=== PATIENT | male | born 1955 | race Caucasian/White ===

== ENCOUNTER 2022-05-12 13:16 | Inpatient (IN) | payer OTHER, BC ==
[~2022-05-12] VITALS: Ht 177.8 cm; Wt 88.8 kg
[2022-05-12] MEDS ORDERED: fentaNYL INJ 100 MCG/2 ML AMP IVP ONE (13:45)
--- NOTE | 2022-05-12 14:26 | ED Fall/Injury ---
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 Source: patient Exam Limitations: no limitations History of Present Illness Date Seen by Provider: May 12, 2022 Time Seen by Provider: 13:33 Initial Comments This is 66-year-old gentleman presents to the emergency room by private vehicle after having a fall injury at work. 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 He got tangled up and fell landing directly on his right hip. He denies any injury other than the right hip and knee. He has shortening and external rotation of the right lower extremity. He complains of significant pain in the right hip as well as some lesser pain in the right knee. 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 His only medications are related to his vision issues. 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 I later spoke with patient's sister, Bev Slater, who helps care for him. She can be contacted at [phone]. She lives in [place]. Bev states that Brennen has high functioning intellectual disability. He can write some but does not read well. He is his own guardian but should not sign paperwork without her input due to his illiteracy. His supervisors at work are Bethany Mccain and Gabriela Hector at [employer] and they can be contacted at [phone]. Patient reports he gets a monthly injection which Bev identifies as Prolixin. This is administered by [facility]. Patient has a business card showing that his next appointment for injection is May 31. Allergies and Home Medications Allergies Coded Allergies: No Known Drug Allergies (Unverified , 05/12/22) Patient Home Medication List Home Medication List Reviewed: Yes Benztropine Mesylate (Benztropine Mesylate) 2 Mg Tablet, 2 MG PO BID, (Reported) Entered as Reported by: NARAYAN OROZCO on 05/12/222009 Last Action: Reviewed Fluphenazine Decanoate (Fluphenazine Decanoate) 25 Mg/Ml Vial, 0.75 ML IJ Q3 WEEKS, (Reported) Entered as Reported by: NARAYAN OROZCO on 05/12/222009 Last Action: Reviewed Review of Systems Review of Systems Constitutional: no symptoms reported Eyes: No Symptoms Reported Ears, Nose, Mouth, Throat: no symptoms reported Respiratory: no symptoms reported Cardiovascular: no symptoms reported Gastrointestinal: no symptoms reported Genitourinary: no symptoms reported Musculoskeletal: see HPI Skin: no symptoms reported Psychiatric/Neurological: See HPI Past Dzmkwyj-Ojmmme-Gdxfon Hx Patient Social History Tobacco Use?: No Use of E-Cig and/or Vaping dev: No Substance use?: No Alcohol Use?: No Pt feels they are or have been: No Past Medical History Surgery/Hospitalization HX: LEGALLY BLIND Surgeries: No Respiratory: No Cardiac: No Neurological: Yes (High functioning intellectual disability) Reproductive Disorders: No Genitourinary: No Gastrointestinal: No Musculoskeletal: No Endocrine: No HEENT: Yes (Legally blind) Loss of Vision: Bilateral Cancer: No Psychosocial: No Integumentary: No Physical Exam Vital Signs Vital Signs - First Documented 05/12/22 13:28 Temp 36.3 Pulse 90 Resp 16 B/P (MAP) 131/78 (95) Pulse Ox 97 O2 Delivery Room Air Capillary Refill : Less Than 3 Seconds Height, Weight, BMI Height: '" Weight: lbs. oz. kg; BMI Method: General Appearance: WD/WN, mild distress HEENT: PERRL/EOMI, normal ENT inspection Neck: normal inspection Cardiovascular: regular rate, rhythm, no edema, no murmur Respiratory: lungs clear, normal breath sounds, no respiratory distress Gastrointestinal: normal bowel sounds, non tender, soft Extremities: other (Shortening and external rotation of the right lower extremity with tenderness over the hip. Lesser tenderness through the thigh into the knee. Distal exam is unremarkable. Pedal pulse is palpable. Patient can wiggle his toes. He describes decreased sensation.) Progress/Results/Core Measures Results/Orders Lab Results Laboratory Tests Test 05/12/22 13:40 Range/Units White Blood Count 8.6 4.3-11.0 10^3/uL Red Blood Count 3.67 L 4.30-5.52 10^6/uL Hemoglobin 11.3 L 13.3-17.7 g/dL Hematocrit 33 L 40-54 % Mean Corpuscular Volume 90 80-99 fL Mean Corpuscular Hemoglobin 31 25-34 pg Mean Corpuscular Hemoglobin Concent 34 32-36 g/dL Red Cell Distribution Width 12.3 10.0-14.5 % Platelet Count 197 130-400 10^3/uL Mean Platelet Volume 10.6 9.0-12.2 fL Immature Granulocyte % (Auto) 0 % Neutrophils (%) (Auto) 76 H 42-75 % Lymphocytes (%) (Auto) 16 12-44 % Monocytes (%) (Auto) 7 0-12 % Eosinophils (%) (Auto) 1 0-10 % Basophils (%) (Auto) 0 0-10 % Neutrophils # (Auto) 6.5 1.8-7.8 10^3/uL Lymphocytes # (Auto) 1.4 1.0-4.0 10^3/uL Monocytes # (Auto) 0.6 0.0-1.0 10^3/uL Eosinophils # (Auto) 0.1 0.0-0.3 10^3/uL Basophils # (Auto) 0.0 0.0-0.1 10^3/uL Immature Granulocyte # (Auto) 0.0 0.0-0.1 10^3/uL Prothrombin Time 14.5 12.2-14.7 SEC INR Comment 1.1 0.8-1.4 Activated Partial Thromboplast Time 31 24-35 SEC Sodium Level 138 135-145 MMOL/L Potassium Level 3.8 3.6-5.0 MMOL/L Chloride Level 102 98-107 MMOL/L Carbon Dioxide Level 27 21-32 MMOL/L Anion Gap 9 5-14 MMOL/L Blood Urea Nitrogen 10 7-18 MG/DL Creatinine 0.96 0.60-1.30 MG/DL Estimat Glomerular Filtration Rate 88 BUN/Creatinine Ratio 10 Glucose Level 107 H 70-105 MG/DL Calcium Level 8.8 8.5-10.1 MG/DL Corrected Calcium 8.8 8.5-10.1 MG/DL Total Bilirubin 0.5 0.1-1.0 MG/DL Aspartate Amino Transf (AST/SGOT) 16 5-34 U/L Alanine Aminotransferase (ALT/SGPT) 16 0-55 U/L Alkaline Phosphatase 62 40-136 U/L Total Protein 6.9 6.4-8.2 GM/DL Albumin 4.0 3.2-4.5 GM/DL My Orders Orders - HAILY GAR MD Fentanyl Inj (Sublimaze Injection) (05/12/22 13:45) Ed Iv/Invasive Line Start (05/12/22 13:40) Femur 2 View Right (05/12/22 13:41) Pelvis (Ap) (05/12/22 13:41) Tibia Fibula 2 View Right (05/12/22 13:41) Cbc With Automated Diff (05/12/22 14:51) Comprehensive Metabolic Panel (05/12/22 14:51) Protime With Inr (05/12/22 14:51) Partial Thromboplastin Time (05/12/22 14:51) Chest 1 View Ap/Pa Only (05/12/22 14:51) Morphine Injection (Morphine Injection (05/12/22 14:51) Medications Given in ED Vital Signs/I&O 05/12/22 05/12/22 13:28 14:49 Temp 36.3 36.3 Pulse 90 85 Resp 16 16 B/P (MAP) 131/78 (95) 124/68 Pulse Ox 97 99 O2 Delivery Room Air Room Air Blood Pressure Mean: 95 Progress Progress Note : Time: 15:31 Progress Note Patient was found to have right hip fracture. Admission was excepted by Dr. PATTERSON at [facility] in [place]. He asked that the attending be assigned to the hospitalist service. Patient has been treated with fentanyl and morphine for pain control. Diagnostic Imaging Diagonstic Imaging: Xray Plain Films/CT/US/NM/MRI: pelvis, femur, leg Comments All x-rays reviewed by me and report reviewed. See report below: NAME: BRENNEN SHORE Brodie [facility] REC#: [id number] PT STATUS: REG ER : 1955 PHYSICIAN: HAILY GAR MD ADMIT DATE: 05/12/22/ER FS Draft Date of Exam:05/12/22 TIBIA FIBULA 2 VIEW RIGHT CLINICAL INDICATIONS: Patient status post fall. EXAMS: 1.: X-ray of the pelvis AP view. 2: X-ray of the right femur, 4 views. 3: X-ray of the right tibia-fibula, 3 views. COMPARISON: None. FINDINGS: X-rays of the right femur and pelvis shows a comminuted intertrochanteric fracture involving the proximal right femur with varus angulation. There is slight medial displacement of the lesser trochanteric fracture component. The right femoral acetabular joint space is intact. There is no other fracture involving the right femur. There is no fracture involving the pelvis or left hip. There is enthesopathy of the ischium. There is mild sclerosis of sacroiliac joints. There are degenerative spurs involving the lower lumbar spine. Phleboliths are seen in the pelvis. There are small degenerative spurs involving the tricompartmental regions with the lateral compartment affected the most. There is joint space narrowing involving the medial compartment. There is no right knee effusion. The tibia fibula show no fractures. Ankle mortise and syndesmotic joints unremarkable. IMPRESSION: 1: There is a comminuted intertrochanteric fracture involving the proximal right femur with varus angulation. 2: The remainder of the pelvis, right femur, and right tibia fibula show no other fracture or dislocation. 3: There is degenerative disease of the right knee. Dictated on workstation # [id number] Dict: 05/12/22 1421 Trans: 05/12/22 1428 [facility] [id number] Interpreted by: AAMIR LEGGETT MD Departure Communication (Admissions) Time/Spoke to Admitting Phy: 15:25 Dr. Patterson Time/Spoke to Consulting Phy: 15:40 Dr. Key Impression Primary Impression: Intertrochanteric fracture of right hip Qualified Codes: S72.141A - Displaced intertrochanteric fracture of right femur, initial encounter for closed fracture Additional Impression: Fall on same level Qualified Codes: W18.30XA - Fall on same level, unspecified, initial encounter Disposition: 01 HOME, SELF-CARE Condition: Stable Admissions Decision to Admit Reason: Admit from ER (General) Decision to Admit/Date: May 12, 2022 Time/Decision to Admit Time: 15:25 Transfer Transfer Reason: Exceeds level of care Time Spoke to Accepting Phy: 15:25 Transfer Progress Notes Transfer accepted by Dr. Patterson with Dr. Key consulted. Transfer Time: 15:30 Transfer Facility: [facility] Method of Transfer: EMS HAILY GAR MD May 12, 2022 14:26
[2022-05-12] MEDS ORDERED: morphine INJ 10 MG/ML 1ML (SYR OR VIAL) IVP STA (14:51)
[2022-05-12 15:05] LABS: BASOPHILS % (AUTO) 0 % (0-10); EOSINOPHILS # (AUTO) 0.1 10^3/uL (0.0-0.3); EOSINOPHILS % (AUTO) 1 % (0-10); HEMATOCRIT 33 % (40-54); HEMOGLOBIN 11.3 g/dL (13.3-17.7); LYMPHOCYTES # (AUTO) 1.4 10^3/uL (1.0-4.0); LYMPHOCYTES % (AUTO) 16 % (12-44); MEAN CORPUSCULAR HEMOGLOBIN 31 pg (25-34); MEAN CORPUSCULAR HGB CONC 34 g/dL (32-36); MEAN CORPUSCULAR VOLUME 90 fL (80-99); MEAN PLATELET VOLUME 10.6 fL (9.0-12.2); MONOCYTES # (AUTO) 0.6 10^3/uL (0.0-1.0); MONOCYTES % (AUTO) 7 % (0-12); NEUTROPHILS # (AUTO) 6.5 10^3/uL (1.8-7.8); NEUTROPHILS % (AUTO) 76 % (42-75); PLATELET COUNT 197 10^3/uL (130-400); WHITE BLOOD COUNT 8.6 10^3/uL (4.3-11.0)
--- NOTE | 2022-05-12 15:07 | Diagnostic Imaging Report ---
EXAMINATION: Chest, one view. HISTORY: Preoperative evaluation. COMPARISON: None available. FINDINGS: Heart size and pulmonary vasculature are normal. The lungs are clear without consolidation, pleural effusion, or pneumothorax. Degenerative changes of the thoracic spine. Osseous structures are otherwise intact. IMPRESSION: 1. No acute radiographic abnormality in the chest. Dictated by: Dictated on workstation # [id number]
[2022-05-12 15:11] LABS: INR 1.1 (0.8-1.4); PROTHROMBIN TIME PATIENT 14.5 SEC (12.2-14.7)
[2022-05-12 15:17] LABS: POTASSIUM 3.8 MMOL/L (3.6-5.0)
[2022-05-12 15:18] LABS: BILIRUBIN,TOTAL 0.5 MG/DL (0.1-1.0); CALCIUM 8.8 MG/DL (8.5-10.1); CREATININE SERUM 0.96 MG/DL (0.60-1.30); TOTAL PROTEIN 6.9 GM/DL (6.4-8.2)
--- NOTE | 2022-05-12 16:16 | Diagnostic Imaging Report ---
CLINICAL INDICATIONS: Patient is status post fall. EXAMS: 1.: X-ray of the pelvis AP view. 2: X-ray of the right femur, 4 views. 3: X-ray of the right tibia-fibula, 3 views. COMPARISON: None. FINDINGS: X-rays of the right femur and pelvis shows a comminuted intertrochanteric fracture involving the proximal right femur with varus angulation. There is slight medial displacement of the lesser trochanteric fracture component. The right femoral acetabular joint space is intact. There is no other fracture involving the right femur. There is no fracture involving the pelvis or left hip. There is enthesopathy of the ischium. There is mild sclerosis of sacroiliac joints. There are degenerative spurs involving the lower lumbar spine. Phleboliths are seen in the pelvis. There are small degenerative spurs involving the tricompartmental regions with the lateral compartment affected the most. There is joint space narrowing involving the medial compartment. There is no right knee effusion. The tibia fibula show no fractures. Ankle mortise and syndesmotic joints unremarkable. IMPRESSION: 1: There is a comminuted intertrochanteric fracture involving the proximal right femur with varus angulation. 2: The remainder of the pelvis, right femur, and right tibia fibula show no other fracture or dislocation. 3: There is degenerative disease of the right knee. Dictated by: Dictated on workstation # [id number]
[2022-05-12 17:30] VITALS: BP 108/64
[2022-05-12] MEDS: LACTATED RINGERS 1,000 ML IV SCH (18:50)
--- NOTE | 2022-05-12 19:05 | HISTORY AND PHYSICAL ---
REASON FOR REFERRAL: Right intertrochanteric femur fracture. HISTORY: The patient is a 66-year-old gentleman who fell at work while pushing a cart. He got tangled up and fell on his right hip. He presented to an outside facility where he was found to have a right intertrochanteric femur fracture. He denies any significant past medical history regarding his hip. He reports he was doing well prior to that. He has some mild intellectual disability, but is independently living. He denies paresthesias. ALLERGIES: No known drug allergies. PAST MEDICAL HISTORY: significant for mental health. MEDICATIONS: Antischizophrenic q. month. PHYSICAL EXAMINATION: GENERAL: The patient is well-developed, well-nourished, in no acute distress. HEENT: Normocephalic, atraumatic. Pupils equal, round, react to light. Oropharynx is clear. NECK: Supple, with no lymphadenopathy. LUNGS: Clear to auscultation bilaterally. HEART: Regular rate and rhythm. ABDOMEN: Soft, nontender, nondistended. EXTREMITIES: Right lower extremity shortened and externally rotated. He has pain with internal and external rotation of the hip. He has symmetric pulses with intact sensation distally. He is tender over the lateral aspect of his hip. IMPRESSION: Closed displaced right intertrochanteric femur fracture. PLAN: Intramedullary nail to the right hip. The risks, benefits, options, and limitations and recovery were discussed with the patient and his sister. They understand and wished to proceed. Job ID: [id number] DocumentID: [id number] Dictated Date: 05/12/2022 18:50:41 [employer]othermal Operations Manager Date: 05/12/2022 19:03:00 Dictated By: IRMA HOLDEN MD
[2022-05-12] MEDS: morphine INJ 10 MG/ML 1ML (SYR OR VIAL) IV PRN (19:32)
[2022-05-12 20:00] VITALS: BP 128/76
[2022-05-12] MEDS ORDERED: BENZ2TAB6 PO (20:10)
[2022-05-12] MEDS ORDERED: FLUP25VI3 IJ (20:10)
[2022-05-12 23:12] VITALS: BP 121/72
[2022-05-13] VITALS (9 sets, daily range): BP systolic 118–136; BP diastolic 70–80
[2022-05-13] MEDS: morphine INJ 10 MG/ML 1ML (SYR OR VIAL) IV PRN ×3 (03:34→13:42)
[2022-05-13] MEDS: LACTATED RINGERS 1,000 ML IV SCH ×2 (03:34→13:42)
--- NOTE | 2022-05-13 06:51 | Progress Note-Pre Operative ---
Pre-Operative Progress Note Date of Available H&P: May 12, 2022 Date H&P Reviewed: May 13, 2022 Time H&P Reviewed: 06:51 Changes from last HP none Pre-Operative Diagnosis: right intertrochanteric femur fracture IRMA HOLDEN MD May 13, 2022 06:51
--- NOTE | 2022-05-13 06:52 | Progress Note-Post Operative ---
Post-Operative Progess Note Surgeon (s)/Service Team Leader (s) Surgeon IRMA HOLDEN MD Service Team Leader: Maximilian Clark Pre-Operative Diagnosis right intertrochanteric femur fracture Post-Operative Diagnosis right intertrochanteric femur fracture Procedure & Operative Findings Date of Procedure 05/13/22 Procedure Performed/Findings right hip intramedullary nail Anesthesia Type GETA Estimated Blood Loss Estimated blood loss (mL): 100ml Specimens/Packing Specimens Removed none Packing: none IRMA HOLDEN MD May 13, 2022 06:52
--- NOTE | 2022-05-13 10:16 | History & Physical-Hospitalist ---
History of Present Illness Date Seen 05/13/22 Time Seen by a Provider: 10:16 Attending Physician Chikis,Local Physician PCP Admitting Physician: Peter Patterson MD Attending Physician: Peter Patterson MD Referring Physician Date of Admission May 12, 2022 at 17:20 Home Medications & Allergies Home Medications Reviewed patient Home Medication Reconciliation performed by pharmacy medication reconciliations food service technician and/or nursing. Patients Allergies have been reviewed. Allergies Allergies Coded Allergies No Known Drug Allergies (Ktqkdxpubw19/15/22) Past Hlwpwtx-Onzweo-Xzccmf Hx Patient Social History Tobacco Use?: No Smoking Status: Never a Smoker Use of E-Cig and/or Vaping dev: No Use of E-Cig and/or Vaping Jc: Never a User Substance use?: No Alcohol Use?: No Pt feels they are or have been: No Immunizations Up To Date Date of Influenza Vaccine: Feb 10, 2022 Tetanus Booster (TDap): Unknown Hepatitis A: No Hepatitis B: No Current Status Advance Directives: No Communicates: Verbally Primary Language: Italian Preferred Spoken Language: Italian Is interpretation needed?: No Sensory deficits: Vision impairment Implanted or Applied Medical D: None Past Medical History Loss of Vision: Bilateral Physical Exam Physical Exam Vital Signs Vital Signs - First Documented 05/12/22 13:28 Temp 36.3 Pulse 90 Resp 16 B/P (MAP) 131/78 (95) Pulse Ox 97 O2 Delivery Room Air Capillary Refill : Less Than 3 Seconds Height, Weight, BMI Height: '" Weight: lbs. oz. kg; 28.08 BMI Method: Results Results/Procedures Labs Laboratory Tests 05/12/22 13:40 Patient resulted labs reviewed. AMEE LEO MD May 13, 2022 10:16
--- NOTE | 2022-05-13 10:17 | Consultation - Hospitalist ---
HPI History of Present Illness: HPI/Chief Complaint Patient is a 66-year-old male who presented to the emergency department due to a fall and hip injury. 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 Imaging revealed a right hip fracture. He was admitted to the orthopedic surger y service for operative repair. I am consulted for medical management. He denies any complaints at this time and states his pain is well controlled. He is unsure when he will go to surgery but has already seen the surgeon and reports that it will be sometime today. Exam Limitations: no limitations Date Seen 05/13/22 Attending Physician Chikis,Local Physician PCP Admitting Physician: Peter Patterson MD Attending Physician: Peter Patterson MD Referring Physician Date of Admission May 12, 2022 at 17:20 Home Medications & Allergies Home Medications Reviewed patient Home Medication Reconciliation performed by pharmacy medication reconciliations radiochemical technician and/or nursing. Patients Allergies have been reviewed. Allergies Allergies Coded Allergies No Known Drug Allergies (Usmuqhoahh16/15/22) Past Adhnctn-Aubyby-Pgfdcz Hx Patient Social History Tobacco Use?: No Smoking Status: Never a Smoker Use of E-Cig and/or Vaping dev: No Use of E-Cig and/or Vaping Jc: Never a User Substance use?: No Alcohol Use?: No Pt feels they are or have been: No Immunizations Up To Date Date of Influenza Vaccine: Feb 10, 2022 Tetanus Booster (TDap): Unknown Hepatitis A: No Hepatitis B: No Current Status Advance Directives: No Communicates: Verbally Primary Language: Marshallese Preferred Spoken Language: Marshallese Is interpretation needed?: No Sensory deficits: Vision impairment Implanted or Applied Medical D: None Past Medical History Loss of Vision: Bilateral Family Medical History Reviewed Nursing Family Hx Review of Systems Constitutional: no symptoms reported EENTM: no symptoms reported Respiratory: no symptoms reported Cardiovascular: no symptoms reported Gastrointestinal: no symptoms reported Genitourinary: no symptoms reported Musculoskeletal: see HPI, joint pain Skin: no symptoms reported Psychiatric/Neurological: No Symptoms Reported Physical Exam Physical Exam Vital Signs Vital Signs - First Documented 05/12/22 13:28 Temp 36.3 Pulse 90 Resp 16 B/P (MAP) 131/78 (95) Pulse Ox 97 O2 Delivery Room Air Capillary Refill : Less Than 3 Seconds Height, Weight, BMI Height: '" Weight: lbs. oz. kg; 28.08 BMI Method: General Appearance: No Apparent Distress, WD/WN HEENT: PERRL/EOMI, Moist Mucous Membranes; No Scleral Icterus (L), No Scleral Icterus (R) Neck: Normal Inspection, Supple Respiratory: Lungs Clear, No Accessory Muscle Use, No Respiratory Distress Cardiovascular: Regular Rate, Rhythm, No JVD, No Murmur Gastrointestinal: Normal Bowel Sounds, Non Tender, Soft Extremity: Normal Capillary Refill, No Calf Tenderness, No Pedal Edema Neurologic/Psychiatric: Alert, Oriented x3, Normal Mood/Affect Skin: Normal Color, Warm/Dry Results Results/Procedures Labs Laboratory Tests 05/12/22 13:40 Patient resulted labs reviewed. Imaging: Reviewed Imaging Report Imaging [facility] [place] NAME: SANOTS SHORE [facility] REC#: [id number] PT STATUS: REG ER : 1955 PHYSICIAN: HAILY GAR MD ADMIT DATE: 05/12/22/ER FS Signed Date of Exam:05/12/22 PELVIS (AP) CLINICAL INDICATIONS: Patient is status post fall. EXAMS: 1.: X-ray of the pelvis AP view. 2: X-ray of the right femur, 4 views. 3: X-ray of the right tibia-fibula, 3 views. COMPARISON: None. FINDINGS: X-rays of the right femur and pelvis shows a comminuted intertrochanteric fracture involving the proximal right femur with varus angulation. There is slight medial displacement of the lesser trochanteric fracture component. The right femoral acetabular joint space is intact. There is no other fracture involving the right femur. There is no fracture involving the pelvis or left hip. There is enthesopathy of the ischium. There is mild sclerosis of sacroiliac joints. There are degenerative spurs involving the lower lumbar spine. Phleboliths are seen in the pelvis. There are small degenerative spurs involving the tricompartmental regions with the lateral compartment affected the most. There is joint space narrowing involving the medial compartment. There is no right knee effusion. The tibia fibula show no fractures. Ankle mortise and syndesmotic joints unremarkable. IMPRESSION: 1: There is a comminuted intertrochanteric fracture involving the proximal right femur with varus angulation. 2: The remainder of the pelvis, right femur, and right tibia fibula show no other fracture or dislocation. 3: There is degenerative disease of the right knee. Dictated by: Dictated on workstation # [id number] Dict: 05/12/22 1421 Trans: 05/12/22 1614 [id number] Interpreted by: AAMIR LEGGETT MD Electronically signed by: AAMIR LEGGETT MD 05/12/22 1614 Assessment/Plan Assessment and Plan Assess & Plan/Chief Complaint Right hip fracture Management per primary Pain regimen Plan for OR today per patient NPO PT/OT following surgery IRF eval pending out PT goes Presumed schizophrenia Maintained on fluphenazine DVT ppx: Following surgery Diagnosis/Problems Diagnosis/Problems (1) Intertrochanteric fracture of right hip Status: Acute Qualifiers: Encounter type: initial encounter Fracture type: closed Fracture alignment: displaced Qualified Codes: S72.141A - Displaced intertrochanteric fracture of right femur, initial encounter for closed fracture AMEE LEO MD May 13, 2022 10:17
[2022-05-13] MEDS ORDERED: ONDANSETRON 4 MG/2 ML (SDV) Z0FRAN ONE (13:59)
[2022-05-13] MEDS ORDERED: proPOfol 200 MG/20 ML (DIPRIVAN) VIAL IV ONE (13:59)
[2022-05-13] MEDS ORDERED: fentaNYL INJ 100 MCG/2 ML AMP ONE (13:59)
[2022-05-13] MEDS ORDERED: MIDAZOLAM 2 MG/2 ML (VERSED) VIAL ONE (13:59)
[2022-05-13] MEDS ORDERED: SEVOFLURANE (ULTANE) 15 ML INHAL SOLN ONE ×2 (13:59→15:42)
[2022-05-13] MEDS ORDERED: LIDOCAINE PF 2% 5 ML (XYLOCAINE) VIAL ONE (13:59)
[2022-05-13] MEDS ORDERED: BUPIVACAINE 0.25% 30 ML (SENSORCAINE) VIAL ONE (14:04)
[2022-05-13] MEDS ORDERED: LACTATED RINGERS 1,000 ML IV PRN (14:15)
[2022-05-13] MEDS ORDERED: morphine INJ 4 MG/ML 1 ML (VIAL/SYRINGE) IVP PRN (14:30)
[2022-05-13] MEDS ORDERED: ONDANSETRON 4 MG/2 ML (SDV) Z0FRAN IVP PRN ×2 (14:30→15:45)
[2022-05-13] MEDS: ceFAZolin INJECTION 2,000 MG in NS (IVPB) 50 ML IV SCH (14:35)
[2022-05-13] MEDS ORDERED: ROPIVACAINE 5MG/ML 30ML VIAL ONE (14:48)
[2022-05-13] MEDS ORDERED: ceFAZolin INJECTION 2,000 MG in NS (IVPB) 50 ML IV NR (15:00)
[2022-05-13] MEDS ORDERED: KETOROLAC 30 MG/ML VIAL ONE (15:18)
[2022-05-13] MEDS ORDERED: OXYC1TAB11 PO (15:36)
--- NOTE | 2022-05-13 15:38 | D/C HH Face to Face Order ---
D/C Face to Face Orders Reconcile Patient Problems Problems Reviewed?: Yes Instructions for Patient [facility] [employer], Patient Instructions/FollowUp: two weeks Physician to follow Patient: two weeks Discharge Diet for Home: Regular Diet Patient Data-Allergies,Ht & Wt Patient Allergies: Coded Allergies: No Known Drug Allergies (Unverified , 05/12/22) Home Health Need/Face to Face Date of Face to Face: May 13, 2022 Clinical Findings: Instability, Muscle weakness, Non or partial weight bearing, Unsteady gait I have seen Pt wenl-bt-blvx: Yes Discharged To: Home Diagnosis/Conditions: right hip IM nail Patient is Homebound due to: Jayashree fall risk due to instabilty, Pain w/ambulation Homebound Status Due to the above stated illness, injury or surgical procedure (medical condition or diagnosis) and associated clinical findings, the patient is homebound because of his/her inability to leave home except with aid of a supportive device and/or person AND leaving the home requires a considerable and taxing effort or is medically contraindicated. Pt req the following assistanc: [facility] Nursing Orders Home Health Services Order: Physical Therapy-Evaluate & Treat [facility] Infusion Therapy Line Start Date: May 12, 2022 Therapy Orders Therapy Orders: Physical Therapy, PT to assess for OT Therapy Specific Orders: Eval assistive deivces, Teach enviro modifica tions/safety, Gait training, Increase strength/endurance, Provider maintenance therapy, Restore ROM Certify Stmt I certify that this patient is under my care and that I, a nurse practitioner or a physician; a program services assistant working with me, had a face to face encounter that - meets the physician face to face encounter requirements with this patient as dated. IRMA HOLDEN MD May 13, 2022 15:38
[2022-05-13] MEDS ORDERED: HYDROmorphone 2 MG/ML VIAL (DILAUDID) IV ONE (15:45)
--- NOTE | 2022-05-13 16:19 | Diagnostic Imaging Report ---
INDICATION: Right hip fracture. Three views are obtained with a portable intensifier in surgery. 60.3 seconds of fluoroscopy time was used. Intraoperative views demonstrate hardware in place in the right proximal femur in the femoral neck and shaft, with anatomic alignment of the intertrochanteric fracture. There is no unexpected radiopaque foreign body. IMPRESSION: Well-aligned intertrochanteric fracture of right proximal femur with no unexpected radiopaque foreign body. Dictated by: Dictated on workstation # [id number]
[2022-05-14] VITALS (7 sets, daily range): BP systolic 116–134; BP diastolic 63–75
--- NOTE | 2022-05-14 01:28 | OPERATIVE REPORT ---
DATE OF SERVICE: 05/13/2022 PREOPERATIVE DIAGNOSIS: Closed displaced right intertrochanteric femur fracture. POSTOPERATIVE DIAGNOSIS: Closed displaced right intertrochanteric femur fracture. PROCEDURE: Right hip intramedullary nail. SURGEON: Peter Holden MD REPAIR ORDER CLERK: Maximilian Clark, who assisted throughout the procedure and closed the incisions. ANESTHESIA: General endotracheal by Lucian Lemus CRNA. ESTIMATED BLOOD LOSS: 100 mL. DRAINS: None. COMPLICATIONS: None. POSTOPERATIVE PLAN: Toe touch weightbearing right lower extremity. MATERIALS: Synthes short TFN nail, 10 mm diameter with a 110 mm blade. The patient was transported to recovery room awake and stable. STATEMENT OF MEDICAL NECESSITY: The patient is a 66-year-old gentleman who fell at work yesterday and was found to have a closed displaced right intertrochanteric femur fracture. In order to maintain his ambulatory status, the patient elected to proceed with surgical intervention. DESCRIPTION OF PROCEDURE: After risks and benefits of the procedure were discussed and questions were answered, informed consent was signed and placed on the chart. The operative site was confirmed in the preoperative holding area initialed by the surgeon. The patient was then transported to the operating room. After adequate levels of general endotracheal anesthetic was obtained, a timeout was called confirming the operative site. The patient was carefully placed on the fracture table and gentle longitudinal traction was applied. Fluoroscopy in AP and lateral planes revealed anatomic alignment in the AP plane, however, there was some slight offset medially on the lateral projection; however, this was felt to be acceptable due to the patient's young age and bone quality. The right hip and lower extremity were then prepped and draped in the usual sterile fashion. An incision was made from the greater trochanter extending proximally. Then, the iliotibial band was incised in line with the incision. The guidewire was passed into the femoral canal and felt to be in excellent position under AP and lateral fluoroscopic visualization. This was overreamed proximally. The 10 mm short nail was then placed with good purchase obtained. This was found to be in good position in both the AP and lateral planes. Through a percutaneous incision, the guidewire was passed into the femoral head. Again, there was some slight offset medially on the lateral projection, but this was felt to be acceptable. This was then overreamed laterally and a 110 mm blade was placed with excellent purchase obtained. This was then statically locked proximally and through the same distal incision, the static screw was placed with excellent purchase obtained. Fluoroscopy in AP, lateral and oblique planes revealed well reduced fractures with well-placed hardware. The wounds were copiously irrigated. The iliotibial band was closed with #1 Vicryl in [id number] interrupted fashion. The wound was further irrigated. A 3-0 Vicryl was used to close both subcutaneous layers of the skin incisions and the skin was closed with tray. The incisions were infiltrated with plain Marcaine. A soft dressing was applied and the patient was transported to the operating room, awake and in stable condition. Job ID: [id number] DocumentID: [id number] Dictated Date: 05/13/2022 15:34:33 Photographic Editor Date: 05/14/2022 01:26:00 Dictated By: PETER HOLDEN MD
[2022-05-14] MEDS: LACTATED RINGERS 1,000 ML IV SCH (02:50)
[2022-05-14 06:11] LABS: HEMOGLOBIN 9.4 g/dL (13.3-17.7)
[2022-05-14] MEDS: ceFAZolin INJECTION 2,000 MG in NS (IVPB) 50 ML IV SCH (06:46)
--- NOTE | 2022-05-14 07:31 | Anesthesia-General Post-Op ---
General Patient Condition Mental Status/LOC: Same as Preop Cardiovascular: Satisfactory Nausea/Vomiting: Absent Respiratory: Satisfactory Pain: Controlled Complications: Absent Post Op Complications Complications None Follow Up Care/Instructions Patient Instructions None needed. Anesthesia/Patient Condition Patient Condition Patient is doing well, no complaints, stable vital signs, no apparent adverse anesthesia problems. No complications reported per nursing. D/C home per [facility] Criteria: Yes CAITIE PINEDA CRNA May 14, 2022 07:30
[2022-05-14] MEDS: ENOXAPARIN 40 MG/0.4 ML (LOVENOX) SYR SC SCH (08:20)
[2022-05-14] MEDS: HYDROcodone/APAP 7.5 MG/325 MG (LORTAB, LORCET PLUS) TABLET PO PRN ×2 (08:20→23:46)
--- NOTE | 2022-05-14 09:18 | Progress Note ---
Standard Progress Note Progress Notes/Assess & Plan Date Seen by a Provider: May 14, 2022 Time Seen by a Provider: 09:17 Progress/Assessment & Plan no complaints Vital Signs Date Time Temp Pulse Resp B/P (MAP) Pulse Ox O2 Delivery O2 Flow Rate FiO2 05/14/22 08:22 37.3 85 18 134/74 (94) 96 Room Air 05/14/22 03:23 37.4 90 16 130/64 (86) 94 Room Air 05/14/22 00:00 37.2 86 16 123/64 (83) 94 Room Air 05/13/22 20:00 Room Air 05/13/22 19:25 36.8 93 18 136/77 (96) 92 Room Air 05/13/22 16:15 Room Air 05/13/22 16:10 37.0 16 118/79 (92) 94 Room Air 05/13/22 16:05 OxyMask 2.00 05/13/22 16:00 37.1 93 18 125/73 (90) 93 Room Air 05/13/22 16:00 15 135/79 (97) 99 OxyMask 3.00 05/13/22 15:50 15 122/80 (94) 98 OxyMask 6.00 05/13/22 15:50 OxyMask 3.00 05/13/22 15:40 16 120/78 (92) 98 OxyMask 6.00 05/13/22 15:32 36.7 16 119/77 (91) 98 OxyMask 6.00 05/13/22 15:32 OxyMask 6.00 05/13/22 11:55 37.5 91 19 125/74 (91) 92 Room Air I & O 05/14/22 07:00 Intake Total 2150 ml Output Total 2100 ml Balance 50 ml Laboratory Tests Test 05/14/22 05:17 Range/Units Hemoglobin 9.4 L 13.3-17.7 g/dL Hematocrit 28 L 40-54 % R hip dressing intact intact DF and PF of toes and ankle sensation intact throughout equal pulses s/p R hip IM ash PT/OT IRMA Couch MD May 14, 2022 09:18
--- NOTE | 2022-05-14 09:31 | Physical Therapy Evaluation ---
PT Evaluation-General Medical Diagnosis Admission Date May 12, 2022 at 17:20 Medical Diagnosis: (R) femur fracture Onset Date: May 13, 2022 Therapy Diagnosis Therapy Diagnosis: difficulty with walking Precautions Precautions/Isolations: Fall Prevention, Standard Precautions Weight Bear Status Right Lower Extremity: Right Touch Toe Bearing Left Lower Extremity: Left Weight Bearing/Tolerated Referral Physician: Yesenia Reason for Referral: Evaluation/Treatment Social History Home: Single Level Current Living Status: Alone Prior Prior Level of Function SCALE: Activities may be completed with or without assistive devices. 9-Phlxehpdcb-mpzumgz completes the activity by him/herself with no assistance from a helper. 5-Set-up or Clean-up Assistance-helper sets up or cleans up; patient completes activity. [place] assists only prior to or following the activity. 4-Supervision or Touching Assistance-helper provides verbal cues and/or touching/steadying and/or contact guard assistance as patient completes activity. Assistance may be provided throughout the activity or intermittently. 3-Partial/Moderate Assistance-helper does LESS THAN HALF the effort. [place] lifts, holds or supports trunk or limbs, but provides less than half the effort. 2-Substantial/Maximal Assistance-helper does MORE THAN HALF the effort. [place] lifts or holds trunk or limbs and provides more than half the effort. 6-Zdmvrsngd-bickmi does ALL the effort. Patient does none of the effort to complete the activity. Or, the assistance of 2 or more helpers is required for the patient to complete the activity. If activity was not attempted, code reason: 7-Patient Refused. 9-Not Applicable-not attempted and the patient did not perform the activity before the current illness, exacerbation or injury. 10-Not Attempted due to Environmental Limitations-(lack of equipment, weather restraints, etc.). 88-Not Attempted due to Medical Conditions or Safety Concerns. Bed Mobility: 6 Transfers (B,C,W/C): 6 Gait: 6 Stairs: 6 Indoor Mobility (Ambulation): Independent Stairs: Independent PT Evaluation-Current Subjective The patient states that he fell at work yesterday. He reports that he had an x- ray that revealed a fracture in the femur. He had an ORIF yesterday. Pain Numeric Pain Scale: 6 Location: Right Location Body Site: Thigh Objective Patient Orientation: Person, Place, Time, Situation Attachments: [place] Catheter, IV ROM/Strength ROM Upper Extremities WFL ROM Lower Extremities 10 degrees of abduction, 30 degrees of hip flexion Strength Lower Extremities 5/5 (L) LE Neuromuscular (Tone, Coordination, Reflexes) intact Transfers Roll Left to Right (QC): 4 Sit to Lying (QC): 4 Lying to Sitting/Side of Bed(Q: 4 Sit to Stand (QC): 4 Gait Does the Patient Walk?: Yes Mode of Locomotion: Walk Anticipated Mode of Locomotion: Walk Walk 10 feet (QC): 4 Walk 50 ft with 2 Turns(QC): 88 Walk 150 ft (QC): 88 Distance: 10' Gait Assistive Device: FWW Balance Sitting Static: Fair Sitting Dynamic: Fair Standing Static: Poor Standing Dynamic: Poor Assessment/Needs 66 y.o. male s/p ORIF (R) femur. The patient has difficulty with functional mobility and ADL's. Rehab Potential: Good PT Short Term Goals Short Term Goals Time Frame: May 18, 2022 Roll Left & Right: 5 Sit to lyin Lying to sitting on side of be: 5 Sit to stand: 5 Chair/kjh-ii-ekvra transfer: 5 Toilet transfer: 5 Car transfer: 5 Walk 10 feet: 5 Walk 50 feet with two turns: 5 Walk 150 feet: 5 Walking 10ft on uneven surface: 5 1 step (curb): 5 4 steps: 5 12 steps: 5 PT [employer] Pcb Draftsman Goals Alf Goals PT [employer] Pcb Draftsman Goals Time Frame: May 21, 2022 Roll Left & Right (QC): 6 Sit to Lying (QC): 6 Lying-Sitting on Side/Bed(QC): 6 Sit to Stand (QC): 6 Chair/Yfu-iw-Yljwy Xfer(QC): 6 Toilet Transfer (QC): 6 Car Transfer (QC): 6 Does the Patient Walk: Yes Walk 10 feet (QC): 6 Walk 50ft with 2 Turns (QC): 6 Walk 150 ft (QC): 6 Walking 10ft on Uneven Surface: 6 1 Step (curb) (QC): 6 4 Steps (QC): 6 12 Steps (QC): 6 Picking up an Object (QC): 6 PT Plan Problem List Problem List: Activity Tolerance, Functional Strength, Safety, Balance, Gait, Transfer, Bed Mobility, ROM Treatment/Plan Treatment Plan: Continue Plan of Care Treatment Plan: Bed Mobility, Education, Functional Activity Jus, Functional Strength, Group Therapy, Gait, Safety, Therapeutic Exercise, Transfers Treatment Duration: May 21, 2022 Frequency: 11 times per week Estimated Hrs Per Day: 1 hour per day Time Time In: 909 Time Out: 929 DATE: May 14, 2022 Total Billed Treatment Time: 20 Total Billed Treatment 1, EV Low Complexity, FA x 10' HARPREET GAINES PT May 14, 2022 09:31
--- NOTE | 2022-05-14 12:27 | Progress Note - Hospitalist ---
Subjective HPI/CC On Admission Date Seen by Provider: May 14, 2022 Patient is a 66-year-old male who presented to the emergency department due to a fall and hip injury. 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 Imaging revealed a right hip fracture. He was admitted to the orthopedic surgery service for operative repair. I am consulted for medical management. He denies any complaints at this time and states his pain is well controlled. He is unsure when he will go to surgery but has already seen the surgeon and reports that it will be sometime today. Subjective/Events-last exam Pt reports doing well. Pain presented but well controlled. Sister at bedside and hopeful for DC to IRF if able. Objective Exam Vital Signs Vital Signs Date Time Temp Pulse Resp B/P (MAP) Pulse Ox O2 Delivery O2 Flow Rate FiO2 05/14/22 08:22 37.3 85 18 134/74 (94) 96 Room Air 05/13/22 16:05 2.00 Capillary Refill : Less Than 3 Seconds General Appearance: No Apparent Distress, Chronically ill Respiratory: Lungs Clear Cardiovascular: Regular Rate, Rhythm Neurologic/Psychiatric: Alert, Oriented x3 Results/Procedures Lab Laboratory Tests 05/14/22 05:17 Patient resulted labs reviewed. Imaging: Reviewed Imaging Report Assessment/Plan Assessment and Plan Assess & Plan/Chief Complaint Right hip fracture Management per primary Pain regimen POD#1 Bowel regimen PT/OT following surgery IRF eval pending how PT goes Presumed schizophrenia Maintained on fluphenazine DVT ppx: Lovenox Diagnosis/Problems Diagnosis/Problems (1) Intertrochanteric fracture of right hip Status: Acute Qualifiers: Encounter type: initial encounter Fracture type: closed Fracture alignment: displaced Qualified Codes: S72.141A - Displaced intertrochanteric fracture of right femur, initial encounter for closed fracture AMEE LEO MD May 14, 2022 12:27 pm
[2022-05-14] MEDS: BENZTROPINE MESYLATE 1 MG (COGENTIN) TAB PO SCH (20:50)
[2022-05-14] MEDS ORDERED: NON-FORMULARY MEDICATION 1 EA EA (Benztropine Mesylate 2 MG) PO SCH (21:00)
[2022-05-15 04:12] VITALS: BP 130/73
[2022-05-15 05:52] LABS: HEMOGLOBIN 9.3 g/dL (13.3-17.7)
--- NOTE | 2022-05-15 06:29 | Progress Note ---
Standard Progress Note Progress Notes/Assess & Plan Date Seen by a Provider: May 15, 2022 Time Seen by a Provider: 06:28 Progress/Assessment & Plan no complaints Vital Signs Date Time Temp Pulse Resp B/P (MAP) Pulse Ox O2 Delivery O2 Flow Rate FiO2 05/14/22 08:22 37.3 85 18 134/74 (94) 96 Room Air 05/14/22 03:23 37.4 90 16 130/64 (86) 94 Room Air 05/14/22 00:00 37.2 86 16 123/64 (83) 94 Room Air 05/13/22 20:00 Room Air 05/13/22 19:25 36.8 93 18 136/77 (96) 92 Room Air 05/13/22 16:15 Room Air 05/13/22 16:10 37.0 16 118/79 (92) 94 Room Air 05/13/22 16:05 OxyMask 2.00 05/13/22 16:00 37.1 93 18 125/73 (90) 93 Room Air 05/13/22 16:00 15 135/79 (97) 99 OxyMask 3.00 05/13/22 15:50 15 122/80 (94) 98 OxyMask 6.00 05/13/22 15:50 OxyMask 3.00 05/13/22 15:40 16 120/78 (92) 98 OxyMask 6.00 05/13/22 15:32 36.7 16 119/77 (91) 98 OxyMask 6.00 05/13/22 15:32 OxyMask 6.00 05/13/22 11:55 37.5 91 19 125/74 (91) 92 Room Air I & O 05/14/22 07:00 Intake Total 2150 ml Output Total 2100 ml Balance 50 ml Laboratory Tests Test 05/14/22 05:17 Range/Units Hemoglobin 9.4 L 13.3-17.7 g/dL Hematocrit 28 L 40-54 % R hip dressing intact intact DF and PF of toes and ankle sensation intact throughout equal pulses s/p R hip IM ash PT/OT DC [place] heplock Final Diagnosis no complaints Laboratory Tests Test 05/15/22 05:05 Range/Units Hemoglobin 9.3 L 13.3-17.7 g/dL Hematocrit 28 L 40-54 % Vital Signs Date Time Temp Pulse Resp B/P (MAP) Pulse Ox O2 Delivery O2 Flow Rate FiO2 05/15/22 04:12 37.2 97 18 130/73 (92) 94 Room Air 05/15/22 00:25 37.8 05/14/22 23:40 37.9 101 18 128/63 (84) 93 Room Air 05/14/22 20:55 95 Room Air 05/14/22 19:21 37.5 108 18 127/75 (92) 95 Room Air 05/14/22 15:33 37.2 108 18 117/68 (84) 95 Room Air 05/14/22 15:26 Room Air 0.00 05/14/22 12:55 37.2 106 18 116/70 (85) 95 Room Air 05/14/22 08:22 37.3 85 18 134/74 (94) 96 Room Air 05/14/22 08:00 Room Air I & O 05/15/22 07:00 Intake Total 4150 ml Output Total 2925 ml Balance 1225 ml R hip incisions clean and dry no calf tenderness s/p R hip IM ash mobilize IRMA HOLDEN MD May 15, 2022 06:29
[2022-05-15 07:37] VITALS: BP 142/79
[2022-05-15] MEDS: BENZTROPINE MESYLATE 1 MG (COGENTIN) TAB PO SCH ×2 (08:42→20:23)
[2022-05-15] MEDS: ENOXAPARIN 40 MG/0.4 ML (LOVENOX) SYR SC SCH (08:42)
--- NOTE | 2022-05-15 09:16 | Physical Therapy Daily Note ---
PT Daily Note-Current Subjective States that he is doing okay. Pain Section J - Health Conditions 1. Rarely or not at all 2. Occasionally 3. Frequently 4. Almost constantly 8. Unable to answer Pain Effect on Sleep: 3 Pain Interference with Therapy: 3 Pain Interference w/Day-to-Day: 3 Transfers SCALE: Activities may be completed with or without assistive devices. 9-Chocnyghtg-ktzecps completes the activity by him/herself with no assistance from a helper. 5-Set-up or Clean-up Assistance-helper sets up or cleans up; patient completes activity. [place] assists only prior to or following the activity. 4-Supervision or Touching Assistance-helper provides verbal cues and/or touching/steadying and/or contact guard assistance as patient completes activity. Assistance may be provided throughout the activity or intermittently. 3-Partial/Moderate Assistance-helper does LESS THAN HALF the effort. [place] lifts, holds or supports trunk or limbs, but provides less than half the effort. 2-Substantial/Maximal Assistance-helper does MORE THAN HALF the effort. [place] lifts or holds trunk or limbs and provides more than half the effort. 2-Aaxngphck-itbbkp does ALL the effort. Patient does none of the effort to complete the activity. Or, the assistance of 2 or more helpers is required for the patient to complete the activity. If activity was not attempted, code reason: 7-Patient Refused. 9-Not Applicable-not attempted and the patient did not perform the activity before the current illness, exacerbation or injury. 10-Not Attempted due to Environmental Limitations-(lack of equipment, weather restraints, etc.). 88-Not Attempted due to Medical Conditions or Safety Concerns. Sit to Stand (QC): 4 Weight Bearing Right Lower Extremity: Right Touch Toe Bearing Left Lower Extremity: Left Full Weight Bearing Gait Training Does the Patient Walk?: Yes Distance: 40 Walk 10 feet (QC): 5 Walk 50 ft with 2 Turns(QC): 88 Walk 150 ft (QC): 88 Gait Persons Needed: 1 Gait Assistive Device: FWW Exercises Seated Therapy Exercises: LE Protocol Seated Reps: 20 Assessment Current Status: Good Progress Patient appears to be maintaining TTWB status however he is fatiguing quickly during gait. PT Short Term Goals Short Term Goals Time Frame: May 18, 2022 Roll Left & Right: 5 Sit to lyin Lying to sitting on side of be: 5 Sit to stand: 5 Chair/usx-gb-pvojj transfer: 5 Toilet transfer: 5 Car transfer: 5 Walk 10 feet: 5 Walk 50 feet with two turns: 5 Walk 150 feet: 5 Walking 10ft on uneven surface: 5 1 step (curb): 5 4 steps: 5 12 steps: 5 PT Block Cleaner Goals Block Cleaner Goals PT Block Cleaner Goals Time Frame: May 21, 2022 Roll Left & Right (QC): 6 Sit to Lying (QC): 6 Lying-Sitting on Side/Bed(QC): 6 Sit to Stand (QC): 6 Chair/Pbh-op-Ywhym Xfer(QC): 6 Toilet Transfer (QC): 6 Car Transfer (QC): 6 Does the Patient Walk: Yes Walk 10 feet (QC): 6 Walk 50ft with 2 Turns (QC): 6 Walk 150 ft (QC): 6 Walking 10ft on Uneven Surface: 6 1 Step (curb) (QC): 6 4 Steps (QC): 6 12 Steps (QC): 6 Picking up an Object (QC): 6 PT Plan Treatment/Plan Treatment Plan: Continue Plan of Care Treatment Plan: Bed Mobility, Education, Functional Activity Jus, Functional Strength, Group Therapy, Gait, Safety, Therapeutic Exercise, Transfers Treatment Duration: May 21, 2022 Frequency: 11 times per week Estimated Hrs Per Day: 1 hour per day Time Time In: 0840 Time Out: 05 DATE: May 15, 2022 Total Billed Treatment Time: 25 Total Billed Treatment 1, GT x 15', EX x 10' HARPREET GAINES PT May 15, 2022 09:16
[2022-05-15] MEDS: HYDROcodone/APAP 7.5 MG/325 MG (LORTAB, LORCET PLUS) TABLET PO PRN (09:57)
[2022-05-15 11:36] VITALS: BP 128/70
[2022-05-15 15:07] VITALS: BP 138/71
[2022-05-15 19:23] VITALS: BP 116/71
[2022-05-15] MEDS: SENNA W/DOCUSATE (SENOKOT S) TABLET PO SCH (20:23)
[2022-05-15] MEDS: ONDANSETRON 4 MG/2 ML (SDV) Z0FRAN IV PRN (22:02)
[2022-05-15 23:32] VITALS: BP 123/70
[2022-05-16] VITALS (7 sets, daily range): BP systolic 114–122; BP diastolic 67–79
[2022-05-16] MEDS: PROMETHAZINE INJ 25 MG/ML (PHENERGAN) AMP IVP PRN ×2 (00:05→18:01)
--- NOTE | 2022-05-16 07:50 | Diagnostic Imaging Report ---
CLINICAL INDICATION: Patient with emesis and bloating. EXAM: X-ray abdomen supine views. COMPARISON: None. FINDINGS: Significantly gastric air distention seen. There is air seen within the colon. There is some air seen within small bowel. There is no intra-abdominal free air. Phleboliths seen in pelvis. Intramedullary ash affixing the comminuted fracture proximal right femur. There are degenerative spurs involving the spine with right curvature of the thoracolumbar region. IMPRESSION: 1: There is nonspecific significant air distention of the stomach. Gastric outlet obstruction may be considered. 2: There is no other significant acute abnormality. Dictated by: Dictated on workstation # [id number]
--- NOTE | 2022-05-16 08:21 | Progress Note ---
Standard Progress Note Progress Notes/Assess & Plan Date Seen by a Provider: May 16, 2022 Time Seen by a Provider: 08:20 Progress/Assessment & Plan no complaints Vital Signs Date Time Temp Pulse Resp B/P (MAP) Pulse Ox O2 Delivery O2 Flow Rate FiO2 05/14/22 08:22 37.3 85 18 134/74 (94) 96 Room Air 05/14/22 03:23 37.4 90 16 130/64 (86) 94 Room Air 05/14/22 00:00 37.2 86 16 123/64 (83) 94 Room Air 05/13/22 20:00 Room Air 05/13/22 19:25 36.8 93 18 136/77 (96) 92 Room Air 05/13/22 16:15 Room Air 05/13/22 16:10 37.0 16 118/79 (92) 94 Room Air 05/13/22 16:05 OxyMask 2.00 05/13/22 16:00 37.1 93 18 125/73 (90) 93 Room Air 05/13/22 16:00 15 135/79 (97) 99 OxyMask 3.00 05/13/22 15:50 15 122/80 (94) 98 OxyMask 6.00 05/13/22 15:50 OxyMask 3.00 05/13/22 15:40 16 120/78 (92) 98 OxyMask 6.00 05/13/22 15:32 36.7 16 119/77 (91) 98 OxyMask 6.00 05/13/22 15:32 OxyMask 6.00 05/13/22 11:55 37.5 91 19 125/74 (91) 92 Room Air I & O 05/14/22 07:00 Intake Total 2150 ml Output Total 2100 ml Balance 50 ml Laboratory Tests Test 05/14/22 05:17 Range/Units Hemoglobin 9.4 L 13.3-17.7 g/dL Hematocrit 28 L 40-54 % R hip dressing intact intact DF and PF of toes and ankle sensation intact throughout equal pulses s/p R hip IM ash PT/OT DC [place] heplock Final Diagnosis no complaints Vital Signs Date Time Temp Pulse Resp B/P (MAP) Pulse Ox O2 Delivery O2 Flow Rate FiO2 05/16/22 07:36 37.4 99 18 121/79 (93) 95 Room Air 05/16/22 03:54 37.3 105 18 114/73 (87) 94 Room Air 05/15/22 23:32 37.3 115 18 123/70 (87) 93 Room Air 05/15/22 20:25 97 Room Air 05/15/22 19:23 37.2 104 18 116/71 (86) 97 Room Air 05/15/22 15:07 37.3 100 18 138/71 (93) 96 Room Air 05/15/22 11:36 36.7 105 18 128/70 (89) 98 Room Air 05/15/22 10:08 Room Air I & O 05/16/22 07:00 Intake Total 3200 ml Output Total 4725 ml Balance -1525 ml Right hip incisions clean and dry no calf tenderness s/p R hip IM ash PT possible DC tomorrow if advances IRMA HOLDEN MD May 16, 2022 08:21
[2022-05-16] MEDS: BENZTROPINE MESYLATE 1 MG (COGENTIN) TAB PO SCH ×2 (09:27→20:00)
[2022-05-16] MEDS: ENOXAPARIN 40 MG/0.4 ML (LOVENOX) SYR SC SCH (09:27)
[2022-05-16] MEDS: SENNA W/DOCUSATE (SENOKOT S) TABLET PO SCH ×2 (09:27→20:00)
[2022-05-16] MEDS: HYDROcodone/APAP 7.5 MG/325 MG (LORTAB, LORCET PLUS) TABLET PO PRN ×2 (09:37→15:46)
--- NOTE | 2022-05-16 09:48 | Physical Therapy Daily Note ---
PT Daily Note-Current Subjective Patient agrees to PT. Pain Numeric Pain Scale: 5-Moderate Pain Location: Right Location Body Site: Hip Pain Description: Acute Section J - Health Conditions 1. Rarely or not at all 2. Occasionally 3. Frequently 4. Almost constantly 8. Unable to answer Pain Effect on Sleep: 2 Pain Interference with Therapy: 2 Pain Interference w/Day-to-Day: 2 Mental Status Patient Orientation: Person, Time, Situation Transfers SCALE: Activities may be completed with or without assistive devices. 0-Anwqrzzguk-htbxumk completes the activity by him/herself with no assistance from a helper. 5-Set-up or Clean-up Assistance-helper sets up or cleans up; patient completes activity. [place] assists only prior to or following the activity. 4-Supervision or Touching Assistance-helper provides verbal cues and/or touching/steadying and/or contact guard assistance as patient completes activity. Assistance may be provided throughout the activity or intermittently. 3-Partial/Moderate Assistance-helper does LESS THAN HALF the effort. [place] lifts, holds or supports trunk or limbs, but provides less than half the effort. 2-Substantial/Maximal Assistance-helper does MORE THAN HALF the effort. [place] lifts or holds trunk or limbs and provides more than half the effort. 2-Iezsphvtf-vsgufk does ALL the effort. Patient does none of the effort to co mplete the activity. Or, the assistance of 2 or more helpers is required for the patient to complete the activity. If activity was not attempted, code reason: 7-Patient Refused. 9-Not Applicable-not attempted and the patient did not perform the activity before the current illness, exacerbation or injury. 10-Not Attempted due to Environmental Limitations-(lack of equipment, weather restraints, etc.). 88-Not Attempted due to Medical Conditions or Safety Concerns. Lying to Sitting/Side of Bed(Q: 3 Sit to Stand (QC): 3 Chair/Huu-xc-Rejur Xfer(QC): 3 Weight Bearing Right Lower Extremity: Right Touch Toe Bearing Left Lower Extremity: Left Full Weight Bearing Gait Training Distance: 100' Walk 10 feet (QC): 3 Walk 50 ft with 2 Turns(QC): 3 Exercises Supine Ex: Ankle pumps, Quad Set, Heel Slides, Straight leg raise Supine Reps: 15 (AAROM right LE) Seated Therapy Exercises: Long arc quads Seated Reps: 15 Assessment Patient is able to comply with TTWB right LE. Patient progressing with treatment plan and would benefit from continued therapy to ensure safe return to home alone. PT Short Term Goals Short Term Goals Time Frame: May 18, 2022 Roll Left & Right: 5 Sit to lyin Lying to sitting on side of be: 5 Sit to stand: 5 Chair/tgy-yk-wkgkc transfer: 5 Toilet transfer: 5 Car transfer: 5 Walk 10 feet: 5 Walk 50 feet with two turns: 5 Walk 150 feet: 5 Walking 10ft on uneven surface: 5 1 step (curb): 5 4 steps: 5 12 steps: 5 PT Fluorescent Lighting Model Maker Goals Mcfp Goals PT Mcfp Goals Time Frame: May 21, 2022 Roll Left & Right (QC): 6 Sit to Lying (QC): 6 Lying-Sitting on Side/Bed(QC): 6 Sit to Stand (QC): 6 Chair/Eva-qx-Kcmpa Xfer(QC): 6 Toilet Transfer (QC): 6 Car Transfer (QC): 6 Does the Patient Walk: Yes Walk 10 feet (QC): 6 Walk 50ft with 2 Turns (QC): 6 Walk 150 ft (QC): 6 Walking 10ft on Uneven Surface: 6 1 Step (curb) (QC): 6 4 Steps (QC): 6 12 Steps (QC): 6 Picking up an Object (QC): 6 PT Plan Treatment/Plan Treatment Plan: Continue Plan of Care Treatment Plan: Bed Mobility, Education, Functional Activity Jus, Functional Strength, Group Therapy, Gait, Safety, Therapeutic Exercise, Transfers Treatment Duration: May 21, 2022 Frequency: 11 times per week Estimated Hrs Per Day: 1 hour per day Time Time In: 901 Time Out: 924 DATE: May 16, 2022 Total Billed Treatment Time: 23 Total Billed Treatment 1 visit EX 13 min GT10 min JAVIER SUTHERLAND PT May 16, 2022 09:48
--- NOTE | 2022-05-16 13:22 | Physical Therapy Daily Note ---
PT Daily Note-Current Subjective Pt found seated in recliner upon entry. Agreed to PT. Reports that his R hip is sore today. Pain has not changed since morning PT Tx. Pain Section J - Health Conditions 1. Rarely or not at all 2. Occasionally 3. Frequently 4. Almost constantly 8. Unable to answer Pain Effect on Sleep: 2 Pain Interference with Therapy: 2 Pain Interference w/Day-to-Day: 2 Mental Status Patient Orientation: Normal For Age Transfers SCALE: Activities may be completed with or without assistive devices. 8-Jtpxywahho-vghlfyj completes the activity by him/herself with no assistance from a helper. 5-Set-up or Clean-up Assistance-helper sets up or cleans up; patient completes activity. [place] assists only prior to or following the activity. 4-Supervision or Touching Assistance-helper provides verbal cues and/or touching/steadying and/or contact guard assistance as patient completes activity. Assistance may be provided throughout the activity or intermittently. 3-Partial/Moderate Assistance-helper does LESS THAN HALF the effort. [place] lifts, holds or supports trunk or limbs, but provides less than half the effort. 2-Substantial/Maximal Assistance-helper does MORE THAN HALF the effort. [place] lifts or holds trunk or limbs and provides more than half the effort. 4-Pfdudsaju-lqzvzq does ALL the effort. Patient does none of the effort to complete the activity. Or, the assistance of 2 or more helpers is required for the patient to complete the activity. If activity was not attempted, code reason: 7-Patient Refused. 9-Not Applicable-not attempted and the patient did not perform the activity before the current illness, exacerbation or injury. 10-Not Attempted due to Environmental Limitations-(lack of equipment, weather restraints, etc.). 88-Not Attempted due to Medical Conditions or Safety Concerns. Sit to Stand (QC): 3 Chair/Bbe-pz-Iizgn Xfer(QC): 3 Pt MIN assist /c all trfs. Weight Bearing Right Lower Extremity: Right Touch Toe Bearing Left Lower Extremity: Left Full Weight Bearing Gait Training Does the Patient Walk?: Yes Distance: 50 Walk 10 feet (QC): 3 Walk 50 ft with 2 Turns(QC): 3 Gait Persons Needed: 1 Gait Assistive Device: FWW Pt MIN assist /c gait training. Amb. 50ft total /c FWW. Assessment Current Status: Fair Progress Pt has fair tolerance to Tx this visit. Amb. very slowly d/t fatigue and R hip soreness. Required a standing RB during gait training. Continue to progress pt as tolerated per POC to increase functional ability. PT Short Term Goals Short Term Goals Time Frame: May 18, 2022 Roll Left & Right: 5 Sit to lyin Lying to sitting on side of be: 5 Sit to stand: 5 Chair/uzu-in-rmoid transfer: 5 Toilet transfer: 5 Car transfer: 5 Walk 10 feet: 5 Walk 50 feet with two turns: 5 Walk 150 feet: 5 Walking 10ft on uneven surface: 5 1 step (curb): 5 4 steps: 5 12 steps: 5 PT Vrt Mechanic Goals Correction Goals PT Vrt Mechanic Goals Time Frame: May 21, 2022 Roll Left & Right (QC): 6 Sit to Lying (QC): 6 Lying-Sitting on Side/Bed(QC): 6 Sit to Stand (QC): 6 Chair/Wpb-fl-Kcwjm Xfer(QC): 6 Toilet Transfer (QC): 6 Car Transfer (QC): 6 Does the Patient Walk: Yes Walk 10 feet (QC): 6 Walk 50ft with 2 Turns (QC): 6 Walk 150 ft (QC): 6 Walking 10ft on Uneven Surface: 6 1 Step (curb) (QC): 6 4 Steps (QC): 6 12 Steps (QC): 6 Picking up an Object (QC): 6 PT Plan Treatment/Plan Treatment Plan: Continue Plan of Care Treatment Plan: Bed Mobility, Education, Functional Activity Jus, Functional Strength, Group Therapy, Gait, Safety, Therapeutic Exercise, Transfers Treatment Duration: May 21, 2022 Frequency: 11 times per week Estimated Hrs Per Day: 1 hour per day Time Time In: 1300 Time Out: 1316 DATE: May 16, 2022 Total Billed Treatment Time: 16 Total Billed Treatment 1 visit GT 1x YOHANNES JUAREZ FLASK HANDLER May 16, 2022 13:22
--- NOTE | 2022-05-16 13:35 | Occupational Therapy Eval ---
OT Evaluation-General/PLF Medical Diagnosis Admission Date May 12, 2022 at 17:20 Medical Diagnosis: (R) femur fracture Onset Date: May 13, 2022 Therapy Diagnosis Therapy Diagnosis: reduced adl status Precautions Precautions/Isolations: Fall Prevention, Standard Precautions Weight Bear Status Weight Bearing Restriction: Touch Toe Bearing Location Restriction: R LE Referral Physician: Yesenia Referral Reason: Evaluation/Treatment Medical History Current History Pt presents to hospital after fall at work resulting in R hip fx. s/p ORIF. Per patient, he lives alone in a ground level apartment. He was indep with adls and iadls except he does not drive. Per patient he walks ~3 miles to work everyday (gets up at 1:45 in the morning). Pt was not using any AD at baseline. 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 1-Nhcytgxqxd-drtsgkp completes the activity by him/herself with no assistance from a helper. 5-Set-up or Clean-up Assistance-helper sets up or cleans up; patient completes activity. [place] assists only prior to or following the activity. 4-Supervision or Touching Assistance-helper provides verbal cues and/or t ouching/steadying and/or contact guard assistance as patient completes activity. Assistance may be provided throughout the activity or intermittently. 3-Partial/Moderate Assistance-helper does LESS THAN HALF the effort. [place] lifts, holds or supports trunk or limbs, but provides less than half the effort. 2-Substantial/Maximal Assistance-helper does MORE THAN HALF the effort. [place] lifts or holds trunk or limbs and provides more than half the effort. 2-Svgnlnoop-rdbbtj does ALL the effort. Patient does none of the effort to complete the activity. Or, the assistance of 2 or more helpers is required for the patient to complete the activity. If activity was not attempted, code reason: 7-Patient Refused. 9-Not Applicable-not attempted and the patient did not perform the activity before the current illness, exacerbation or injury. 10-Not Attempted due to Environmental Limitations-(lack of equipment, weather restraints, etc.). 88-Not Attempted due to Medical Conditions or Safety Concerns. Self Care: Independent Functional Cognition: Independent DME/Equipment: Tub/Shower Drive Self: No OT Current Status Subjective Pt reports pain in R hip as 10/10 Appearance Pt returned to supine in bed, all needs within reach at OT departure. Mental Status/Objective Patient Orientation: Person, Confused, Place, Situation Attachments: IV Current Glasses/Contacts: Yes Hearing Aids: No Dentures/Partials: No Hand Dominance: Right Upper Extremity ROM WFL Upper Extremity Strength 4/5 grossly ADL-Treatment Lower Body Dressing (QC): 2 On/Off Footwear (QC): 1 Pt ambulating back to bed with physical therapy at OT arrival. Appears to be placing some weight through toes. Education on TTWB and using R foot more as "steadying" when standing as well as weight-bearing through UE's during swing- through phase of LLE. Good sitting balance at EOB. Pt unable to reach feet for LB dressing/footwear/bathing tasks. Education on patient service specialist and sock aid. Post instruction, min a still needed to don sock. Min-mod a to stand, assist to shift weight anteriorly. Heavy reliance on BUE support, thus anticipate assist required to manage clothing over hips. Mod a to return to supine. Education OT Patient Education: Correct positioning, Energy conservation, Modified ADL techniques, Purpose of tx/functional activities, Reviewed precautions, Rehab process, Safety issues, Transfer techniques, Use of adapted equipment Teaching Recipient: Patient Teaching Methods: Demonstration, Discussion Response to Teaching: Verbalize Understanding, Reinforcement Needed OT Longterm Goals Religious Assistant Goals Time Frame: May 28, 2022 Eating (QC): 6 Oral Hygiene (QC): 6 Toileting Hygiene (QC): 6 Shower/Bathe Self (QC): 4 Upper Body Dressing (QC): 5 Lower Body Dressing (QC): 4 On/Off Footwear (QC): 5 Additional Goals: 1-Demonstrate ADL Tasks, 2-Verbalize Understanding, 3-ImproveStrength/Jus 1=Demonstrate adherence to instructed precautions during ADL tasks. 2=Patient will verbalize/demonstrate understanding of assistive devices/modifications for ADL. 3=Patient will improve strength/tolerance for activity to enable patient to perform ADL's. OT Education/Plan Problem List/Assessment Assessment: Decreased Activ Tolerance, Decreased Safety Aware, Impaired Bed Mobility, Impaired Cognition, Impaired Funct Balance, Impaired I ADL's, Impaired Self-Care Skills Discharge Recommendations Plan/Recommendations: Continue POC Therapy Discharge Recommendati: Post Acute OT Treatment Plan/Plan of Care Treatment,Training & Education: Yes Patient would benefit from OT for education, treatment and training to promote independence in ADL's, mobility, safety and/or upper extremity function for ADL's. Plan of Care: ADL Retraining, Cognitive Retraining, Functional Mobility, Group Exercise/Act as Ind, UE Funct Exercise/Act Treatment Duration: May 28, 2022 Frequency: 3 times per week (3-5x/week ) Estimated Hrs Per Day: .25 hour per day Rehab Potential: Fair Time Start Time: 13:15 Stop Time: 13:26 DATE: May 16, 2022 Total Time Billed (hr/min): 11 Billed Treatment Time 1 visit Marina Blood OT May 16, 2022 13:35
[2022-05-16] MEDS: ONDANSETRON 4 MG/2 ML (SDV) Z0FRAN IV PRN (16:48)
[2022-05-16 18:22] LABS: OCCULT BLOOD,GASTRIC FLUID POSITIVE (NEGATIVE)
--- NOTE | 2022-05-16 18:48 | Progress Note - Hospitalist ---
Subjective HPI/CC On Admission Date Seen by Provider: May 16, 2022 Time Seen by Provider: 12:15 Patient is a 66-year-old male who presented to the emergency department due to a fall and hip injury. 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 Imaging revealed a right hip fracture. He was admitted to the orthopedic surgery service for operative repair. I am consulted for medical management. He denies any complaints at this time and states his pain is well controlled. He is unsure when he will go to surgery but has already seen the surgeon and reports that it will be sometime today. Subjective/Events-last exam He is doing well today. He had some nausea and vomiting overnight. He did well with breakfast this morning. He has no complaints. Objective Exam Vital Signs Vital Signs Date Time Temp Pulse Resp B/P (MAP) Pulse Ox O2 Delivery O2 Flow Rate FiO2 05/16/22 15:30 36.6 96 20 115/73 (87) 94 Room Air 05/14/22 15:26 0.00 Capillary Refill : Less Than 3 Seconds General Appearance: No Apparent Distress, WD/WN Respiratory: Lungs Clear, No Respiratory Distress Cardiovascular: Regular Rate, Rhythm, No Murmur Gastrointestinal: Normal Bowel Sounds, Soft Extremity: Normal Inspection, No Pedal Edema Neurologic/Psychiatric: Alert, Normal Mood/Affect Skin: Normal Color, Warm/Dry Results/Procedures Lab Patient resulted labs reviewed. Imaging: Reviewed Imaging Report Assessment/Plan Assessment and Plan Assess & Plan/Chief Complaint Right hip fracture Management per Ortho Pain regimen Bowel regimen PT/OT IRU evaluation, accepted, awaiting insurance approval Anemia Nausea and vomiting Upper GI bleeding Possibly due to Cecille-Chung tear Hgb stable, monitor Add Protonix Antiemetics as needed Presumed schizophrenia Maintained on fluphenazine DVT ppx: Lovenox Diagnosis/Problems Diagnosis/Problems (1) Intertrochanteric fracture of right hip Status: Acute Qualifiers: Encounter type: initial encounter Fracture type: closed Fracture alignment: displaced Qualified Codes: S72.141A - Displaced intertrochanteric fracture of right femur, initial encounter for closed fracture (2) Anemia Status: Acute (3) Nausea & vomiting Status: Acute (4) GI bleed Status: Acute MELY JENKINS MD May 16, 2022 18:48
[2022-05-16] MEDS: PANTOPRAZOLE 40 MG (PROTONIX) VIAL IV SCH (20:00)
[2022-05-17] MEDS: ONDANSETRON 4 MG/2 ML (SDV) Z0FRAN IV PRN ×2 (00:28→05:30)
[2022-05-17] MEDS: PROMETHAZINE INJ 25 MG/ML (PHENERGAN) AMP IVP PRN ×2 (03:30→10:55)
[2022-05-17 03:57] VITALS: BP 119/74
[2022-05-17 06:08] LABS: CALCIUM 8.5 MG/DL (8.5-10.1)
[2022-05-17 06:13] LABS: CREATININE SERUM 0.82 MG/DL (0.60-1.30)
[2022-05-17 06:35] LABS: BASOPHILS # (AUTO) 0.1 10^3/uL (0.0-0.1); BASOPHILS % (AUTO) 0 % (0-10); EOSINOPHILS # (AUTO) 0.1 10^3/uL (0.0-0.3); EOSINOPHILS % (AUTO) 1 % (0-10); HEMATOCRIT 30 % (40-54); LYMPHOCYTES # (AUTO) 1.1 10^3/uL (1.0-4.0); LYMPHOCYTES % (AUTO) 8 % (12-44); MEAN CORPUSCULAR HEMOGLOBIN 31 pg (25-34); MEAN CORPUSCULAR HGB CONC 33 g/dL (32-36); MEAN CORPUSCULAR VOLUME 93 fL (80-99); MEAN PLATELET VOLUME 9.5 fL (9.0-12.2); MONOCYTES # (AUTO) 1.3 10^3/uL (0.0-1.0); MONOCYTES % (AUTO) 9 % (0-12); NEUTROPHILS # (AUTO) 10.6 10^3/uL (1.8-7.8); NEUTROPHILS % (AUTO) 80 % (42-75); PLATELET COUNT 354 10^3/uL (130-400); WHITE BLOOD COUNT 13.3 10^3/uL (4.3-11.0)
--- NOTE | 2022-05-17 06:54 | Progress Note ---
Standard Progress Note Progress Notes/Assess & Plan Date Seen by a Provider: May 17, 2022 Time Seen by a Provider: 06:52 Progress/Assessment & Plan no complaints Vital Signs Date Time Temp Pulse Resp B/P (MAP) Pulse Ox O2 Delivery O2 Flow Rate FiO2 05/14/22 08:22 37.3 85 18 134/74 (94) 96 Room Air 05/14/22 03:23 37.4 90 16 130/64 (86) 94 Room Air 05/14/22 00:00 37.2 86 16 123/64 (83) 94 Room Air 05/13/22 20:00 Room Air 05/13/22 19:25 36.8 93 18 136/77 (96) 92 Room Air 05/13/22 16:15 Room Air 05/13/22 16:10 37.0 16 118/79 (92) 94 Room Air 05/13/22 16:05 OxyMask 2.00 05/13/22 16:00 37.1 93 18 125/73 (90) 93 Room Air 05/13/22 16:00 15 135/79 (97) 99 OxyMask 3.00 05/13/22 15:50 15 122/80 (94) 98 OxyMask 6.00 05/13/22 15:50 OxyMask 3.00 05/13/22 15:40 16 120/78 (92) 98 OxyMask 6.00 05/13/22 15:32 36.7 16 119/77 (91) 98 OxyMask 6.00 05/13/22 15:32 OxyMask 6.00 05/13/22 11:55 37.5 91 19 125/74 (91) 92 Room Air I & O 05/14/22 07:00 Intake Total 2150 ml Output Total 2100 ml Balance 50 ml Laboratory Tests Test 05/14/22 05:17 Range/Units Hemoglobin 9.4 L 13.3-17.7 g/dL Hematocrit 28 L 40-54 % R hip dressing intact intact DF and PF of toes and ankle sensation intact throughout equal pulses s/p R hip IM ash PT/OT DC Bee hicks Final Diagnosis vomited this AM reports that he is passing gas Laboratory Tests Test 05/16/22 18:00 05/17/22 05:38 Range/Units Gastric Fluid Occult Blood POSITIVE H NEGATIVE White Blood Count 13.3 H 4.3-11.0 10^3/uL Red Blood Count 3.26 L 4.30-5.52 10^6/uL Hemoglobin 10.0 L 13.3-17.7 g/dL Hematocrit 30 L 40-54 % Mean Corpuscular Volume 93 80-99 fL Mean Corpuscular Hemoglobin 31 25-34 pg Mean Corpuscular Hemoglobin Concent 33 32-36 g/dL Red Cell Distribution Width 12.1 10.0-14.5 % Platelet Count 354 130-400 10^3/uL Mean Platelet Volume 9.5 9.0-12.2 fL Immature Granulocyte % (Auto) 1 % Neutrophils (%) (Auto) 80 H 42-75 % Lymphocytes (%) (Auto) 8 L 12-44 % Monocytes (%) (Auto) 9 0-12 % Eosinophils (%) (Auto) 1 0-10 % Basophils (%) (Auto) 0 0-10 % Neutrophils # (Auto) 10.6 H 1.8-7.8 10^3/uL Lymphocytes # (Auto) 1.1 1.0-4.0 10^3/uL Monocytes # (Auto) 1.3 H 0.0-1.0 10^3/uL Eosinophils # (Auto) 0.1 0.0-0.3 10^3/uL Basophils # (Auto) 0.1 0.0-0.1 10^3/uL Immature Granulocyte # (Auto) 0.2 H 0.0-0.1 10^3/uL Sodium Level 135 135-145 MMOL/L Potassium Level 4.0 3.6-5.0 MMOL/L Chloride Level 103 98-107 MMOL/L Carbon Dioxide Level 21 21-32 MMOL/L Anion Gap 11 5-14 MMOL/L Blood Urea Nitrogen 16 7-18 MG/DL Creatinine 0.82 0.60-1.30 MG/DL Estimat Glomerular Filtration Rate 97 BUN/Creatinine Ratio 20 Glucose Level 143 H 70-105 MG/DL Calcium Level 8.5 8.5-10.1 MG/DL Vital Signs Date Time Temp Pulse Resp B/P (MAP) Pulse Ox O2 Delivery O2 Flow Rate FiO2 05/17/22 03:57 37.3 104 20 119/74 (89) 92 Room Air 05/16/22 23:45 37.2 109 19 119/67 (84) 94 Room Air 05/16/22 20:07 94 Room Air 05/16/22 19:33 37.4 110 18 122/76 (91) 94 Room Air 05/16/22 18:57 37.4 110 18 122/76 (91) 94 Room Air 05/16/22 15:30 36.6 96 20 115/73 (87) 94 Room Air 05/16/22 11:42 36.7 103 18 120/69 (86) 96 Room Air 05/16/22 09:55 Room Air 05/16/22 07:36 37.4 99 18 121/79 (93) 95 Room Air I & O0 05/17/22 07:00 Intake Total 2280 ml Output Total 2900 ml Balance -620 ml r hip incisons clean and dry no calf tenderness neg Lila's s/p R hip IM ash with post op ileus symptoms PT/OT as tolerated appreciate hospitalist assistance to IRU when able IRMA HOLDEN MD May 17, 2022 06:54
[2022-05-17 08:02] VITALS: BP 124/63
[2022-05-17] MEDS: PANTOPRAZOLE 40 MG (PROTONIX) VIAL IV SCH ×2 (08:21→20:06)
[2022-05-17] MEDS: ENOXAPARIN 40 MG/0.4 ML (LOVENOX) SYR SC SCH (08:21)
[2022-05-17] MEDS: SENNA W/DOCUSATE (SENOKOT S) TABLET PO SCH ×2 (08:21→20:05)
[2022-05-17] MEDS: BENZTROPINE MESYLATE 1 MG (COGENTIN) TAB PO SCH ×2 (08:21→20:05)
--- NOTE | 2022-05-17 09:49 | Physical Therapy Daily Note ---
PT Daily Note-Current Subjective Patient c/o nausea. RN is aware. Pain Section J - Health Conditions 1. Rarely or not at all 2. Occasionally 3. Frequently 4. Almost constantly 8. Unable to answer Pain Effect on Sleep: 2 Pain Interference with Therapy: 2 Pain Interference w/Day-to-Day: 2 Mental Status Patient Orientation: Normal For Age Transfers SCALE: Activities may be completed with or without assistive devices. 1-Rakjzyczmj-ygpvezb completes the activity by him/herself with no assistance from a helper. 5-Set-up or Clean-up Assistance-helper sets up or cleans up; patient completes activity. [place] assists only prior to or following the activity. 4-Supervision or Touching Assistance-helper provides verbal cues and/or touching/steadying and/or contact guard assistance as patient completes activity. Assistance may be provided throughout the activity or intermittently. 3-Partial/Moderate Assistance-helper does LESS THAN HALF the effort. [place] lifts, holds or supports trunk or limbs, but provides less than half the effort. 2-Substantial/Maximal Assistance-helper does MORE THAN HALF the effort. [place] lifts or holds trunk or limbs and provides more than half the effort. 1-Bcnomxwby-nedhji does ALL the effort. Patient does none of the effort to complete the activity. Or, the assistance of 2 or more helpers is required for the patient to complete the activity. If activity was not attempted, code reason: 7-Patient Refused. 9-Not Applicable-not attempted and the patient did not perform the activity before the current illness, exacerbation or injury. 10-Not Attempted due to Environmental Limitations-(lack of equipment, weather restraints, etc.). 88-Not Attempted due to Medical Conditions or Safety Concerns. Lying to Sitting/Side of Bed(Q: 3 Sit to Stand (QC): 3 Chair/Kdl-mg-Jovos Xfer(QC): 3 Weight Bearing Right Lower Extremity: Right Touch Toe Bearing Left Lower Extremity: Left Full Weight Bearing Gait Training Distance: 125' Walk 10 feet (QC): 4 Walk 50 ft with 2 Turns(QC): 4 Gait Assistive Device: FWW patient able to maintain TTWB right LE/slow, functional gait sequence Exercises Supine Ex: Ankle pumps, Quad Set, Heel Slides, Straight leg raise Supine Reps: 15 (AAROM) Seated Therapy Exercises: Long arc quads Seated Reps: 15 (AAROM) Assessment Patient progressing very slowly with treatment plan. Patient is currently limited by nausea and vomiting. PT to increase activity as tolerated by patient. PT Short Term Goals Short Term Goals Time Frame: May 18, 2022 Roll Left & Right: 5 Sit to lyin Lying to sitting on side of be: 5 Sit to stand: 5 Chair/esa-eo-eiham transfer: 5 Toilet transfer: 5 Car transfer: 5 Walk 10 feet: 5 Walk 50 feet with two turns: 5 Walk 150 feet: 5 Walking 10ft on uneven surface: 5 1 step (curb): 5 4 steps: 5 12 steps: 5 PT Airline Flight Attendant Goals Airline Flight Attendant Goals PT Airline Flight Attendant Goals Time Frame: May 21, 2022 Roll Left & Right (QC): 6 Sit to Lying (QC): 6 Lying-Sitting on Side/Bed(QC): 6 Sit to Stand (QC): 6 Chair/Ddj-nj-Wlfgd Xfer(QC): 6 Toilet Transfer (QC): 6 Car Transfer (QC): 6 Does the Patient Walk: Yes Walk 10 feet (QC): 6 Walk 50ft with 2 Turns (QC): 6 Walk 150 ft (QC): 6 Walking 10ft on Uneven Surface: 6 1 Step (curb) (QC): 6 4 Steps (QC): 6 12 Steps (QC): 6 Picking up an Object (QC): 6 PT Plan Treatment/Plan Treatment Plan: Continue Plan of Care Treatment Plan: Bed Mobility, Education, Functional Activity Jus, Functional Strength, Group Therapy, Gait, Safety, Therapeutic Exercise, Transfers Treatment Duration: May 21, 2022 Frequency: 11 times per week Estimated Hrs Per Day: 1 hour per day Time Time In: 735 Time Out: 758 DATE: May 17, 2022 Total Billed Treatment Time: 23 Total Billed Treatment 1 visit EX 10 min GT 13 min JAVIER SUTHERLAND PT May 17, 2022 09:49
--- NOTE | 2022-05-17 10:22 | Occupational Ther Daily Note ---
OT Current Status-Daily Note Subjective Pt in bed, c/o nausea. Pt declines OOB activities and getting dressed at this time due to nausea. Agreeable to OT Tx at bed level. ADL-Treatment Therapy Code Descriptions/Definitions Functional [place] Measure: 0=Not Assessed/NA 4=Minimal Assistance 1=Total Assistance 5=Supervision or Setup 2=Maximal Assistance 6=Modified [place] 3=Moderate Assistance 7=Complete IndependenceSCALE: Activities may be completed with or without assistive devices. 0-Pbgqwhpmyr-wvnvhgi completes the activity by him/herself with no assistance from a helper. 5-Set-up or Clean-up Assistance-helper sets up or cleans up; patient completes activity. [place] assists only prior to or following the activity. 4-Supervision or Touching Assistance-helper provides verbal cues and/or touching/steadying and/or contact guard assistance as patient completes activity. Assistance may be provided throughout the activity or intermittently. 3-Partial/Moderate Assistance-helper does LESS THAN HALF the effort. [place] lifts, holds or supports trunk or limbs, but provides less than half the effort. 2-Substantial/Maximal Assistance-helper does MORE THAN HALF the effort. [place] lifts or holds trunk or limbs and provides more than half the effort. 4-Iotjmjoyb-vxllwb does ALL the effort. Patient does none of the effort to complete the activity. Or, the assistance of 2 or more helpers is required for the patient to complete the activity. If activity was not attempted, code reason: 7-Patient Refused. 9-Not Applicable-not attempted and the patient did not perform the activity before the current illness, exacerbation or injury. 10-Not Attempted due to Environmental Limitations-(lack of equipment, weather restraints, etc.). 88-Not Attempted due to Medical Conditions or Safety Concerns. Eating (QC): 7 (pt declined due to nausea) Oral Hygiene (QC): 4 (VCs for sequencing) Other Treatment Pt in bed, completed oral care and face washing at bed level. Pt declined getting OOB or dressed due to c/o nausea. Pt educated on purpose/benefit of OT, but continued to decline further ADLs at this time. Post tx, pt in bed, call light in reach and all needs met, bed alarm activated. Education OT Patient Education: Correct positioning, Energy conservation, Modified ADL techniques, Progress toward Goal/Update tx plan, Purpose of tx/functional activities, Rehab process Teaching Recipient: Patient Teaching Methods: Discussion Response to Teaching: Verbalize Understanding OT Fpc Goals Maintenance Supervisor Electrical Goals Time Frame: May 28, 2022 Eating (QC): 6 Oral Hygiene (QC): 6 Toileting Hygiene (QC): 6 Shower/Bathe Self (QC): 4 Upper Body Dressing (QC): 5 Lower Body Dressing (QC): 4 On/Off Footwear (QC): 5 Additional Goals: 1-Demonstrate ADL Tasks, 2-Verbalize Understanding, 3- ImproveStrength/Jus 1=Demonstrate adherence to instructed precautions during ADL tasks. 2=Patient will verbalize/demonstrate understanding of assistive devices/modifications for ADL. 3=Patient will improve strength/tolerance for activity to enable patient to perform ADL's. OT Education/Plan Problem List/Assessment Assessment: Decreased Activ Tolerance, Decreased UE Strength, Impaired Funct Balance, Impaired I ADL's, Impaired Self-Care Skills Discharge Recommendations Plan/Recommendations: Continue POC Treatment Plan/Plan of Care Patient would benefit from OT for education, treatment and training to promote independence in ADL's, mobility, safety and/or upper extremity function for ADL's. Plan of Care: ADL Retraining, Cognitive Retraining, Functional Mobility, Group Exercise/Act as Ind, UE Funct Exercise/Act Treatment Duration: May 28, 2022 Frequency: 3 times per week (3-5x/week ) Estimated Hrs Per Day: .25 hour per day Rehab Potential: Fair Time Start Time: 10:01 Stop Time: 10:11 DATE: May 17, 2022 Total Time Billed (hr/min): 10 Billed Treatment Time 1, ADL IRENE COLBERT OT May 17, 2022 10:22
[2022-05-17] MEDS ORDERED: BISACODYL 10 MG SUPP (DULCOLAX) ONE (10:50)
[2022-05-17] MEDS: HYDROcodone/APAP 7.5 MG/325 MG (LORTAB, LORCET PLUS) TABLET PO PRN ×3 (10:55→20:06)
[2022-05-17 11:34] VITALS: BP 116/64
--- NOTE | 2022-05-17 13:13 | Physical Therapy Daily Note ---
PT Daily Note-Current Subjective Pt found seated on bed upon entry. Agreed to PT. States that he has been sick and threw up this morning. Reports that he feels worse than he did during earlier PT Tx. Pain Section J - Health Conditions 1. Rarely or not at all 2. Occasionally 3. Frequently 4. Almost constantly 8. Unable to answer Pain Effect on Sleep: 2 Pain Interference with Therapy: 2 Pain Interference w/Day-to-Day: 2 Mental Status Patient Orientation: Normal For Age Transfers SCALE: Activities may be completed with or without assistive devices. 3-Kwdurnmsbe-qhjzrvj completes the activity by him/herself with no assistance from a helper. 5-Set-up or Clean-up Assistance-helper sets up or cleans up; patient completes activity. [place] assists only prior to or following the activity. 4-Supervision or Touching Assistance-helper provides verbal cues and/or touching/steadying and/or contact guard assistance as patient completes activity. Assistance may be provided throughout the activity or intermittently. 3-Partial/Moderate Assistance-helper does LESS THAN HALF the effort. [place] lifts, holds or supports trunk or limbs, but provides less than half the effort. 2-Substantial/Maximal Assistance-helper does MORE THAN HALF the effort. [place] lifts or holds trunk or limbs and provides more than half the effort. 5-Bsarvbcfn-ihwila does ALL the effort. Patient does none of the effort to complete the activity. Or, the assistance of 2 or more helpers is required for the patient to complete the activity. If activity was not attempted, code reason: 7-Patient Refused. 9-Not Applicable-not attempted and the patient did not perform the activity before the current illness, exacerbation or injury. 10-Not Attempted due to Environmental Limitations-(lack of equipment, weather restraints, etc.). 88-Not Attempted due to Medical Conditions or Safety Concerns. Sit to Lying (QC): 3 Lying to Sitting/Side of Bed(Q: 3 Sit to Stand (QC): 3 Pt MIN assist /c trfs. Weight Bearing Right Lower Extremity: Right Touch Toe Bearing Left Lower Extremity: Left Full Weight Bearing Gait Training Does the Patient Walk?: Yes Distance: 60 Walk 10 feet (QC): 4 Walk 50 ft with 2 Turns(QC): 4 Gait Assistive Device: FWW Pt CGA /c gait training. Amb 60ft total. Wheelchair Training Does the Pt Use a Wheelchair?: No Exercises Supine Ex: Ankle pumps, Quad Set, Heel Slides, Straight leg raise Supine Reps: 10 AAROM /c SLRs. Assessment Current Status: Fair Progress Pt has poor tolerance to Tx this visit d/t pain. Demonstrated slow amb. and pain /c gait training. Pt displays signs of pain and limited motion /c exercise. Continue to progress pt as tolerated per POC to increase endurance, strength, functional ability, and decrease pain. PT Short Term Goals Short Term Goals Time Frame: May 18, 2022 Roll Left & Right: 5 Sit to lyin Lying to sitting on side of be: 5 Sit to stand: 5 Chair/vdf-an-ncuxo transfer: 5 Toilet transfer: 5 Car transfer: 5 Walk 10 feet: 5 Walk 50 feet with two turns: 5 Walk 150 feet: 5 Walking 10ft on uneven surface: 5 1 step (curb): 5 4 steps: 5 12 steps: 5 PT Usp Goals Ceramics Teacher Goals PT Usp Goals Time Frame: May 21, 2022 Roll Left & Right (QC): 6 Sit to Lying (QC): 6 Lying-Sitting on Side/Bed(QC): 6 Sit to Stand (QC): 6 Chair/Muo-uk-Rjome Xfer(QC): 6 Toilet Transfer (QC): 6 Car Transfer (QC): 6 Does the Patient Walk: Yes Walk 10 feet (QC): 6 Walk 50ft with 2 Turns (QC): 6 Walk 150 ft (QC): 6 Walking 10ft on Uneven Surface: 6 1 Step (curb) (QC): 6 4 Steps (QC): 6 12 Steps (QC): 6 Picking up an Object (QC): 6 PT Plan Treatment/Plan Treatment Plan: Continue Plan of Care Treatment Plan: Bed Mobility, Education, Functional Activity Jus, Functional Strength, Group Therapy, Gait, Safety, Therapeutic Exercise, Transfers Treatment Duration: May 21, 2022 Frequency: 11 times per week Estimated Hrs Per Day: 1 hour per day Time Time In: 1248 Time Out: 1303 DATE: May 17, 2022 Total Billed Treatment Time: 15 Total Billed Treatment 1 visit GT 1x YOHANNES JUAREZ QUALITY CONTROL TECH RAW MATERIALS May 17, 2022 13:13
[2022-05-17] MEDS ORDERED: IOHEXOL 350 MG/ML 100 ML (OMNIPAQUE 350) VIAL IV ONE (13:15)
[2022-05-17] MEDS ORDERED: NS 100 ML (IVPB) BAG IV ONE (13:15)
[2022-05-17] MEDS ORDERED: CATHETER FLUSH 10 ML SYR IV PRN (13:15)
[2022-05-17] MEDS ORDERED: HOLD METFORMIN - RECEIVED CONTRAST 20 ML VIAL IV SCH (13:15)
--- NOTE | 2022-05-17 14:13 | Diagnostic Imaging Report ---
PROCEDURE: CT abdomen and pelvis with contrast. TECHNIQUE: Multiple contiguous axial images were obtained through the abdomen and pelvis after administration of intravenous contrast. Auto Exposure Controls were utilized during the CT exam to meet ALARA standards for radiation dose reduction. All CT scans use one or more of the following dose optimizing techniques: Automated exposure control, MA and/or KvP adjustment based on patient size and exam type or iterative reconstruction. INDICATION: Hip fracture and recent surgery, increasing pain. COMPARISON: I have no priors. FINDINGS: There are tiny subcentimeter pleural effusions, nonloculated, greater right, as well as dependent bibasilar partial atelectasis. There are scattered low-density lesions in the liver, too small to be confirmed as cystic but felt more likely cystic than solid. They number about 8 and involve left and right lobes, the largest of which measures 1 cm. No bile duct dilatation. Gallbladder is believed contracted but could be absent. Pancreas and its duct are unremarkable. Adrenals are negative. The spleen is negative. There is no hydronephrosis. Urinary bladder is distended with a small amount of air within its lumen; it is presumed from recent catheterization, but correlate clinically. There is no hydroureteronephrosis. The bladder wall is non-thickened. There are postsurgical changes repairing base, neck, and intertrochanteric right hip fracture. There is regional soft tissue swelling and edema, but no discrete fluid collection. No findings of pelvic sidewall or retroperitoneal hemorrhage. No intraperitoneal free fluid. No vascular contrast extravasation, and no opacified pseudoaneurysm. Remaining bony pelvis shows degenerative disease, but no additional fracture. Femoral heads and acetabula are intact. No abdominopelvic mesenteric or retroperitoneal lymphadenopathy. Aorta and mesenteric vessels are patent and nonaneurysmal. IMPRESSION: 1. Postsurgical right hip fracture with regional swelling, but no discrete fluid collection, contrast extravasation, or pseudoaneurysm. 2. No abdominopelvic intra- or retro-peritoneal hemorrhage, and no findings of solid or hollow visceral injury. 3. Distended urinary bladder with intraluminal air likely reflects recent catheterization. No hydroureteronephrosis with normal kidneys. 4. Scattered hepatic low-density foci, largely too small to be characterized definitively but felt most likely cystic. 5. Tiny pleural effusions and dependent basilar partial atelectasis. 6. No bowel, biliary, or urinary tract obstruction. Dictated by: Dictated on workstation # [id number]
[2022-05-17 15:40] VITALS: BP 121/76
--- NOTE | 2022-05-17 15:52 | Progress Note - Hospitalist ---
Subjective HPI/CC On Admission Date Seen by Provider: May 17, 2022 Time Seen by Provider: 10:30 Patient is a 66-year-old male who presented to the emergency department due to a fall and hip injury. 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 Imaging revealed a right hip fracture. He was admitted to the orthopedic surgery service for operative repair. I am consulted for medical management. He denies any complaints at this time and states his pain is well controlled. He is unsure when he will go to surgery but has already seen the surgeon and reports that it will be sometime today. Subjective/Events-last exam He is still having nausea. He denies abdominal pain. He has no other complaints. Objective Exam Vital Signs Vital Signs Date Time Temp Pulse Resp B/P (MAP) Pulse Ox O2 Delivery O2 Flow Rate FiO2 05/17/22 15:40 36.8 97 18 121/76 (91) 95 Room Air 05/17/22 08:00 0.00 Capillary Refill : Less Than 3 Seconds General Appearance: No Apparent Distress, WD/WN Respiratory: Lungs Clear, No Respiratory Distress Cardiovascular: Regular Rate, Rhythm, No Murmur Gastrointestinal: Normal Bowel Sounds, Soft Extremity: Normal Inspection, No Pedal Edema Neurologic/Psychiatric: Alert, Normal Mood/Affect Results/Procedures Lab Laboratory Tests 05/17/22 05:38 Patient resulted labs reviewed. Imaging: Reviewed Imaging Report Assessment/Plan Assessment and Plan Assess & Plan/Chief Complaint Right hip fracture Management per Ortho Pain regimen Bowel regimen PT/OT IRU evaluation, accepted, awaiting insurance approval Anemia Nausea and vomiting Upper GI bleeding Possibly due to Cecille-Chung tear Hgb stable, monitor Continue Protonix Bowel regimen Add suppository Antiemetics as needed Presumed schizophrenia Maintained on fluphenazine DVT ppx: Lovenox Diagnosis/Problems Diagnosis/Problems (1) Intertrochanteric fracture of right hip Status: Acute Qualifiers: Encounter type: initial encounter Fracture type: closed Fracture alignment: displaced Qualified Codes: S72.141A - Displaced intertrochanteric fracture of right femur, initial encounter for closed fracture (2) Anemia Status: Acute (3) Nausea & vomiting Status: Acute (4) GI bleed Status: Acute MELY JENKINS MD May 17, 2022 15:52
[2022-05-17 19:40] VITALS: BP 128/70
[2022-05-17 23:37] VITALS: BP 116/76
[2022-05-18 03:46] VITALS: BP 132/73
[2022-05-18 05:46] LABS: BASOPHILS % (AUTO) 0 % (0-10); EOSINOPHILS # (AUTO) 0.5 10^3/uL (0.0-0.3); EOSINOPHILS % (AUTO) 5 % (0-10); HEMATOCRIT 26 % (40-54); HEMOGLOBIN 8.6 g/dL (13.3-17.7); LYMPHOCYTES # (AUTO) 1.4 10^3/uL (1.0-4.0); LYMPHOCYTES % (AUTO) 13 % (12-44); MEAN CORPUSCULAR HEMOGLOBIN 30 pg (25-34); MEAN CORPUSCULAR HGB CONC 33 g/dL (32-36); MEAN CORPUSCULAR VOLUME 92 fL (80-99); MEAN PLATELET VOLUME 9.3 fL (9.0-12.2); MONOCYTES # (AUTO) 0.9 10^3/uL (0.0-1.0); MONOCYTES % (AUTO) 8 % (0-12); NEUTROPHILS % (AUTO) 73 % (42-75); PLATELET COUNT 332 10^3/uL (130-400); WHITE BLOOD COUNT 10.9 10^3/uL (4.3-11.0)
[2022-05-18 07:14] VITALS: BP 112/57
[2022-05-18] MEDS: BENZTROPINE MESYLATE 1 MG (COGENTIN) TAB PO SCH (08:08)
[2022-05-18] MEDS: PANTOPRAZOLE 40 MG (PROTONIX) VIAL IV SCH (08:08)
[2022-05-18] MEDS: ENOXAPARIN 40 MG/0.4 ML (LOVENOX) SYR SC SCH (08:09)
[2022-05-18] MEDS: SENNA W/DOCUSATE (SENOKOT S) TABLET PO SCH (08:09)
[2022-05-18] MEDS: HYDROcodone/APAP 7.5 MG/325 MG (LORTAB, LORCET PLUS) TABLET PO PRN (08:16)
[2022-05-18] MEDS ORDERED: BISACODYL 10 MG SUPP (DULCOLAX) PR PRN (09:00)
[2022-05-18 10:30] VITALS: BP 112/57
--- NOTE | 2022-05-18 10:40 | Progress Note ---
Standard Progress Note Progress Notes/Assess & Plan Date Seen by a Provider: May 18, 2022 Time Seen by a Provider: 10:29 Progress/Assessment & Plan no complaints Vital Signs Date Time Temp Pulse Resp B/P (MAP) Pulse Ox O2 Delivery O2 Flow Rate FiO2 05/14/22 08:22 37.3 85 18 134/74 (94) 96 Room Air 05/14/22 03:23 37.4 90 16 130/64 (86) 94 Room Air 05/14/22 00:00 37.2 86 16 123/64 (83) 94 Room Air 05/13/22 20:00 Room Air 05/13/22 19:25 36.8 93 18 136/77 (96) 92 Room Air 05/13/22 16:15 Room Air 05/13/22 16:10 37.0 16 118/79 (92) 94 Room Air 05/13/22 16:05 OxyMask 2.00 05/13/22 16:00 37.1 93 18 125/73 (90) 93 Room Air 05/13/22 16:00 15 135/79 (97) 99 OxyMask 3.00 05/13/22 15:50 15 122/80 (94) 98 OxyMask 6.00 05/13/22 15:50 OxyMask 3.00 05/13/22 15:40 16 120/78 (92) 98 OxyMask 6.00 05/13/22 15:32 36.7 16 119/77 (91) 98 OxyMask 6.00 05/13/22 15:32 OxyMask 6.00 05/13/22 11:55 37.5 91 19 125/74 (91) 92 Room Air I & O 05/14/22 07:00 Intake Total 2150 ml Output Total 2100 ml Balance 50 ml Laboratory Tests Test 05/14/22 05:17 Range/Units Hemoglobin 9.4 L 13.3-17.7 g/dL Hematocrit 28 L 40-54 % R hip dressing intact intact DF and PF of toes and ankle sensation intact throughout equal pulses s/p R hip IM ash PT/OT DC Bee hicks Final Diagnosis no complaints moving to IRU today will follow IRMA HOLDEN MD May 18, 2022 10:40
--- NOTE | 2022-05-18 13:30 | Discharge Summary ---
Discharge Summary Hospital Course Was the Problem List Reviewed?: Yes Problems/Dx: (1) Intertrochanteric fracture of right hip Status: Acute Qualifiers: Qualified Codes: S72.141A - Displaced intertrochanteric fracture of right femur, initial encounter for closed fracture (2) Anemia Status: Acute (3) Nausea & vomiting Status: Acute (4) GI bleed Status: Acute Hospital Course Date of Admission: May 12, 2022 at 17:20 Admission Diagnosis : Hip fracture Family Physician/Provider: No,Local Physician Date of Discharge: 05/18/22 Discharge Diagnosis: Hip fracture Hospital Course: Brennen Gomes is a 66 year old male who was admitted with a hip fracture. Orthopedic surgery admitted and performed intramedullary nailing. His course was complicated by anemia which remained stable. He had some issues with nausea and vomiting which resolved. There was some blood in his emesis which was likely due to Cecille Chung tears. He improved but remained debilitated and was discharged to inpatient rehab. Labs and Pending Lab Test: Laboratory Tests 05/18/22 05:03: White Blood Count 10.9, Red Blood Count 2.83L, Hemoglobin 8.6L, Hematocrit 26L, Mean Corpuscular Volume 92, Mean Corpuscular Hemoglobin 30, Mean Corpuscular Hemoglobin Concent 33, Red Cell Distribution Width 12.2, Platelet Count 332, Mean Platelet Volume 9.3, Immature Granulocyte % (Auto) 1, Neutrophils (%) (Auto) 73, Lymphocytes (%) (Auto) 13, Monocytes (%) (Auto) 8, Eosinophils (%) (Auto) 5, Basophils (%) (Auto) 0, Neutrophils # (Auto) 8.0H, Lymphocytes # (Auto) 1.4, Monocytes # (Auto) 0.9, Eosinophils # (Auto) 0.5H, Basophils # (Auto) 0.0, Immature Granulocyte # (Auto) 0.1 Microbiology 05/12/22 MRSA Screen - Final, Complete MRSA not isolated Home Meds Active Oxycodone-Acetaminophen 5-325 (Oxycodone HCl/Acetaminophen) 5 Mg-325 Mg Tablet 1 Each PO Q6H MDD 6 Reported Fluphenazine Decanoate 25 Mg/Ml Vial 0.75 Ml IJ Q3 WEEKS Benztropine Mesylate 2 Mg Tablet 2 Mg PO BID Assessment/Pt Instructions Discharged to inpatient rehab Discharge Planning: >30 minutes discharge planning Discharge Instructions Discharge Diet: No Restrictions Activity as Tolerated: Yes Discharge Physical Examination Vital Signs Vital Signs Date Time Temp Pulse Resp B/P (MAP) Pulse Ox O2 Delivery O2 Flow Rate FiO2 05/18/22 10:30 37.4 87 18 112/57 96 Room Air 0.00 General Appearance: No Apparent Distress, WD/WN Respiratory: Lungs Clear, No Respiratory Distress Cardiovascular: Regular Rate, Rhythm, No Murmur Gastrointestinal: Normal Bowel Sounds, Soft Extremity: Normal Inspection, No Pedal Edema Skin: Normal Color, Warm/Dry Neurologic/Psychiatric: Alert, Motor Weakness Allergies: Coded Allergies: No Known Drug Allergies (Unverified , 05/12/22) Discharge Summary Date of Admission May 12, 2022 at 17:20 Date of Discharge May 18, 2022 at 10:30 Discharge Date: May 18, 2022 Discharge Time: 10:30 Admission Diagnosis Hip fracture Consults/Procedures Procedures Hip surgery Discharge Diagnosis Right hip fracture Anemia Nausea and vomiting Upper GI bleeding Presumed schizophrenia (1) Intertrochanteric fracture of right hip Status: Acute Qualifiers: Qualified Codes: S72.141A - Displaced intertrochanteric fracture of right femur, initial encounter for closed fracture (2) Anemia Status: Acute (3) Nausea & vomiting Status: Acute (4) GI bleed Status: Acute MELY JENKINS MD May 18, 2022 13:30
--- NOTE | 2022-05-19 06:57 | DISCHARGE SUMMARY ---
DIAGNOSES: 1. Right intertrochanteric femur fracture. 2. Postoperative nausea and vomiting. 3. Upper gastrointestinal bleeding. 4. Schizophrenia. 5. Postoperative anemia secondary to surgical blood loss. PROCEDURE: Right hip intramedullary nail. SUMMARY: The patient is a 66-year-old gentleman, who fell at work and presented from an outside facility with a right intertrochanteric femur fracture. He underwent intramedullary nailing without complications. Postoperatively, he developed nausea and vomiting. He was noted to have some blood in his vomitus. It was felt this is likely due to a Cecille-Chung tear. His hemoglobin was stable and stable at 10 and was felt to have lowered secondary to surgical blood loss. His nausea and vomiting was improving at the time of discharge. His wound was clean and dry. He was progressing well with physical therapy. CONDITION AT DISCHARGE: Good. DISCHARGE DISPOSITION: Transferred to the inpatient rehabilitation unit for continued physical and occupational therapy. Job ID: [id number] DocumentID: [id number] Dictated Date: 05/18/2022 09:48:44 Training Executive Date: 05/19/2022 06:55:00 Dictated By: IRMA HOLDEN MD
== END 2022-05-18 10:30 | DRG 480 ==
LOC: ER FS 13:22 → 4TH 17:20
PROVIDERS: ADMIT Orthopaedic Surgery; ATTEND Orthopaedic Surgery
PROC: 0QS636Z Reposition Right Upper Femur with Intramedullary Internal Fixation Device, Percutaneous Approach (ICD-10-PCS; principal; 2022-05-13 14:24)
DX: S72.141A Displaced intertrochanteric fracture of right femur, initial encounter for closed fracture (principal); K22.6 Gastro-esophageal laceration-hemorrhage syndrome; D62 Acute posthemorrhagic anemia; R11.2 Nausea with vomiting, unspecified; F70 Mild intellectual disabilities; H54.8 Legal blindness, as defined in USA; M17.11 Unilateral primary osteoarthritis, right knee; F20.9 Schizophrenia, unspecified; W19.XXXA Unspecified fall, initial encounter
CPT/HCPCS: 36415; 71045; 72170; 73552; 73590; 74018; 74177; 76000; 80048; 80053; 82271; 85014; 85018; 85025; 85610; 85730; 87081; 94664

== ENCOUNTER 2022-05-18 09:34 | Inpatient (IN) | payer OTHER ==
[~2022-05-18] VITALS: Ht 177 cm; Wt 90.4 kg
[~2022-05-18 09:34] MED LIST: BENZ2TAB6 PO; FLUP25VI3 IJ; OXYC1TAB11 PO
[2022-05-18] MEDS ORDERED: BISACODYL 10 MG SUPP (DULCOLAX) PR PRN ×2 (10:15→18:00)
[2022-05-18] MEDS ORDERED: ALPRAZolam 0.25 MG (XANAX) TAB PO PRN (10:15)
[2022-05-18] MEDS ORDERED: MELATONIN 3 MG TABLET PO PRN (10:15)
[2022-05-18] MEDS ORDERED: LOPERAMIDE 2 MG (IMODIUM) TABLET PO PRN (10:15)
[2022-05-18] MEDS ORDERED: ACETAMINOPHEN 325 MG TABLET PO PRN (10:15)
[2022-05-18] MEDS ORDERED: DOCUSATE SODIUM 100 MG (COLACE) CAP PO PRN (10:15)
[2022-05-18] MEDS ORDERED: CALCIUM CARBONATE 500 MG (TUMS) TAB.CHEW PO PRN (10:15)
[2022-05-18] MEDS ORDERED: diphenhydrAMINE 25 MG TAB (BENADRYL) PO PRN (10:15)
[2022-05-18] MEDS ORDERED: FLEET ENEMA ADULT 1 EA BTL PR PRN (10:15)
--- NOTE | 2022-05-18 10:31 | PM&R Post Admission Assessment ---
PM&R HP Date of Visit: May 18, 2022 Time of Visit: 14:00 History of Present Illness CC: Debility 2/2 right intertrochanteric femur fracture s/p surgical repair HPI: The patient is a 66-year-old male presented to the ED on 05/12 with fall and right hip injury after he fell at work while pushing a cart. He was found to have a right intertrochanteric femur fracture. He reported he was doing well prior to that and had no history of hip injuries or complaints. Dr. Patterson performed uncomplicated repair on 05/13 with right hip intramedullary nail. He developed post op ileus symptoms on 05/15 with nausea and vomiting some dark black with bright red blood also noted. Has been maintained on antiemetics. His stay was also complicated by anemia which remained stable. He has some mild intellectual disability, but is independently living. Today he reports feeling he is recovering well and is ready to move to the rehab unit. 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 ROS: Constitutional: No chills, No fever EENTM: No blurred vision, No double vision, wears glasses Respiratory: No SOB, No cough Cardiovascular: No chest pain, No palpitations Gastrointestinal: No constipation, No diarrhea, No melena, +Nausea Genitourinary: No dysuria, No frequency Musculoskeletal: Right hip pain Skin: No lesions, No lumps Psychiatric/Neurological: Denies Headache, Denies Numbness Exam: Vital Signs Date Time Temp Pulse Resp B/P (MAP) Pulse Ox O2 Delivery O2 Flow Rate FiO2 05/18/22 10:30 37.4 87 18 112/57 96 Room Air 0.00 General Appearance: No Apparent Distress HEENT: Atraumatic, Normocephalic, PERRL, EOMI, wearing glasses Respiratory: Lungs Clear, No Respiratory Distress, No accessory muscle use Cardiovascular: Regular Rate, Rhythm, No Murmur Gastrointestinal: Soft, Nontender Extremity: Right LE braced, movement limited 2/2 right LE immobility Neurologic/Psychiatric: Alert, Normal Mood/Affect Skin: Normal Color, Warm/Dry Labs: Hgb - 8.6 A/P: Right intertrochanteric femur fracture S/p repair - IM ash Management per Ortho Pain regimen Bowel regimen PT/OT Admitted to IRU Anemia Nausea and vomiting Upper GI bleeding Possibly due to Cecille-Chung tear Hgb stable, monitor Continue Protonix Bowel regimen Add suppository Antiemetics as needed Presumed schizophrenia Maintained on fluphenazine DVT ppx: Lovenox DANTE OCONNELL May 18, 2022 13:32 Past Xrfucxm-Cuemrb-Twgfjb Hx Past Med/Social Hx: Reviewed Nursing Past Med/Soc Hx, Reviewed and Corrections made Patient Social History Marrital Status: single Employed/Student: employed Alcohol Use: Denies Use Smoking Status: Never a Smoker Immunizations Up To Date Date of Influenza Vaccine: Feb 10, 2022 Past Medical History Surgeries: Orthopedic Currently Using CPAP: No Currently Using BIPAP: No Neurological: Developmental Disorder Reproductive: No Loss of Vision: Bilateral PM&R Allergy/Meds/Data Review Allergies Coded Allergies: No Known Drug Allergies (Unverified , 05/12/22) Home Medications Scheduled Benztropine Mesylate (Benztropine Mesylate), 2 MG PO BID, (Reported) Fluphenazine Decanoate (Fluphenazine Decanoate), 0.75 ML IJ Q3 WEEKS, (Reported) Oxycodone HCl/Acetaminophen (Oxycodone-Acetaminophen 5-325), 1 EACH PO Q6H Current Medications Current Medications Reviewed Review of Systems Constitutional: see HPI, malaise, weakness EENTM: no symptoms reported Respiratory: no symptoms reported Cardiovascular: no symptoms reported Gastrointestinal: no symptoms reported Genitourinary: no symptoms reported Musculoskeletal: back pain, joint pain Skin: no symptoms reported Psychiatric/Neurological: Anxiety, Depressed All Other Systems Reviewed Negative Unless Noted: Yes Physical Exam Physical Exam Vital Signs Capillary Refill : Height, Weight, BMI Height: '" Weight: lbs. oz. kg; 28.08 BMI Method: General Appearance: No Apparent Distress, WD/WN Eyes: Bilateral Eye Normal Inspection, Bilateral Eye PERRL HEENT: PERRL/EOMI, Normal ENT Inspection, Pharynx Normal Neck: Full Range of Motion, Normal Inspection, Non Tender, Supple, Carotid Bruit Respiratory: Chest Non Tender, Lungs Clear, Normal Breath Sounds, No Accessory Muscle Use, No Respiratory Distress Cardiovascular: Regular Rate, Rhythm, No Edema, No Gallop, No JVD, No Murmur, Normal Peripheral Pulses Gastrointestinal: Normal Bowel Sounds, No Organomegaly, No Pulsatile Mass, Non Tender, Soft Back: Normal Inspection, No CVA Tenderness, No Vertebral Tenderness Extremity: Normal Capillary Refill, Normal Inspection, Normal Range of Motion, Non Tender, No Calf Tenderness, No Pedal Edema Neurologic/Psychiatric: Alert, Oriented x3, No Motor/Sensory Deficits (right leg weak), Normal Mood/Affect, critical care technician II-XII Norm as Tested, Abnormal Gait, Motor Weakness Skin: Normal Color, Warm/Dry Lymphatic: No Adenopathy PM&R Medical Assessment & Plan REHAB/MEDICAL ASSESSMENT AND PLAN: REHAB IMPAIRMENT GROUP: Right hip fracture at work ETIOLOGIC DIAGNOSIS: Right hip fracture at work The comorbidities that impact the patients function and/or functional outcome by: intellectual delay, severe pain right leg, GIB post op, nausea REHAB PLAN: The patient is being admitted to our comprehensive inpatient rehabilitation facility and can tolerate the intensity of service consisting of at least: 180 minutes of therapy a day, 5 out of 7 days a week Rehab treatment will consist of: PT OT will focus on regaining function in order to return home to independent living while utilizing AD The patient/family has a good understanding of our discharge process and will benefit from an interdisciplinary inpatient rehabilitation program. The patient has potential to make improvement and is in need of at least two of the following multidisciplinary therapies including but not limited to physical, occupational, speech, and prosthetics and orthotics. Additionally the patient will need services from respiratory, nutritional services, wound care, psychology, etc. (Customize this to each patient). Given the patients complex condition and risk of further medical complications, rehabilitation services cannot be safely or effectively provided at a lower level of care such as a group home facility. BARRIERS TO DISCHARGE: Intellectual delay ESTIMATED LOS: 7 days DISPOSITION: Home alone RELEVANT CHANGES SINCE PREADMISSION SCREENING: I have compared the patients medical and functional status at the time of the preadmission screening and there are: no changes PROGNOSIS: Good REHABILITATION GOALS: 1. PT OT will focus on regaining function in order to return home to independent living while utilizing AD All the above goals were reviewed with the patient and he/she is in agreement. By signing this document, I acknowledge that I have personally performed a full physical examination on this patient within 24 hours of admission to this inpatient rehabilitation facility and have determined the patient to be able to tolerate the above course of treatment at an intensive level for a reasonable pe riod of time. I will be completing a detailed individualized Plan of Care for this patient by day #4 of the patients stay based upon the Preadmission Screen, the Post-Admission Evaluation, and the therapy evaluations. Admission Dx/Comorbidities: (1) Intertrochanteric fracture of right hip Status: Acute ICD Codes: S72.141A - Displaced intertrochanteric fracture of right femur, initial encounter for closed fracture (2) GI bleed Status: Acute ICD Codes: K92.2 - Gastrointestinal hemorrhage, unspecified (3) Nausea & vomiting Status: Acute ICD Codes: R11.2 - Nausea with vomiting, unspecified (4) Anemia Status: Acute ICD Codes: D64.9 - Anemia, unspecified (5) Fall on same level Status: Acute ICD Codes: W18.30XA - Fall on same level, unspecified, initial encounter Assessment/Plan Assessment and Plan Assess & Plan/Chief Complaint A/P: Right intertrochanteric femur fracture S/p repair - IM ash Management per Ortho Pain regimen Bowel regimen PT/OT Admitted to IRU Anemia Nausea and vomiting Upper GI bleeding Possibly due to Cecille-Chung tear Hgb stable, monitor Continue Protonix Bowel regimen Add suppository Antiemetics as needed Presumed schizophrenia Maintained on fluphenazine DVT ppx: Lovetriciax LULA RUBI DO May 18, 2022 10:31
--- NOTE | 2022-05-18 11:48 | Occupational Therapy Eval ---
OT Evaluation-General/PLF Medical Diagnosis Admission Date May 18, 2022 at 10:30 Medical Diagnosis: s/p IM nail Onset Date: May 13, 2022 Therapy Diagnosis Therapy Diagnosis: reduced adl status Precautions Precautions/Isolations: Fall Prevention, Standard Precautions Weight Bear Status Weight Bearing Restriction: Touch Toe Bearing Location Restriction: R LE Referral Physician: Debbie Johnson Reason: Evaluation/Treatment Medical History Current History Pt presents to hospital after fall at work resulting in R hip fx. s/p ORIF. Per patient, he lives alone in a ground level apartment. He was indep with adls and iadls except he does not drive. Per patient he walks ~1.25 miles to work everyday (gets up at 1:45 in the morning). His sister states that he takes an uber home after work. Pt was not using any AD at baseline. 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 His sister has a single level home with 4 steps to enter. She has a tub/shower. No DME at this time, but will be looking into it. Reviewed History: Yes Social History Home: Apartment Current Living Status: Alone Entry Into Home: Level Entry ADL-Prior Level of Function SCALE: Activities may be completed with or without assistive devices. 2-Yeegdvvvir-elowoqn completes the activity by him/herself with no assistance from a helper. 5-Set-up or Clean-up Assistance-helper sets up or cleans up; patient completes activity. [place] assists only prior to or following the activity. 4-Supervision or Touching Assistance-helper provides verbal cues and/or touching/steadying and/or contact guard assistance as patient completes activity. Assistance may be provided throughout the activity or intermittently. 3-Partial/Moderate Assistance-helper does LESS THAN HALF the effort. [place] lifts, holds or supports trunk or limbs, but provides less than half the effort. 2-Substantial/Maximal Assistance-helper does MORE THAN HALF the effort. [place] lifts or holds trunk or limbs and provides more than half the effort. 8-Pwrtrzeze-jssmlq does ALL the effort. Patient does none of the effort to complete the activity. Or, the assistance of 2 or more helpers is required for the patient to complete the activity. If activity was not attempted, code reason: 7-Patient Refused. 9-Not Applicable-not attempted and the patient did not perform the activity before the current illness, exacerbation or injury. 10-Not Attempted due to Environmental Limitations-(lack of equipment, weather restraints, etc.). 88-Not Attempted due to Medical Conditions or Safety Concerns. Self Care: Independent Functional Cognition: Independent DME/Equipment: Tub/Shower Drive Self: No OT Current Status Subjective Pt verbalizes R hip pain as 9/10. Co-treat with PT secondary to high pain levels, poor mobility, fall risk, and the need of 2 skilled clinicians to progress indep and safety with adls and functional mobility. Appearance Pt left sitting in recliner, all needs within reach at OT departure. Mental Status/Objective Patient Orientation: Person, Place, Situation Attachments: IV Current Glasses/Contacts: Yes Hearing Aids: No Dentures/Partials: No Hand Dominance: Right Upper Extremity ROM WFL Upper Extremity Strength 4/5 throughout ADL-Treatment Eating (QC): 5 Oral Hygiene (QC): 3 (min assist needed for balance in standing, set up if completed in sitting.) Shower/Bathe Self (QC): 3 Upper Body Dressing (QC): 5 Lower Body Dressing (QC): 2 On/Off Footwear (QC): 1 Toileting Hygiene (QC): 2 Pt requests to defer shower due to high pain levels; agreeable to sponge bath. Majority of Activity completed in sitting. He stood only briefly to wash [place] area/buttocks. Mod a needed to wash buttocks due to needing at least single UE support on walker. Good adherence to TTWB in standing but unable to maintain for long periods of time. At this time, pt unable to reach past knees to reach feet during LB dressing/bathing tasks. Thus dependent to wash and thread feet through clothing. Pt will benefit from instruction on AE. Mod a to pull clothing over hips, again due to poor standing tolerance and needing 1UE support on walker. Min-mod a to stand, min a once upright. Other Treatments While in parallel bars, pt reached in multiple planes with focus on improving standing balance (while maintaining TTWB), endurance, strength, and reducing UE support. No LOB when reaching out of JESSICA, good adherence to TTWB. With prolonged standing, pt does become shaky and require sitting rest breaks. Increased balance assist required when removing BUE support. Education OT Patient Education: Correct positioning, Energy conservation, Modified ADL techniques, Progress toward Goal/Update tx plan, Purpose of tx/functional activities, Reviewed precautions, Rehab process, Safety issues, Transfer techniques, W/C management Teaching Recipient: Patient Teaching Methods: Demonstration, Discussion Response to Teaching: Verbalize Understanding, Return Demonstration, Reinforcement Needed BIMS CAM BIMS Expression of Ideas and Wants: Difficulty Understanding Verbal Content: Usually Understands Brief Interview/Mental Status: Yes IRF PARTH BIMS: IRF PARTH BIMS Response (Comments) Value Repitition of Three Words Three 3 Recalls Socks Yes, No Cue Required 2 Recalls Blue Yes, No Cue Required 2 Recalls Bed Yes, After Cueing 1 Year Correct 3 Month Accurate Within 5 Days 2 Day Correct 1 Total 14 [address] Ass[address]. Mental St[address] No Notes: CAM Mental Status Change/Baseline: 0 Inattention: 0 Disorganized thinkin Altered level of consciousness: 0 OT Short Term Goals Short Term Goals Time Frame: May 25, 2022 Eatin Oral hygiene: 6 Toileting hygiene: 3 Shower/bathe self: 3 Upper body dressin Lower body dressin Putting on/taking off footwear: 3 OT Barbering Instructor Goals Barbering Instructor Goals Time Frame: Jun 01, 2022 Eating (QC): 6 Oral Hygiene (QC): 6 Toileting Hygiene (QC): 6 Shower/Bathe Self (QC): 5 Upper Body Dressing (QC): 6 Lower Body Dressing (QC): 5 On/Off Footwear (QC): 5 Additional Goals: 1-Demonstrate ADL Tasks, 2-Verbalize Understanding, 3- ImproveStrength/Jus 1=Demonstrate adherence to instructed precautions during ADL tasks. 2=Patient will verbalize/demonstrate understanding of assistive devices/modifications for ADL. 3=Patient will improve strength/tolerance for activity to enable patient to perform ADL's. OT Education/Plan Problem List/Assessment Assessment: Decreased Activ Tolerance, Decreased Safety Aware, Edema, Impaired Cognition, Impaired Funct Balance, Impaired I ADL's, Impaired Self-Care Skills Discharge Recommendations Plan/Recommendations: Continue POC Therapy Discharge Recommendati: Post Acute OT Treatment Plan/Plan of Care Treatment,Training & Education: Yes Patient would benefit from OT for education, treatment and training to promote independence in ADL's, mobility, safety and/or upper extremity function for ADL's. Plan of Care: ADL Retraining, Functional Mobility, Group Exercise/Act as Ind, UE Funct Exercise/Act Treatment Duration: Jun 01, 2022 Frequency: At least 5 of 7 days/Wk (IRF) Estimated Hrs Per Day: 1.5 hours per day Time Start Time: 10:30 Stop Time: 11:55 DATE: May 18, 2022 Total Time Billed (hr/min): 75 Billed Treatment Time 1 visit EVM (10 min) ADL x3 (50 min) FA (15 min) OT eval: [id number] (10 min) PT eval: [id number] Co-treat: [id number] (65 min) Marina Tuttle OT May 18, 2022 11:48
--- NOTE | 2022-05-18 11:53 | Physical Therapy Evaluation ---
PT Evaluation-General Medical Diagnosis Admission Date May 18, 2022 at 10:30 Medical Diagnosis: right hip ORIF Onset Date: May 13, 2022 Therapy Diagnosis Therapy Diagnosis: impaired mobility Precautions Precautions/Isolations: Fall Prevention, Standard Precautions Weight Bear Status Right Lower Extremity: Right Touch Toe Bearing Referral Physician: Kierra Lewis DO Reason for Referral: Evaluation/Treatment Medical History Additional Medical History intellectual disability Reviewed History: Yes Social History Home: Single Level Current Living Status: Alone Prior Prior Level of Function SCALE: Activities may be completed with or without assistive devices. 6-Cqudnpuppx-xwnvnyt completes the activity by him/herself with no assistance from a helper. 5-Set-up or Clean-up Assistance-helper sets up or cleans up; patient completes activity. [place] assists only prior to or following the activity. 4-Supervision or Touching Assistance-helper provides verbal cues and/or touching/steadying and/or contact guard assistance as patient completes activity. Assistance may be provided throughout the activity or intermittently. 3-Partial/Moderate Assistance-helper does LESS THAN HALF the effort. [place] lifts, holds or supports trunk or limbs, but provides less than half the effort. 2-Substantial/Maximal Assistance-helper does MORE THAN HALF the effort. [place] lifts or holds trunk or limbs and provides more than half the effort. 5-Wuqlzildh-ewwykt does ALL the effort. Patient does none of the effort to complete the activity. Or, the assistance of 2 or more helpers is required for the patient to complete the activity. If activity was not attempted, code reason: 7-Patient Refused. 9-Not Applicable-not attempted and the patient did not perform the activity before the current illness, exacerbation or injury. 10-Not Attempted due to Environmental Limitations-(lack of equipment, weather restraints, etc.). 88-Not Attempted due to Medical Conditions or Safety Concerns. Bed Mobility: 6 Transfers (B,C,W/C): 6 Gait: 6 Stairs: 6 Indoor Mobility (Ambulation): Independent Stairs: Independent PT Evaluation-Current Subjective Patient in bed pre tx, agrees to PT, has 9/10 pain in right hip. Will be co- treating with OT for part of tx due to poor patient mobility, strength, endurance, severe pain with activity, coordinate UE and LE with activity, safety and reduce risk of falls. Pain Section J - Health Conditions 1. Rarely or not at all 2. Occasionally 3. Frequently 4. Almost constantly 8. Unable to answer Pain Effect on Sleep: 4 Pain Interference with Therapy: 4 Pain Interference w/Day-to-Day: 4 Pt/Family Goals to be independent at home Objective Patient Orientation: Person, Place, Situation ROM/Strength ROM Lower Extremities NT Strength Lower Extremities NT Sensory Vision: Wears Glasses Hearing: Functional Sensation Right Lower Extremit: Intact Sensation Left Lower Extremity: Intact Transfers Roll Left & Right (QC): 3 Sit to Lying (QC): 3 Lying to Sitting/Side of Bed(Q: 3 Sit to Stand (QC): 3 Chair/Pwb-vh-Tzbqv Xfer(QC): 4 Toilet Transfer (QC): 4 Car Transfer (QC): 3 Patient performs rolling and supine <-> sit with min assist, sit <-> stand min assist, transfers CGA, car transfer min assist. Patient needs cues for positioning and safety. Gait Does the Patient Walk?: Yes Mode of Locomotion: Walk Anticipated Mode of Locomotion: Walk Walk 10 feet (QC): 4 Walk 50 ft with 2 Turns(QC): 4 Walk 150 ft (QC): 88 Walking 10ft/uneven surface-QC: 88 Distance: 50'x2 Gait Assistive Device: FWW Comments/Gait Description Patient can ambulate 50' with a rolling walker with CGA (including 50' with at least 2 turns of 90 degrees), patient is mostly compliant with TTWB on the right leg, he is fairly unsteady and was not safe to ambulate over an uneven surface. Wheelchair Training Does the Pt Use a Wheelchair?: Yes Distance: 100' Wheel 50 ft with 2 turns (QC): 4 Wheel 150 ft (QC): 88 Type of Wheelchair: Manual Stairs 1 Step (curb) (QC): 88 4 Steps (QC): 88 12 Steps (QC): 88 Balance Sitting Static: Normal Sitting Dynamic: Normal Standing Static: Fair Standing Dynamic: Poor Picking up an Object (QC): 4 (CGA using field account director) Treatment Patient also performed bathing and dressing, ADL's, standing activity working on balance and reaching in the parallel bars. PT worked on bed mobility and transfers, ambulation, WC mobility, positioning and safety during bathing and dressing, standing and balance during parallel bars activity, OT worked on bathing, dressing, ADL's, parallel bars reaching activity, UE positioning and safety during activity. Assessment/Needs Patient in recliner post tx with nurse call, phone, tray, all needs met. Patient has impaired mobility and strength, needs min assist for sit to stand and CGA for transfers. Rehab Potential: Fair PT Short Term Goals Short Term Goals Time Frame: May 25, 2022 Roll Left & Right: 4 (SBA) Sit to lyin (SBA) Lying to sitting on side of be: 4 (SBA) Sit to stand: 4 (CGA) Chair/urf-al-kjgcq transfer: 4 (SBA) Walk 10 feet: 4 (SBA) Walk 50 feet with two turns: 4 (SBA) Walk 150 feet: 4 (SBA) PT Fci Goals Fci Goals PT Fci Goals Time Frame: Jun 01, 2022 Roll Left to Right (QC): 6 Sit to Lying (QC): 6 Lying-Sitting on Side/Bed(QC): 6 Sit to Stand (QC): 6 Chair/Bsr-ux-Swjvk Xfer(QC): 6 Toilet/Commode Transfer (QC): 6 Car Transfer (QC): 6 Does the Patient Walk: Yes Walk 10 feet (QC): 6 Walk 10ft-Uneven Surface(QC): 6 Walk 50ft with 2 Turns (QC): 6 Walk 150 ft (QC): 6 Wheel 50 feet with 2 turns (QC: 9 Wheel 150 feet: 9 1 Step (curb) (QC): 4 4 Steps (QC): 4 12 Steps (QC): 88 Picking up an Object (QC): 6 PT Plan Problem List Problem List: Activity Tolerance, Functional Strength, Safety, Balance, Gait, Transfer, Bed Mobility, ROM Treatment/Plan Treatment Plan: Continue Plan of Care Treatment Plan: Bed Mobility, Education, Functional Activity Jus, Functional Strength, Group Therapy, Gait, Safety, Therapeutic Exercise, Transfers Treatment Duration: Jun 01, 2022 Frequency: At least 5 of 7 days/Wk (IRF) Estimated Hrs Per Day: 1.5 hours per day Patient and/or Family Agrees t: Yes Safety Risks/Education Patient Education: Gait Training, Transfer Techniques, Reviewed Precautions, Correct Positioning, W/C Management, Safety Issues Teaching Recipient: Patient Teaching Methods: Demonstration, Discussion Response to Teaching: Reinforcement Needed Discharge Recommendations Plan Patient will perform bed mobility and transfer training, balance and endurance training, functional strengthening, stair training, gait training, and education, to improve functional mobility and independence at home. Therapy Discharge Recommendati: Home & Family, Post Acute PT Time Time In: 1030 Time Out: 1155 DATE: May 18, 2022 Total Billed Treatment Time: 75 Total Billed Treatment 1 visit EVM 10' FA 65' OT eval from [id number], PT eval from [id number], co-treat from [id number] BOSTON HIGHTOWER PT May 18, 2022 11:53
--- NOTE | 2022-05-18 13:32 | Progress Note ---
[facility] 05/18/22 1332: Progress Note CC: Debility 2/2 right intertrochanteric femur fracture s/p surgical repair HPI: The patient is a 66-year-old male presented to the ED on 05/12 with fall and right hip injury after he fell at work while pushing a cart. He was found to have a right intertrochanteric femur fracture. He reported he was doing well prior to that and had no history of hip injuries or complaints. Dr. Patterson performed uncomplicated repair on 05/13 with right hip intramedullary nail. He developed post op ileus symptoms on 05/15 with nausea and vomiting some dark black with bright red blood also noted. Has been maintained on antiemetics. His stay was also complicated by anemia which remained stable. He has some mild intellectual disability, but is independently living. Today he reports feeling he is recovering well and is ready to move to the rehab unit. 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 ROS: Constitutional: No chills, No fever EENTM: No blurred vision, No double vision, wears glasses Respiratory: No SOB, No cough Cardiovascular: No chest pain, No palpitations Gastrointestinal: No constipation, No diarrhea, No melena, +Nausea Genitourinary: No dysuria, No frequency Musculoskeletal: Right hip pain Skin: No lesions, No lumps Psychiatric/Neurological: Denies Headache, Denies Numbness Exam: Vital Signs Date Time Temp Pulse Resp B/P (MAP) Pulse Ox O2 Delivery O2 Flow Rate FiO2 05/18/22 10:30 37.4 87 18 112/57 96 Room Air 0.00 General Appearance: No Apparent Distress HEENT: Atraumatic, Normocephalic, PERRL, EOMI, wearing glasses Respiratory: Lungs Clear, No Respiratory Distress, No accessory muscle use Cardiovascular: Regular Rate, Rhythm, No Murmur Gastrointestinal: Soft, Nontender Extremity: Right LE braced, movement limited 2/2 right LE immobility Neurologic/Psychiatric: Alert, Normal Mood/Affect Skin: Normal Color, Warm/Dry Labs: Hgb - 8.6 A/P: Right intertrochanteric femur fracture S/p repair - IM ash Management per Ortho Pain regimen Bowel regimen PT/OT Admitted to IRU Anemia Nausea and vomiting Upper GI bleeding Possibly due to Cecille-Chung tear Hgb stable, monitor Continue Protonix Bowel regimen Add suppository Antiemetics as needed Presumed schizophrenia Maintained on fluphenazine DVT ppx: Lovenox KIERRA RUBI DO 05/19/22 0442: Supervisory-Addendum Brief Verification & Attestation Participated in pt care: history, MDM, physical Personally performed: exam, history, MDM, supervision of care Care discussed with: Medical Student Procedures: n/a Results interpretation: Verified all documentation Verification and Attestation of Medical Student E/M Service A medical student performed and documented this service in my presence. I reviewed and verified all information documented by the medical student and made modifications to such information, when appropriate. I personally performed the physical exam and medical decision making. Kierra Rubi, May 19, 2022,04:42 DANTE OCONNELL May 18, 2022 13:32 KIERRA RUBI DO May 19, 2022 04:42
[2022-05-18] MEDS ORDERED: ONDANSETRON 4 MG/2 ML (SDV) Z0FRAN IVP PRN (18:00)
[2022-05-18] MEDS ORDERED: HOLD METFORMIN - RECEIVED CONTRAST 20 ML VIAL IV SCH (18:00)
[2022-05-18] MEDS ORDERED: morphine INJ 4 MG/ML 1 ML (VIAL/SYRINGE) IVP PRN (18:00)
[2022-05-18] MEDS ORDERED: PROMETHAZINE INJ 25 MG/ML (PHENERGAN) AMP IVP PRN (18:00)
[2022-05-18] MEDS ORDERED: CATHETER FLUSH 10 ML SYR IV PRN (18:00)
[2022-05-18] MEDS: polyethylene glycoL POWDER 17 GM (MIRALAX) PACK PO SCH (19:55)
[2022-05-18 20:12] VITALS: BP 126/66
[2022-05-18] MEDS: SENNA W/DOCUSATE (SENOKOT S) TABLET PO SCH (20:12)
[2022-05-18] MEDS: BENZTROPINE MESYLATE 1 MG (COGENTIN) TAB PO SCH (20:12)
[2022-05-18] MEDS: DOCUSATE SODIUM 100 MG (COLACE) CAP PO SCH (20:12)
[2022-05-18] MEDS: HYDROcodone/APAP 7.5 MG/325 MG (LORTAB, LORCET PLUS) TABLET PO PRN (20:12)
[2022-05-18] MEDS: guaiFENesin/CODEINE (ROBITUSSIN AC) 10ML UDC PO PRN (20:13)
[2022-05-18] MEDS: PANTOPRAZOLE 40 MG (PROTONIX) VIAL IV SCH (20:13)
[2022-05-18] MEDS ORDERED: SENNA W/DOCUSATE (SENOKOT S) TABLET PO SCH (21:00)
[2022-05-18] MEDS: ONDANSETRON 4 MG (ZOFRAN) ORAL DISSOLVE TAB PO PRN (22:55)
[2022-05-19 06:00] LABS: ALBUMIN 2.9 GM/DL (3.2-4.5); BASOPHILS % (AUTO) 0 % (0-10); EOSINOPHILS # (AUTO) 0.3 10^3/uL (0.0-0.3); EOSINOPHILS % (AUTO) 3 % (0-10); HEMATOCRIT 25 % (40-54); HEMOGLOBIN 8.4 g/dL (13.3-17.7); LYMPHOCYTES % (AUTO) 9 % (12-44); MEAN CORPUSCULAR HEMOGLOBIN 30 pg (25-34); MEAN CORPUSCULAR HGB CONC 34 g/dL (32-36); MEAN CORPUSCULAR VOLUME 91 fL (80-99); MEAN PLATELET VOLUME 9.1 fL (9.0-12.2); MONOCYTES % (AUTO) 9 % (0-12); NEUTROPHILS # (AUTO) 8.2 10^3/uL (1.8-7.8); NEUTROPHILS % (AUTO) 77 % (42-75); PLATELET COUNT 359 10^3/uL (130-400); POTASSIUM 3.6 MMOL/L (3.6-5.0); WHITE BLOOD COUNT 10.6 10^3/uL (4.3-11.0)
[2022-05-19 06:02] LABS: CALCIUM 8.2 MG/DL (8.5-10.1)
[2022-05-19 06:03] LABS: TOTAL PROTEIN 5.7 GM/DL (6.4-8.2)
--- NOTE | 2022-05-19 06:03 | PM&R Progress Note ---
Subjective HPI/CC On Admission Date Seen by Provider: May 19, 2022 Time Seen by Provider: 11:30 Subjective/Events-last exam 05/19/2022: Doing very well Pain controlled BM needs to occur so giving meds No falls Slept well last night Review of Systems General: Fatigue, Malaise Musculoskeletal: leg pain Objective Exam Vital Signs Vital Signs Date Time Temp Pulse Resp B/P (MAP) Pulse Ox O2 Delivery O2 Flow Rate FiO2 05/19/22 08:15 Room Air 05/19/22 07:18 37.1 99 22 117/66 (83) 96 Capillary Refill : General Appearance: No Apparent Distress, WD/WN HEENT: PERRL/EOMI, Normal ENT Inspection, Pharynx Normal Neck: Full Range of Motion, Normal Inspection, Non Tender, Supple, Carotid Bruit Respiratory: Chest Non Tender, Lungs Clear, Normal Breath Sounds, No Accessory Muscle Use, No Respiratory Distress Cardiovascular: Regular Rate, Rhythm, No Edema, No Gallop, No JVD, No Murmur, Normal Peripheral Pulses Gastrointestinal: Normal Bowel Sounds, No Organomegaly, No Pulsatile Mass, Non Tender, Soft Back: Normal Inspection, No CVA Tenderness, No Vertebral Tenderness Extremity: Normal Capillary Refill, Normal Inspection, Normal Range of Motion, Non Tender, No Calf Tenderness, No Pedal Edema Neurologic/Psychiatric: Alert, Oriented x3, No Motor/Sensory Deficits (right leg weak), Normal Mood/Affect, nuclear technician II-XII Norm as Tested, Abnormal Gait, Motor Weakness Skin: Normal Color, Warm/Dry Lymphatic: No Adenopathy Results/Procedures Lab Laboratory Tests 05/19/22 05:32 Patient resulted labs reviewed. FIM Transfers Therapy Code Descriptions/Definitions Functional [place] Measure: 0=Not Assessed/NA 4=Minimal Assistance 1=Total Assistance 5=Supervision or Setup 2=Maximal Assistance 6=Modified [place] 3=Moderate Assistance 7=Complete IndependenceSCALE: Activities may be completed with or without assistive devices. 9-Krdonquseu-kldfpan completes the activity by him/herself with no assistance from a helper. 5-Set-up or Clean-up Assistance-helper sets up or cleans up; patient completes activity. [place] assists only prior to or following the activity. 4-Supervision or Touching Assistance-helper provides verbal cues and/or touching/steadying and/or contact guard assistance as patient completes activity. Assistance may be provided throughout the activity or intermittently. 3-Partial/Moderate Assistance-helper does LESS THAN HALF the effort. [place] lifts, holds or supports trunk or limbs, but provides less than half the effort. 2-Substantial/Maximal Assistance-helper does MORE THAN HALF the effort. [place] lifts or holds trunk or limbs and provides more than half the effort. 6-Zgurmvzni-euvyvg does ALL the effort. Patient does none of the effort to complete the activity. Or, the assistance of 2 or more helpers is required for the patient to complete the activity. If activity was not attempted, code reason: 7-Patient Refused. 9-Not Applicable-not attempted and the patient did not perform the activity before the current illness, exacerbation or injury. 10-Not Attempted due to Environmental Limitations-(lack of equipment, weather restraints, etc.). 88-Not Attempted due to Medical Conditions or Safety Concerns. 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) ADL-Treatment Eating (QC): 5 Oral Hygiene (QC): 3 (min assist needed for balance in standing, set up if completed in sitting.) Shower/Bathe Self (QC): 3 Upper Body Dressing (QC): 5 Lower Body Dressing (QC): 2 On/Off Footwear (QC): 1 Toileting Hygiene (QC): 2 Assessment/Plan Assessment and Plan Assess & Plan/Chief Complaint A/P: Right intertrochanteric femur fracture S/p repair - IM ash Management per Ortho Pain regimen Bowel regimen PT/OT Admitted to IRU Anemia Nausea and vomiting Upper GI bleeding Possibly due to Cecille-Chung tear Hgb stable, monitor Continue Protonix Bowel regimen Add suppository Antiemetics as needed Presumed schizophrenia Maintained on fluphenazine DVT ppx: Lovenox 05/19/2022: Continue current treatment PPI IV to be changed to PO if surgery approves (1) Intertrochanteric fracture of right hip Status: Acute (2) GI bleed Status: Acute (3) Nausea & vomiting Status: Acute (4) Anemia Status: Acute (5) Fall on same level Status: Acute LULA RUBI DO May 19, 2022 06:03
[2022-05-19 06:05] LABS: BILIRUBIN,TOTAL 0.6 MG/DL (0.1-1.0)
[2022-05-19 06:06] LABS: CREATININE SERUM 0.83 MG/DL (0.60-1.30)
[2022-05-19] MEDS: ONDANSETRON 4 MG (ZOFRAN) ORAL DISSOLVE TAB PO PRN (06:46)
[2022-05-19 07:18] VITALS: BP 117/66
[2022-05-19] MEDS: BENZTROPINE MESYLATE 1 MG (COGENTIN) TAB PO SCH ×2 (08:03→20:36)
[2022-05-19] MEDS: ENOXAPARIN 40 MG/0.4 ML (LOVENOX) SYR SC SCH (08:03)
[2022-05-19] MEDS: polyethylene glycoL POWDER 17 GM (MIRALAX) PACK PO SCH ×2 (08:04→19:14)
--- NOTE | 2022-05-19 08:09 | Progress Note ---
Standard Progress Note Progress Notes/Assess & Plan Date Seen by a Provider: May 19, 2022 Time Seen by a Provider: 08:09 Progress/Assessment & Plan no complaints ate some breakfast Vital Signs Date Time Temp Pulse Resp B/P (MAP) Pulse Ox O2 Delivery O2 Flow Rate FiO2 05/19/22 07:18 37.1 99 22 117/66 (83) 96 Room Air 05/18/22 20:21 Room Air 05/18/22 20:12 37.0 103 18 126/66 (86) 97 Room Air 05/18/22 11:22 Room Air I & O 05/19/22 07:00 Intake Total 1460 ml Balance 1460 ml Laboratory Tests Test 05/19/22 05:32 Range/Units White Blood Count 10.6 4.3-11.0 10^3/uL Red Blood Count 2.77 L 4.30-5.52 10^6/uL Hemoglobin 8.4 L 13.3-17.7 g/dL Hematocrit 25 L 40-54 % Mean Corpuscular Volume 91 80-99 fL Mean Corpuscular Hemoglobin 30 25-34 pg Mean Corpuscular Hemoglobin Concent 34 32-36 g/dL Red Cell Distribution Width 12.2 10.0-14.5 % Platelet Count 359 130-400 10^3/uL Mean Platelet Volume 9.1 9.0-12.2 fL Immature Granulocyte % (Auto) 2 % Neutrophils (%) (Auto) 77 H 42-75 % Lymphocytes (%) (Auto) 9 L 12-44 % Monocytes (%) (Auto) 9 0-12 % Eosinophils (%) (Auto) 3 0-10 % Basophils (%) (Auto) 0 0-10 % Neutrophils # (Auto) 8.2 H 1.8-7.8 10^3/uL Lymphocytes # (Auto) 1.0 1.0-4.0 10^3/uL Monocytes # (Auto) 1.0 0.0-1.0 10^3/uL Eosinophils # (Auto) 0.3 0.0-0.3 10^3/uL Basophils # (Auto) 0.0 0.0-0.1 10^3/uL Immature Granulocyte # (Auto) 0.2 H 0.0-0.1 10^3/uL Sodium Level 134 L 135-145 MMOL/L Potassium Level 3.6 3.6-5.0 MMOL/L Chloride Level 101 98-107 MMOL/L Carbon Dioxide Level 21 21-32 MMOL/L Anion Gap 12 5-14 MMOL/L Blood Urea Nitrogen 17 7-18 MG/DL Creatinine 0.83 0.60-1.30 MG/DL Estimat Glomerular Filtration Rate 97 BUN/Creatinine Ratio 20 Glucose Level 128 H 70-105 MG/DL Calcium Level 8.2 L 8.5-10.1 MG/DL Corrected Calcium 9.1 8.5-10.1 MG/DL Total Bilirubin 0.6 0.1-1.0 MG/DL Aspartate Amino Transf (AST/SGOT) 23 5-34 U/L Alanine Aminotransferase (ALT/SGPT) 26 0-55 U/L Alkaline Phosphatase 39 L 40-136 U/L Total Protein 5.7 L 6.4-8.2 GM/DL Albumin 2.9 L 3.2-4.5 GM/DL R hip incision clean and dry s/p R hip IM nail PT/OT RIMA HOLDEN MD May 19, 2022 08:09
[2022-05-19] MEDS: PANTOPRAZOLE 40 MG (PROTONIX) VIAL IV SCH ×2 (08:13→20:36)
[2022-05-19] MEDS: guaiFENesin/CODEINE (ROBITUSSIN AC) 10ML UDC PO PRN ×2 (08:13→20:36)
[2022-05-19] MEDS: SENNA W/DOCUSATE (SENOKOT S) TABLET PO SCH ×2 (08:13→21:19)
[2022-05-19] MEDS: DOCUSATE SODIUM 100 MG (COLACE) CAP PO SCH ×2 (08:14→21:18)
[2022-05-19] MEDS: HYDROcodone/APAP 7.5 MG/325 MG (LORTAB, LORCET PLUS) TABLET PO PRN ×2 (08:14→17:38)
--- NOTE | 2022-05-19 10:27 | Occupational Ther Daily Note ---
OT Current Status-Daily Note Subjective Pt alert, lying in bed. Pt agrees to therapy. No c/o pain at this time. Mental Status/Objective Patient Orientation: Person, Place, Time, Situation Attachments: IV ADL-Treatment Pt agrees to shower. CGA for supine to EOB with HOB raised. Pt ambulated with min A using FWW to bathroom, tendency to walk on R toe with R LE gravitating toward midline. Sitting on shower bench 100% of the time, pt able to complete shower using LH sponge, grabbars and hand held shower to complete with SBA for safety. Pt required assist and education to dry lower legs/feet to adhere to precautions. Pt required assist to doff pants, using science consultant to thread over feet then education to use science consultant to don over feet and assist to hike over hips. Set up for upper body dressing. Education to don socks with sock aide, set up needed and assist to doff. Independent sitting at sink for oral care. Independent to eat. Pt then worked on B UE strengthening while propelling w/c around 2nd floor 1x. After session, pt sitting in w/c with call light/phone in reach. All needs met in room. Therapy Code Descriptions/Definitions Functional [place] Measure: 0=Not Assessed/NA 4=Minimal Assistance 1=Total Assistance 5=Supervision or Setup 2=Maximal Assistance 6=Modified [place] 3=Moderate Assistance 7=Complete IndependenceSCALE: Activities may be completed with or without assistive devices. 3-Oqpactjwkw-bilyeed completes the activity by him/herself with no assistance from a helper. 5-Set-up or Clean-up Assistance-helper sets up or cleans up; patient completes activity. [place] assists only prior to or following the activity. 4-Supervision or Touching Assistance-helper provides verbal cues and/or touching/steadying and/or contact guard assistance as patient completes activity. Assistance may be provided throughout the activity or intermittently. 3-Partial/Moderate Assistance-helper does LESS THAN HALF the effort. [place] lifts, holds or supports trunk or limbs, but provides less than half the effort. 2-Substantial/Maximal Assistance-helper does MORE THAN HALF the effort. [place] lifts or holds trunk or limbs and provides more than half the effort. 2-Zvsiwbken-hshuzu does ALL the effort. Patient does none of the effort to complete the activity. Or, the assistance of 2 or more helpers is required for the patient to complete the activity. If activity was not attempted, code reason: 7-Patient Refused. 9-Not Applicable-not attempted and the patient did not perform the activity before the current illness, exacerbation or injury. 10-Not Attempted due to Environmental Limitations-(lack of equipment, weather restraints, etc.). 88-Not Attempted due to Medical Conditions or Safety Concerns. Eating (QC): 6 Oral Hygiene (QC): 6 Shower/Bathe Self (QC): 3 Upper Body Dressing (QC): 5 Lower Body Dressing (QC): 2 On/Off Footwear: 2 OT Short Term Goals Short Term Goals Time Frame: May 25, 2022 Eatin Oral hygiene: 6 Toileting hygiene: 3 Shower/bathe self: 3 Upper body dressin Lower body dressin Putting on/taking off footwear: 3 OT Long-Term Goals Laundry Supervisor Goals Time Frame: Jun 01, 2022 Acute change in mental status: 0 Inattention: 0 Disorganized thinkin Altered level of consciousness: 0 Eating (QC): 6 Oral Hygiene (QC): 6 Toileting Hygiene (QC): 6 Shower/Bathe Self (QC): 5 Upper Body Dressing (QC): 6 Lower Body Dressing (QC): 5 On/Off Footwear (QC): 5 Additional Goals: 1-Demonstrate ADL Tasks, 2-Verbalize Understanding, 3- ImproveStrength/Jus 1=Demonstrate adherence to instructed precautions during ADL tasks. 2=Patient will verbalize/demonstrate understanding of assistive devices/modifications for ADL. 3=Patient will improve strength/tolerance for activity to enable patient to perform ADL's. OT Education/Plan Problem List/Assessment Assessment: Decreased Activ Tolerance, Decreased UE Strength, Impaired Self- Care Skills Discharge Recommendations Plan/Recommendations: Continue POC Treatment Plan/Plan of Care Patient would benefit from OT for education, treatment and training to promote independence in ADL's, mobility, safety and/or upper extremity function for ADL's. Plan of Care: ADL Retraining, Functional Mobility, Group Exercise/Act as Ind, UE Funct Exercise/Act Treatment Duration: Jun 01, 2022 Frequency: At least 5 of 7 days/Wk (IRF) Estimated Hrs Per Day: 1.5 hours per day Rehab Potential: Fair Time Start Time: 08:30 Stop Time: 10:00 DATE: May 19, 2022 Total Time Billed (hr/min): 90 Billed Treatment Time 1 visit-ADL 5 (70 min) EX 1 (20 min) ROBIN HECK May 19, 2022 10:27
--- NOTE | 2022-05-19 11:27 | ST Cognitive Linguistic Eval ---
Speech Evaluation-General Medical Diagnosis s/p IM Nail Onset Date: May 13, 2022 Therapy Diagnosis Therapy Diagnosis: Baseline Cognition, Mild-Mod Impairment Precautions Precautions: Fall Precautions/Isolations: Fall Prevention, Standard Precautions Referral Referring Physician: Dr. Lewis Reason for Referral: Evaluation/Treatment Medical History Current History The patient is a 66 year-old male with a past medical history of an intellectual disability, who presents to the [facility] s/p ORIF for a right hip fracture. Reviewed History: Yes Social History Current Living Status: Alone Speech PLF-Current Status Prior Level of Function The patient did not report concerns regarding his speech, language, or cognition to the clinician. Per medical chart review, the patient does appear to be at baseline cognition. Subjective The patient was seated upright in his recliner, awake and alert, upon entrance to her room by the clinician. The patient greeted the clinician appropriately and was agreeable to participation in the cognitive linguistic assessment. Language Eval: Auditory Comprehends Simple Yes/No Ques: Functional Indent/Objects Multiple [place]: Functional Follows 1-Step Commands: Functional Follows General Conversations: Functional Language Eval: Verbal Language Completes Spontaneous Greeting: Functional Produces Auto, Serial Info: Functional Imitates Simple Words/Phrases: Functional Word Finding: Functional Requests Basic Needs: Functional States Basic Personal Info: Functional Language Evaluation: Writing Writes to Simple Dictation: Functional Cognitive Patient Orientation The patient was independently oriented to self, location, month, day of the week, and year. Objective Cognitive Domain Attention: WNL Memory: Mild Problem Solving: Moderate Executive Functions: Moderate Composite Severity Rating: Mild Objective Formal/Standardized Tests [facility] Mental Status Exam (UMS) Results The patient demonstrated a result of +15/30 on the SLUMS correlating to a score of "dementia" per protocol. Oral Motor/Speech Production The patient does not display a new onset of dysarthria or apraxia of speech. The patient is 100% intelligible in known and unknown contexts. Impression The patient demonstrated a mild to moderate cognitive impairment per SLUMS. Per patient (and medical chart review), the patient appears to be at cognitive baseline function. Skilled services from speech language pathology are not warranted at this time. Speech-Plan Treatment Plan Speech Therapy Treatment Plan: Discontinue ST (Baseline cognition.) Treatment Duration: May 19, 2022 Frequency: 1 time per week Estimated Hrs Per Day: .5 hour per day Rehab Potential: Fair Safety Risks/Education Teaching Recipient: Patient Teaching Methods: Discussion Response to Teaching: Verbalize Understanding Education Topics Provided: Results, Recommendations, Plan of Care Time Speech Therapy Time In: 10:00 Speech Therapy Time Out: 10:30 DATE: May 19, 2022 Total Billed Time: 30 Billed Treatment Time 1, PASHA KELLY ELIZABETH ST May 19, 2022 11:27
--- NOTE | 2022-05-19 14:25 | Physical Therapy Daily Note ---
PT Daily Note-Current Subjective Pt found sitting in recliner upon entry. Agreed to PT. States that his R hip is very sore but pain has improved a lot since surgery. Reports that he threw up last night but was able to eat most of his breakfast today without issue. Does not rate pain. Pain Section J - Health Conditions 1. Rarely or not at all 2. Occasionally 3. Frequently 4. Almost constantly 8. Unable to answer Pain Effect on Sleep: 4 Pain Interference with Therapy: 4 Pain Interference w/Day-to-Day: 4 Mental Status Patient Orientation: Normal For Age Transfers SCALE: Activities may be completed with or without assistive devices. 3-Rphckscciq-wehqjdw completes the activity by him/herself with no assistance from a helper. 5-Set-up or Clean-up Assistance-helper sets up or cleans up; patient completes activity. [place] assists only prior to or following the activity. 4-Supervision or Touching Assistance-helper provides verbal cues and/or touching/steadying and/or contact guard assistance as patient completes activity. Assistance may be provided throughout the activity or intermittently. 3-Partial/Moderate Assistance-helper does LESS THAN HALF the effort. [place] lifts, holds or supports trunk or limbs, but provides less than half the effort. 2-Substantial/Maximal Assistance-helper does MORE THAN HALF the effort. [place] lifts or holds trunk or limbs and provides more than half the effort. 7-Ebyfqoshb-ouwdyp does ALL the effort. Patient does none of the effort to complete the activity. Or, the assistance of 2 or more helpers is required for the patient to complete the activity. If activity was not attempted, code reason: 7-Patient Refused. 9-Not Applicable-not attempted and the patient did not perform the activity before the current illness, exacerbation or injury. 10-Not Attempted due to Environmental Limitations-(lack of equipment, weather restraints, etc.). 88-Not Attempted due to Medical Conditions or Safety Concerns. Sit to Lying (QC): 3 Sit to Stand (QC): 3 Pt MIN assist /c all trfs. Weight Bearing Right Lower Extremity: Right Touch Toe Bearing Gait Training Does the Patient Walk?: Yes Distance: 20, 30 Walk 10 feet (QC): 4 Gait Assistive Device: FWW Pt CGA /c gait training. Amb. 50ft total. Wheelchair Training Does the Pt Use a Wheelchair?: Yes Wheel 50 ft with 2 turns (QC): 6 Type of Wheelchair: Manual Pt independent /c WC training. Wheeled 100ft total. Exercises Supine Ex: Ankle pumps, Quad Set, Glut sets, Heel Slides, Short Arc Quads, Straight leg raise, Hip abd/add Supine Reps: 10 Seated Therapy Exercises: Long arc quads, Hip abd/add Seated Reps: 5 Pt unable to tolerated seated exercise. AAROM /c supine exercise. Assessment Current Status: Poor Progress Pt demonstrated poor tolerance to Tx. Pt displays limited gait and exercise endurance. ROM of R hip is limited d/t pain. Continue to progress pt as tolera trinity to increase endurance, strength, functional ability, and decrease pain. PT Short Term Goals Short Term Goals Time Frame: May 25, 2022 Roll Left & Right: 4 (SBA) Sit to lyin (SBA) Lying to sitting on side of be: 4 (SBA) Sit to stand: 4 (CGA) Chair/zyl-ta-ibgnb transfer: 4 (SBA) Walk 10 feet: 4 (SBA) Walk 50 feet with two turns: 4 (SBA) Walk 150 feet: 4 (SBA) PT Security Guard Dispatcher Goals Security Guard Dispatcher Goals PT Security Guard Dispatcher Goals Time Frame: Jun 01, 2022 Roll Left & Right (QC): 6 Sit to Lying (QC): 6 Lying-Sitting on Side/Bed(QC): 6 Sit to Stand (QC): 6 Chair/Pef-vi-Yhixu Xfer(QC): 6 Toilet Transfer (QC): 6 Car Transfer (QC): 6 Does the Patient Walk: Yes Walk 10 feet (QC): 6 Walk 50ft with 2 Turns (QC): 6 Walk 150 ft (QC): 6 Walking 10ft on Uneven Surface: 6 1 Step (curb) (QC): 4 4 Steps (QC): 4 12 Steps (QC): 88 Picking up an Object (QC): 6 Wheel 50 feet with 2 turns (QC: 9 Wheel 150 feet: 9 PT Plan Treatment/Plan Treatment Plan: Continue Plan of Care Treatment Plan: Bed Mobility, Education, Functional Activity Jus, Functional Strength, Group Therapy, Gait, Safety, Therapeutic Exercise, Transfers Treatment Duration: Jun 01, 2022 Frequency: At least 5 of 7 days/Wk (IRF) Estimated Hrs Per Day: 1.5 hours per day Patient and/or Family Agrees t: Yes Time Time In: 1030 Time Out: 1130 DATE: May 19, 2022 Total Billed Treatment Time: 60 Total Billed Treatment 1 visit GT 1x FA 1x EX 2x YOHANNES JUAREZ PTA May 19, 2022 14:25
[2022-05-19 21:44] VITALS: BP 141/72
--- NOTE | 2022-05-20 05:03 | Individualized Plan of Care ---
Individualized Plan of Care Rehab Nursing IPOC Order Admission Date May 18, 2022 at 10:30 Current Orders Orders Admission Order(Inpt,Obs,Sdc) (05/18/22 10:14) Vital Signs: Per Unit Policy ( 08,16,00 (05/18/22 10:14) Stew Moreira (05/18/22 10:14) Sequential Compression Device (05/18/22 10:14) Meteorology Instructor-Inpt Rehab Con (05/18/22 10:14) Rehab Nursing Orders-Ipoc (05/18/22 10:14) Physical Therapy Rehab Orders (05/18/22 10:14) Occupational Therapy Rehab Ord (05/18/22 10:14) Speech Therapy Rehab Orders (05/18/22 10:14) Cbc With Automated Diff (05/19/22 06:00) Comprehensive Metabolic Panel (05/19/22 06:00) Precautions (Aru) (05/18/22 10:14) Weekly Weight WEEK (05/18/22 10:14) Rehab-Intensity Of Therapy (05/18/22 10:14) Initiate Admission Nursing Pro .admission (05/18/22 10:14) Alprazolam Tablet (Xanax Tablet) (05/18/22 10:15) Calcium Carbonate Chew Tablet (Antacid C (05/18/22 10:15) Diphenhydramine Tablet (Benadryl Tablet) (05/18/22 10:15) Docusate Sodium Capsule (Colace Capsule) (05/18/22 21:00) Docusate Sodium Capsule (Colace Capsule) (05/18/22 10:15) Bisacodyl Suppository (Dulcolax Supposit (05/18/22 10:15) Lactulose Oral Solution (Enulose Oral So (05/18/22 10:15) Na Phos/Na Biphos Enema (Fleet Enema Jonnie (05/18/22 10:15) Guaifenesin/Codeine Syrup (Robitussin Ac (05/18/22 10:15) Loperamide Tablet (Imodium Tablet) (05/18/22 10:15) Melatonin Tablet (Melatonin Tablet) (05/18/22 10:15) Polyethylene Glycol Powder Pkt (Miralax (12/21/22 21:00) Ondansetron Oral Dissolve Tab (Zofran (05/18/22 10:15) Senna S Tablet (Senokot S Tablet) (05/18/22 21:00) Acetaminophen Tablet/Caplet (Tylenol T (05/18/22 10:15) Code/Resuscitation (05/18/22 10:14) Initiate Admission Nursing Pro .admission (05/18/22 10:14) Admission Arrival Bed Request (05/18/22 10:51) Patient Visit (05/18/22 ) Pt Eval Moderate Complexity (05/18/22 ) Functional Activities, Ea 15 (05/18/22 ) Incentive Spirometry (Nursing) Q2H (05/18/22 17:49) Oxygen-Administer 07,19 (05/18/22 17:49) Stew Hose , (05/18/22 17:49) Turn, Cough, And Deep Breathe (05/18/22 17:49) Benztropine Tablet (Cogentin Tablet) (05/18/22 21:00) Bisacodyl Suppository (Dulcolax Supposit (05/18/22 18:00) Hydrocodone/Apap 7.5/325 Tab (Lortab 7. (05/18/22 18:00) Promethazine Injection (Phenergan Injec (05/18/22 18:00) Received Contrast (Hold Metformin- Contr (05/18/22 18:00) Senna S Tablet (Senokot S Tablet) (05/18/22 21:00) Sodium Chloride Flush (Catheter Flush Sy (05/18/22 18:00) Ondansetron Injection (Zofran Injectio (05/18/22 18:00) Morphine Injection (Morphine Injection (05/18/22 18:00) Incentive Spirometry Initial (05/18/22 17:49) Dressing Order (Intervention) DAILY (05/18/22 17:49) General/Regular (05/18/22 Dinner) Pantoprazole Injection (Protonix Injecti (05/18/22 21:00) Incentive Spirometry (Nursing) Q2H (05/18/22 17:49) Enoxaparin Injection (Lovenox Injection) (05/19/22 08:00) Patient Visit (05/19/22 ) Speech Sound Lang Comp (05/19/22 ) Treat. Speech/Lang/Voice (05/19/22 ) Patient Visit (05/19/22 ) Gait Training, Ea 15 Min (05/19/22 ) Functional Activities, Ea 15 (05/19/22 ) Exercise Therap, Ea 15 Min (05/19/22 ) Iron Test (Fe) (05/19/22 20:16) Vitamin B 12 (05/19/22 20:16) Patient Visit (05/20/22 ) Gait Training, Ea 15 Min (05/20/22 ) Exercise Therap, Ea 15 Min (05/20/22 ) Patient Visit (05/20/22 ) Rehab Nursing Orders: Ongoing Assess. of Cognitive Status, Ongoing Assess. of Function Status, Bladder Management, Bladder Scan, Bladder Training, Bowel Management, Bowel Training, Disease Management & Educaiton, DVT Prophylaxis, Fall Prevention, Fluid/Electrolyte/Nutrition Mgmt, Infection Prevention, Medication Management & Education, Management of Risks & Complications, Nutrition Management, Pain Management, Patient/Family Support, Safety Management, Weight Bearing Precaution Intensity of Therapy to be met Patient to be seen: Min.3h per day/5 of 7d PT IPOC Problem List: Activity Tolerance, Functional Strength, Safety, Balance, Gait, Transfer, Bed Mobility, ROM Treatment Plan: Continue Plan of Care Bed Mobility, Education, Functional Activity Jus, Functional Strength, Group Therapy, Gait, Safety, Therapeutic Exercise, Transfers Treatment Duration: Jun 01, 2022 Frequency: At least 5 of 7 days/Wk (IRF) Estimated Hrs Per Day: 1.5 hours per day OT IPOC Problems: Decreased Activ Tolerance, Decreased UE Strength, Impaired Self-Care Skills OT Treatment, Training and Edu: Yes Plan of Care: ADL Retraining, Functional Mobility, Group Exercise/Act as Ind, UE Funct Exercise/Act Treatment Duration: Jun 01, 2022 Frequency: At least 5 of 7 days/Wk (IRF) Estimated Hrs Per Day: 1.[address] IPOC Speech Therapy Treatment Plan: Discontinue ST (Baseline cognition.) Treatment Duration: May 19, 2022 Frequency: 1 time per week Estimated Hrs Per Day: .5 hour per day Meteorology Instructor/Case Mgmt Meteorology Instructor/Case Managemen: Discharge Planning Dietitian/Tip Stretcher Dietitian/Tip Stretcher to monitor nutritional status and make changes and/or recommendations as needed and work with speech pathology on dietary upgrades as the occur. Physician IPOC Medical Issues being managed closely and that require the 24 hour availability of a physician: Recent femur fracture requiring repair and postop hematemesis with acute blood loss anemia will be at higher risk for decompensation so we will monitor numbers closely Medical Issues: Bowel/Bladder Function, DVT Prophylaxis, Falls Precautions, Fluid/Electrolyte/Nutrition Balance, Infection Protection, Pain Management, Weight Bearing Precautions, Wound Care Brief Synthesis of Preadmission Screen, Post-Admission Evaluation, and Therapy Evaluations: PT and OT will focus on regaining function with use of assistive devices and aggressive rehabilitation in order to return back to independent living Medical Prognosis: Good Anticipated Length of Stay: 7 days LULA RUBI DO May 20, 2022 05:03
--- NOTE | 2022-05-20 05:03 | PM&R Progress Note ---
Subjective HPI/CC On Admission Date Seen by Provider: May 20, 2022 Time Seen by Provider: 12:00 Subjective/Events-last exam 05/20/2022: No major issues Pain is controlled Participating in therapy Supportive care will continue 05/19/2022: Doing very well Pain controlled BM needs to occur so giving meds No falls Slept well last night Review of Systems General: Fatigue, Malaise Objective Exam Vital Signs Vital Signs Date Time Temp Pulse Resp B/P (MAP) Pulse Ox O2 Delivery O2 Flow Rate FiO2 05/20/22 20:43 Room Air 05/20/22 20:02 36.7 96 18 108/60 (76) 95 Capillary Refill : General Appearance: No Apparent Distress, WD/WN HEENT: PERRL/EOMI, Normal ENT Inspection, Pharynx Normal Neck: Full Range of Motion, Normal Inspection, Non Tender, Supple, Carotid Bruit Respiratory: Chest Non Tender, Lungs Clear, Normal Breath Sounds, No Accessory Muscle Use, No Respiratory Distress Cardiovascular: Regular Rate, Rhythm, No Edema, No Gallop, No JVD, No Murmur, Normal Peripheral Pulses Gastrointestinal: Normal Bowel Sounds, No Organomegaly, No Pulsatile Mass, Non Tender, Soft Back: Normal Inspection, No CVA Tenderness, No Vertebral Tenderness Extremity: Normal Capillary Refill, Normal Inspection, Normal Range of Motion, Non Tender, No Calf Tenderness, No Pedal Edema Neurologic/Psychiatric: Alert, Oriented x3, No Motor/Sensory Deficits (right leg weak), Normal Mood/Affect, waste oil pumper II-XII Norm as Tested, Abnormal Gait, Motor Weakness Skin: Normal Color, Warm/Dry Lymphatic: No Adenopathy Results/Procedures Lab Patient resulted labs reviewed. FIM Transfers Therapy Code Descriptions/Definitions Functional [place] Measure: 0=Not Assessed/NA 4=Minimal Assistance 1=Total Assistance 5=Supervision or Setup 2=Maximal Assistance 6=Modified [place] 3=Moderate Assistance 7=Complete IndependenceSCALE: Activities may be completed with or without assistive devices. 3-Hiathkohis-haatkfl completes the activity by him/herself with no assistance from a helper. 5-Set-up or Clean-up Assistance-helper sets up or cleans up; patient completes activity. [place] assists only prior to or following the activity. 4-Supervision or Touching Assistance-helper provides verbal cues and/or touching/steadying and/or contact guard assistance as patient completes activity. Assistance may be provided throughout the activity or intermittently. 3-Partial/Moderate Assistance-helper does LESS THAN HALF the effort. [place] lifts, holds or supports trunk or limbs, but provides less than half the effort. 2-Substantial/Maximal Assistance-helper does MORE THAN HALF the effort. [place] lifts or holds trunk or limbs and provides more than half the effort. 0-Whmbagruf-mvlfuf does ALL the effort. Patient does none of the effort to com plete the activity. Or, the assistance of 2 or more helpers is required for the patient to complete the activity. If activity was not attempted, code reason: 7-Patient Refused. 9-Not Applicable-not attempted and the patient did not perform the activity before the current illness, exacerbation or injury. 10-Not Attempted due to Environmental Limitations-(lack of equipment, weather restraints, etc.). 88-Not Attempted due to Medical Conditions or Safety Concerns. Roll Left to Right (QC): 3 Sit to Lying (QC): 3 Sit to Stand (QC): 3 Chair/Lvi-so-Bwtwj Xfer(QC): 4 Car Transfer (QC): 3 Gait Training Does the Patient Walk?: Yes Distance: 20, 30 Walk 10 feet (QC): 4 Walk 50 ft with 2 Turns(QC): 4 Walk 150 ft (QC): 88 Walking 10ft/uneven surface-QC: 88 Gait Assistive Device: FWW Wheelchair Training Does the Pt Use a Wheelchair?: Yes Distance: 100' Wheel 50 ft with 2 turns (QC): 6 Wheel 150 ft (QC): 88 Type of Wheelchair: Manual Stair Training 1 Step (curb) (QC): 88 4 Steps (QC): 88 12 Steps (QC): 88 Balance Picking up an Object (QC): 4 (CGA using criminal defense lawyer) ADL-Treatment Eating (QC): 6 Oral Hygiene (QC): 6 Shower/Bathe Self (QC): 3 Upper Body Dressing (QC): 5 Lower Body Dressing (QC): 2 On/Off Footwear (QC): 2 Toileting Hygiene (QC): 2 Assessment/Plan Assessment and Plan Assess & Plan/Chief Complaint A/P: Right intertrochanteric femur fracture S/p repair - IM ash Management per Ortho Pain regimen Bowel regimen PT/OT Admitted to IRU Anemia Nausea and vomiting Upper GI bleeding Possibly due to Cecille-Chung tear Hgb stable, monitor Continue Protonix Bowel regimen Add suppository Antiemetics as needed Presumed schizophrenia Maintained on fluphenazine DVT ppx: Lovenox 05/19/2022: Continue current treatment PPI IV to be changed to PO if surgery approves 05/20/2022: Continue monitoring hemoglobin Supportive care (1) Intertrochanteric fracture of right hip Status: Acute (2) GI bleed Status: Acute (3) Nausea & vomiting Status: Acute (4) Anemia Status: Acute (5) Fall on same level Status: Acute LULA RUBI DO May 20, 2022 05:03
--- NOTE | 2022-05-20 07:01 | Progress Note ---
Standard Progress Note Progress Notes/Assess & Plan Date Seen by a Provider: May 20, 2022 Time Seen by a Provider: 07:00 Progress/Assessment & Plan no complaints ate some breakfast Vital Signs Date Time Temp Pulse Resp B/P (MAP) Pulse Ox O2 Delivery O2 Flow Rate FiO2 05/19/22 07:18 37.1 99 22 117/66 (83) 96 Room Air 05/18/22 20:21 Room Air 05/18/22 20:12 37.0 103 18 126/66 (86) 97 Room Air 05/18/22 11:22 Room Air I & O 05/19/22 07:00 Intake Total 1460 ml Balance 1460 ml Laboratory Tests Test 05/19/22 05:32 Range/Units White Blood Count 10.6 4.3-11.0 10^3/uL Red Blood Count 2.77 L 4.30-5.52 10^6/uL Hemoglobin 8.4 L 13.3-17.7 g/dL Hematocrit 25 L 40-54 % Mean Corpuscular Volume 91 80-99 fL Mean Corpuscular Hemoglobin 30 25-34 pg Mean Corpuscular Hemoglobin Concent 34 32-36 g/dL Red Cell Distribution Width 12.2 10.0-14.5 % Platelet Count 359 130-400 10^3/uL Mean Platelet Volume 9.1 9.0-12.2 fL Immature Granulocyte % (Auto) 2 % Neutrophils (%) (Auto) 77 H 42-75 % Lymphocytes (%) (Auto) 9 L 12-44 % Monocytes (%) (Auto) 9 0-12 % Eosinophils (%) (Auto) 3 0-10 % Basophils (%) (Auto) 0 0-10 % Neutrophils # (Auto) 8.2 H 1.8-7.8 10^3/uL Lymphocytes # (Auto) 1.0 1.0-4.0 10^3/uL Monocytes # (Auto) 1.0 0.0-1.0 10^3/uL Eosinophils # (Auto) 0.3 0.0-0.3 10^3/uL Basophils # (Auto) 0.0 0.0-0.1 10^3/uL Immature Granulocyte # (Auto) 0.2 H 0.0-0.1 10^3/uL Sodium Level 134 L 135-145 MMOL/L Potassium Level 3.6 3.6-5.0 MMOL/L Chloride Level 101 98-107 MMOL/L Carbon Dioxide Level 21 21-32 MMOL/L Anion Gap 12 5-14 MMOL/L Blood Urea Nitrogen 17 7-18 MG/DL Creatinine 0.83 0.60-1.30 MG/DL Estimat Glomerular Filtration Rate 97 BUN/Creatinine Ratio 20 Glucose Level 128 H 70-105 MG/DL Calcium Level 8.2 L 8.5-10.1 MG/DL Corrected Calcium 9.1 8.5-10.1 MG/DL Total Bilirubin 0.6 0.1-1.0 MG/DL Aspartate Amino Transf (AST/SGOT) 23 5-34 U/L Alanine Aminotransferase (ALT/SGPT) 26 0-55 U/L Alkaline Phosphatase 39 L 40-136 U/L Total Protein 5.7 L 6.4-8.2 GM/DL Albumin 2.9 L 3.2-4.5 GM/DL R hip incision clean and dry s/p R hip IM nail PT/OT Final Diagnosis feeling better Vital Signs Date Time Temp Pulse Resp B/P (MAP) Pulse Ox O2 Delivery O2 Flow Rate FiO2 05/19/22 21:44 Room Air 05/19/22 21:44 36.5 95 18 141/72 (95) 95 Room Air 05/19/22 08:15 Room Air 05/19/22 07:18 37.1 99 22 117/66 (83) 96 Room Air I & O 05/20/22 07:00 Intake Total 2050 ml Balance 2050 ml R LE incsions healing well no calf tendeness s/p R hip IM ash continue PT/OT IRMA HOLDEN MD May 20, 2022 07:01
[2022-05-20 08:00] VITALS: BP 118/57
[2022-05-20] MEDS: ENOXAPARIN 40 MG/0.4 ML (LOVENOX) SYR SC SCH (08:21)
[2022-05-20] MEDS: BENZTROPINE MESYLATE 1 MG (COGENTIN) TAB PO SCH ×2 (08:22→20:37)
[2022-05-20] MEDS: SENNA W/DOCUSATE (SENOKOT S) TABLET PO SCH ×2 (08:22→20:37)
[2022-05-20] MEDS: DOCUSATE SODIUM 100 MG (COLACE) CAP PO SCH ×2 (08:22→20:37)
[2022-05-20] MEDS: HYDROcodone/APAP 7.5 MG/325 MG (LORTAB, LORCET PLUS) TABLET PO PRN ×2 (08:23→18:08)
[2022-05-20] MEDS: polyethylene glycoL POWDER 17 GM (MIRALAX) PACK PO SCH ×2 (08:23→20:37)
[2022-05-20] MEDS: PANTOPRAZOLE 40 MG (PROTONIX) VIAL IV SCH ×2 (08:25→20:37)
--- NOTE | 2022-05-20 10:02 | Occupational Ther Daily Note ---
OT Current Status-Daily Note Subjective Pt reports 9/10 R hip pain, unsure what time pain meds were given Appearance Pt returned to sitting in recliner, all needs within reach at OT departure. ADL-Treatment Therapy Code Descriptions/Definitions Functional [place] Measure: 0=Not Assessed/NA 4=Minimal Assistance 1=Total Assistance 5=Supervision or Setup 2=Maximal Assistance 6=Modified [place] 3=Moderate Assistance 7=Complete IndependenceSCALE: Activities may be completed with or without assistive devices. 7-Pelxxkgtxz-yggkrgj completes the activity by him/herself with no assistance from a helper. 5-Set-up or Clean-up Assistance-helper sets up or cleans up; patient completes activity. [place] assists only prior to or following the activity. 4-Supervision or Touching Assistance-helper provides verbal cues and/or touching/steadying and/or contact guard assistance as patient completes activity. Assistance may be provided throughout the activity or intermittently. 3-Partial/Moderate Assistance-helper does LESS THAN HALF the effort. [place] lifts, holds or supports trunk or limbs, but provides less than half the effort. 2-Substantial/Maximal Assistance-helper does MORE THAN HALF the effort. [place] lifts or holds trunk or limbs and provides more than half the effort. 9-Zuzvuwcnj-tmztcp does ALL the effort. Patient does none of the effort to complete the activity. Or, the assistance of 2 or more helpers is required for the patient to complete the activity. If activity was not attempted, code reason: 7-Patient Refused. 9-Not Applicable-not attempted and the patient did not perform the activity before the current illness, exacerbation or injury. 10-Not Attempted due to Environmental Limitations-(lack of equipment, weather restraints, etc.). 88-Not Attempted due to Medical Conditions or Safety Concerns. Oral Hygiene (QC): 4 Upper Body Dressing (QC): 5 Toileting Hygiene (QC): 3 Toilet Transfer (QC): 4 Pt requesting to shave rebolledo this date. Extra time required due to thickness/length. Electric and manual razor used. Pt reports owning an electric razor but appears hesitant to initiate and required cues on correct use. Mod a needed for thoroughness. He sat to brush teeth and wash face, again cues needed to start task. Pt will often repeat a question that the therapist just asked prior to responding with an answer. SBA to stand, min reminders on TTWB while ambulating to bathroom. Education OT Patient Education: Correct positioning, Modified ADL techniques, Progress toward Goal/Update tx plan, Purpose of tx/functional activities, Reviewed precautions, Rehab process, Safety issues, Transfer techniques Teaching Recipient: Patient Teaching Methods: Demonstration, Discussion Response to Teaching: Verbalize Understanding, Return Demonstration, Reinforcement Needed OT Short Term Goals Short Term Goals Time Frame: May 25, 2022 Eatin Oral hygiene: 6 Toileting hygiene: 3 Shower/bathe self: 3 Upper body dressin Lower body dressin Putting on/taking off footwear: 3 OT Half-Way Goals Half-Way Goals Time Frame: Jun 01, 2022 Acute change in mental status: 0 Inattention: 0 Disorganized thinkin Altered level of consciousness: 0 Eating (QC): 6 Oral Hygiene (QC): 6 Toileting Hygiene (QC): 6 Shower/Bathe Self (QC): 5 Upper Body Dressing (QC): 6 Lower Body Dressing (QC): 5 On/Off Footwear (QC): 5 Additional Goals: 1-Demonstrate ADL Tasks, 2-Verbalize Understanding, 3- ImproveStrength/Jus 1=Demonstrate adherence to instructed precautions during ADL tasks. 2=Patient will verbalize/demonstrate understanding of assistive devices/modifications for ADL. 3=Patient will improve strength/tolerance for activity to enable patient to perform ADL's. OT Education/Plan Problem List/Assessment Assessment: Decreased Activ Tolerance, Decreased Safety Aware, Impaired Funct Balance, Impaired I ADL's, Impaired Self-Care Skills Discharge Recommendations Plan/Recommendations: Continue POC Equpiment Recommendations-D/C: Storage Worker, Hip Kit, Sock Aide Treatment Plan/Plan of Care Treatment,Training & Education: Yes Patient would benefit from OT for education, treatment and training to promote independence in ADL's, mobility, safety and/or upper extremity function for ADL's. Plan of Care: ADL Retraining, Functional Mobility, Group Exercise/Act as Ind, UE Funct Exercise/Act Treatment Duration: Jun 01, 2022 Frequency: At least 5 of 7 days/Wk (IRF) Estimated Hrs Per Day: 1.5 hours per day Rehab Potential: Fair Time Start Time: 09:00 Stop Time: 10:00 DATE: May 20, 2022 Total Time Billed (hr/min): 60 Billed Treatment Time 1 visit ADL x4 Marina Tuttle OT May 20, 2022 10:02
--- NOTE | 2022-05-20 13:05 | Physical Therapy Daily Note ---
PT Daily Note-Current Subjective Pt found laying in bed upon entry. Agreed to PT. Reports R hip is still sore but has been improving. Does not rate pain. Pain Section J - Health Conditions 1. Rarely or not at all 2. Occasionally 3. Frequently 4. Almost constantly 8. Unable to answer Pain Effect on Sleep: 4 Pain Interference with Therapy: 4 Pain Interference w/Day-to-Day: 4 Mental Status Patient Orientation: Normal For Age Transfers SCALE: Activities may be completed with or without assistive devices. 7-Muqmlycnis-jgwqudp completes the activity by him/herself with no assistance from a helper. 5-Set-up or Clean-up Assistance-helper sets up or cleans up; patient completes activity. [place] assists only prior to or following the activity. 4-Supervision or Touching Assistance-helper provides verbal cues and/or touching/steadying and/or contact guard assistance as patient completes activity. Assistance may be provided throughout the activity or intermittently. 3-Partial/Moderate Assistance-helper does LESS THAN HALF the effort. [place] lifts, holds or supports trunk or limbs, but provides less than half the effort. 2-Substantial/Maximal Assistance-helper does MORE THAN HALF the effort. [place] lifts or holds trunk or limbs and provides more than half the effort. 1-Dkfqtmwxn-vxfjjn does ALL the effort. Patient does none of the effort to complete the activity. Or, the assistance of 2 or more helpers is required for the patient to complete the activity. If activity was not attempted, code reason: 7-Patient Refused. 9-Not Applicable-not attempted and the patient did not perform the activity before the current illness, exacerbation or injury. 10-Not Attempted due to Environmental Limitations-(lack of equipment, weather restraints, etc.). 88-Not Attempted due to Medical Conditions or Safety Concerns. Sit to Stand (QC): 3 Chair/Tto-gz-Fpcnr Xfer(QC): 3 Pt MIN assist /c all trfs. Weight Bearing Right Lower Extremity: Right Touch Toe Bearing Gait Training Does the Patient Walk?: Yes Distance: 50 Walk 10 feet (QC): 4 Walk 50 ft with 2 Turns(QC): 4 Gait Persons Needed: 1 Gait Assistive Device: FWW Pt CGA /c trfs. Amb. 50ft total /c FWW. Wheelchair Training Does the Pt Use a Wheelchair?: Yes Type of Wheelchair: Manual Exercises Seated Therapy Exercises: Ankle pumps, Long arc quads, Hip flexion, Hamstring Curls, Hip abd/add Seated Reps: 10 All exercise AAROM. Assessment Current Status: Poor Progress Pt demonstrated poor tolerance to Tx d/t pain. Pt able to maintain TTWB status but was only able to amb. a short distance. All exercise was completed /c AAROM d/t pain /c muscle contraction. Continue to progress pt as tolerated to improve endurance, strength, functional ability, and decrease pain. PT Short Term Goals Short Term Goals Time Frame: May 25, 2022 Roll Left & Right: 4 (SBA) Sit to lyin (SBA) Lying to sitting on side of be: 4 (SBA) Sit to stand: 4 (CGA) Chair/jjc-wv-xncpn transfer: 4 (SBA) Walk 10 feet: 4 (SBA) Walk 50 feet with two turns: 4 (SBA) Walk 150 feet: 4 (SBA) PT Dish Room Worker Goals Dish Room Worker Goals PT Dish Room Worker Goals Time Frame: Jun 01, 2022 Roll Left & Right (QC): 6 Sit to Lying (QC): 6 Lying-Sitting on Side/Bed(QC): 6 Sit to Stand (QC): 6 Chair/Ual-px-Qeorr Xfer(QC): 6 Toilet Transfer (QC): 6 Car Transfer (QC): 6 Does the Patient Walk: Yes Walk 10 feet (QC): 6 Walk 50ft with 2 Turns (QC): 6 Walk 150 ft (QC): 6 Walking 10ft on Uneven Surface: 6 1 Step (curb) (QC): 4 4 Steps (QC): 4 12 Steps (QC): 88 Picking up an Object (QC): 6 Wheel 50 feet with 2 turns (QC: 9 Wheel 150 feet: 9 PT Plan Treatment/Plan Treatment Plan: Continue Plan of Care Treatment Plan: Bed Mobility, Education, Functional Activity Jus, Functional Strength, Group Therapy, Gait, Safety, Therapeutic Exercise, Transfers Treatment Duration: Jun 01, 2022 Frequency: At least 5 of 7 days/Wk (IRF) Estimated Hrs Per Day: 1.5 hours per day Patient and/or Family Agrees t: Yes Time Time In: 0800 Time Out: 0900 DATE: May 20, 2022 Total Billed Treatment Time: 60 Total Billed Treatment 1 visit GT 1x EX 3x MAJOR,YOHANNES PRINTING MANAGER May 20, 2022 13:05
--- NOTE | 2022-05-20 13:10 | Therapy Group Daily Note ---
Therapy Daily Group Note Patient Education Topic Other List Below (Seasonal Therapeutic Activities) Exercises Fine Motor, UE Exercise Session Ratio (pt:therapist): 6:2 Goal of Session: Education on ARU Expectations, Memory Strategies, UE/LE Strengthing Goal Met for this Session: Yes Pt Benefit of Group: Contributions to Others, Increased Functional Strength, Improved Cognition, Recognition of Peers, Socialization Other/Notes Pt transported via w/c to [facility] for OT/PT group. Group consisted of introductions (name, place living and most interesting [place] present), socialization, B UE fine/gross motor strengthening tasks, ARU description and expectations. Pt introduced self appropriately and actively listened to peers. Pt able to complete fine and gross motor tasks with some set up. Pt then was able to complete cognitive tasks for directional cueing and memory of [place] songs. Pt acknowledged understanding of ARU topic by giving own opinions and answering questions. After group, pt lying in bed with call light/phone in reach. All needs met in room. Start Time: 11:00 Stop Time: 12:10 Total Billed Treatment Time: 70 Total Billed Treatment 1-ROBIN GUZMAN May 20, 2022 13:10
[2022-05-20] MEDS: ONDANSETRON 4 MG (ZOFRAN) ORAL DISSOLVE TAB PO PRN (17:38)
[2022-05-20 20:02] VITALS: BP 108/60
--- NOTE | 2022-05-21 07:59 | Physical Therapy Daily Note ---
PT Daily Note-Current Subjective Upon arrival, Pt was seated in recliner. Pt states that he slept fine and rates his hip pain is an 8. Pt agrees to PT. Pain Numeric Pain Scale: 8 Section J - Health Conditions 1. Rarely or not at all 2. Occasionally 3. Frequently 4. Almost constantly 8. Unable to answer Pain Effect on Sleep: 4 Pain Interference with Therapy: 4 Pain Interference w/Day-to-Day: 4 Mental Status Patient Orientation: Person, Situation Transfers SCALE: Activities may be completed with or without assistive devices. 8-Ncynkccioe-dtaoxuw completes the activity by him/herself with no assistance from a helper. 5-Set-up or Clean-up Assistance-helper sets up or cleans up; patient completes activity. [place] assists only prior to or following the activity. 4-Supervision or Touching Assistance-helper provides verbal cues and/or touching/steadying and/or contact guard assistance as patient completes activity. Assistance may be provided throughout the activity or intermittently. 3-Partial/Moderate Assistance-helper does LESS THAN HALF the effort. [place] lifts, holds or supports trunk or limbs, but provides less than half the effort. 2-Substantial/Maximal Assistance-helper does MORE THAN HALF the effort. [place] lifts or holds trunk or limbs and provides more than half the effort. 9-Dbrmrtwks-iisypp does ALL the effort. Patient does none of the effort to complete the activity. Or, the assistance of 2 or more helpers is required for the patient to complete the activity. If activity was not attempted, code reason: 7-Patient Refused. 9-Not Applicable-not attempted and the patient did not perform the activity before the current illness, exacerbation or injury. 10-Not Attempted due to Environmental Limitations-(lack of equipment, weather restraints, etc.). 88-Not Attempted due to Medical Conditions or Safety Concerns. Sit to Stand (QC): 3 Pt required verbal and tactile cueing to complete sit to stands with proper form. Cued pt to keep weight off affected LE. Pt was CGA and used FWW. Weight Bearing Right Lower Extremity: Right Touch Toe Bearing Gait Training Does the Patient Walk?: No and Walking Goal IS indicated Exercises Supine Ex: Ankle pumps (2x20), Pelvic tilt, Quad Set (3 sets), Glut sets, Heel Slides, Short Arc Quads (L side), Straight leg raise, Hip abd/add Supine Reps: 15 (2 sets) Seated Therapy Exercises: Pelvic tilt, Ankle pumps (2x20), Sit to stand (5x), Long arc quads, Chair press-ups, Hip flexion, Hamstring Curls, Hip abd/add, Glut set Seated Reps: 15 (2 sets) Treatments Pt completed all activities listed above. Pt required rest breaks during activities. Pt required verbal reminder to keep weight off affected limb. Once PT was concluded, pt was seated in recliner with call light and tray in reach and all needs met. Assessment Current Status: Good Progress Pt would benefit from continued skilled PT to address strength, transfers and activity tolerance. PT Short Term Goals Short Term Goals Time Frame: May 25, 2022 Roll Left & Right: 4 (SBA) Sit to lyin (SBA) Lying to sitting on side of be: 4 (SBA) Sit to stand: 4 (CGA) Chair/csj-ug-lghcr transfer: 4 (SBA) Walk 10 feet: 4 (SBA) Walk 50 feet with two turns: 4 (SBA) Walk 150 feet: 4 (SBA) PT Electrolysis Investigator Goals Electrolysis Investigator Goals PT Electrolysis Investigator Goals Time Frame: Jun 01, 2022 Roll Left & Right (QC): 6 Sit to Lying (QC): 6 Lying-Sitting on Side/Bed(QC): 6 Sit to Stand (QC): 6 Chair/Fcp-sp-Vamzf Xfer(QC): 6 Toilet Transfer (QC): 6 Car Transfer (QC): 6 Does the Patient Walk: Yes Walk 10 feet (QC): 6 Walk 50ft with 2 Turns (QC): 6 Walk 150 ft (QC): 6 Walking 10ft on Uneven Surface: 6 1 Step (curb) (QC): 4 4 Steps (QC): 4 12 Steps (QC): 88 Picking up an Object (QC): 6 Wheel 50 feet with 2 turns (QC: 9 Wheel 150 feet: 9 PT Plan Problem List Problem List: Activity Tolerance, Functional Strength, Transfer Treatment/Plan Treatment Plan: Continue Plan of Care Treatment Plan: Bed Mobility, Education, Functional Activity Jus, Functional Strength, Group Therapy, Gait, Safety, Therapeutic Exercise, Transfers Treatment Duration: Jun 01, 2022 Frequency: At least 5 of 7 days/Wk (IRF) Estimated Hrs Per Day: 1.5 hours per day Patient and/or Family Agrees t: Yes Safety Risks/Education Patient Education: Transfer Techniques Teaching Recipient: Patient Teaching Methods: Demonstration, Discussion Response to Teaching: Verbalize Understanding Pt required cueing with completing sit to stands with proper form for safety. Time Time In: 1021 Time Out: 1136 DATE: May 21, 2022 Total Billed Treatment Time: 75 Total Billed Treatment 1, Ex (4) DAVID LOUIS PTA May 21, 2022 07:59
--- NOTE | 2022-05-21 07:59 | Occupational Ther Daily Note ---
OT Current Status-Daily Note Subjective Pt in bed, agreeable to OT tx. Pain rating 8/10 in R hip Mental Status/Objective Patient Orientation: Person, Place, Situation ADL-Treatment Therapy Code Descriptions/Definitions Functional [place] Measure: 0=Not Assessed/NA 4=Minimal Assistance 1=Total Assistance 5=Supervision or Setup 2=Maximal Assistance 6=Modified [place] 3=Moderate Assistance 7=Complete IndependenceSCALE: Activities may be completed with or without assistive devices. 0-Bkkyyijjnb-hqtmzwp completes the activity by him/herself with no assistance from a helper. 5-Set-up or Clean-up Assistance-helper sets up or cleans up; patient completes activity. [place] assists only prior to or following the activity. 4-Supervision or Touching Assistance-helper provides verbal cues and/or touching/steadying and/or contact guard assistance as patient completes activity. Assistance may be provided throughout the activity or intermittently. 3-Partial/Moderate Assistance-helper does LESS THAN HALF the effort. [place] lifts, holds or supports trunk or limbs, but provides less than half the effort. 2-Substantial/Maximal Assistance-helper does MORE THAN HALF the effort. [place] lifts or holds trunk or limbs and provides more than half the effort. 9-Bsngrzvuw-iturih does ALL the effort. Patient does none of the effort to complete the activity. Or, the assistance of 2 or more helpers is required for the patient to complete the activity. If activity was not attempted, code reason: 7-Patient Refused. 9-Not Applicable-not attempted and the patient did not perform the activity be fore the current illness, exacerbation or injury. 10-Not Attempted due to Environmental Limitations-(lack of equipment, weather restraints, etc.). 88-Not Attempted due to Medical Conditions or Safety Concerns. Eating (QC): 6 Oral Hygiene (QC): 4 (SBA-CGA standing at sink) Bathing Location: L Arm, R Arm, L Upper Leg, R Upper Leg, L Lower Leg (including foot), R Lower Leg (including foot), Chest, Abdomen, Buttocks, Perineal Area Shower/Bathe Self (QC): 4 (SBA in stand as pt dries his buttocks. Pt able to wash all other parts seated on SC.) Upper Body Dressing (QC): 5 Lower Body Dressing (QC): 3 (Min A with donning/doffing RLE using AE. Pt able to thread LLE and perform pant hike (CGA in stand)) On/Off Footwear: 3 (Pt required min A to doff/don R gripper sock, able to doff/don L with set up) Toileting Hygiene (QC): 4 (CGA) Other Treatment Pt in bed, min A supine to sit EOB (assist RLE). Pt used FWW to transfer into bathroom, stood at sink using FWW, CGA. Pt completed oral care, SBA-CGA throughout task, then transferred to AK using FWW, CGA. Pt doffed clothes, completed shower, then donned clothes. Pt used AE as needed requiring min VCs for technique. Pt used FWW to return to recliner, CGA. Pt's breakfast had arrived, pt able to eat breakfast IND. Post tx, pt in recliner, call light in reach and all needs met. Education OT Patient Education: Correct positioning, Energy conservation, Modified ADL techniques, Progress toward Goal/Update tx plan, Purpose of tx/functional activities, Rehab process Teaching Recipient: Patient Teaching Methods: Discussion Response to Teaching: Verbalize Understanding OT Short Term Goals Short Term Goals Time Frame: May 25, 2022 Eatin Oral hygiene: 6 Toileting hygiene: 3 Shower/bathe self: 3 Upper body dressin Lower body dressin Putting on/taking off footwear: 3 OT Lending Advisor Goals Lending Advisor Goals Time Frame: Jun 01, 2022 Acute change in mental status: 0 Inattention: 0 Disorganized thinkin Altered level of consciousness: 0 Eating (QC): 6 Oral Hygiene (QC): 6 Toileting Hygiene (QC): 6 Shower/Bathe Self (QC): 5 Upper Body Dressing (QC): 6 Lower Body Dressing (QC): 5 On/Off Footwear (QC): 5 Additional Goals: 1-Demonstrate ADL Tasks, 2-Verbalize Understanding, 3- ImproveStrength/Jus 1=Demonstrate adherence to instructed precautions during ADL tasks. 2=Patient will verbalize/demonstrate understanding of assistive bertram bridgett/modifications for ADL. 3=Patient will improve strength/tolerance for activity to enable patient to perform ADL's. OT Education/Plan Problem List/Assessment Assessment: Decreased Activ Tolerance, Decreased UE Strength, Impaired Funct Balance, Impaired I ADL's, Impaired Self-Care Skills Discharge Recommendations Plan/Recommendations: Continue POC Treatment Plan/Plan of Care Patient would benefit from OT for education, treatment and training to promote independence in ADL's, mobility, safety and/or upper extremity function for ADL' s. Plan of Care: ADL Retraining, Functional Mobility, Group Exercise/Act as Ind, UE Funct Exercise/Act Treatment Duration: Jun 01, 2022 Frequency: At least 5 of 7 days/Wk (IRF) Estimated Hrs Per Day: 1.5 hours per day Rehab Potential: Fair Time Start Time: 07:05 Stop Time: 08:35 DATE: May 21, 2022 Total Time Billed (hr/min): 90 Billed Treatment Time 1, ADL 6 IRENE COLBERT OT May 21, 2022 07:59
[2022-05-21 08:00] VITALS: BP 106/67
--- NOTE | 2022-05-21 08:02 | PM&R Progress Note ---
Subjective HPI/CC On Admission Date Seen by Provider: May 21, 2022 Time Seen by Provider: 12:30 Subjective/Events-last exam 05/21/2022: Patient doing well Pain is well controlled Bowels are moving No concerns 05/20/2022: No major issues Pain is controlled Participating in therapy Supportive care will continue 05/19/2022: Doing very well Pain controlled BM needs to occur so giving meds No falls Slept well last night Review of Systems General: Fatigue, Malaise Musculoskeletal: leg pain Objective Exam Vital Signs Vital Signs Date Time Temp Pulse Resp B/P (MAP) Pulse Ox O2 Delivery O2 Flow Rate FiO2 05/21/22 09:00 Room Air 05/21/22 08:00 36.8 99 20 106/67 (80) 96 Capillary Refill : General Appearance: No Apparent Distress, WD/WN HEENT: PERRL/EOMI, Normal ENT Inspection, Pharynx Normal Neck: Full Range of Motion, Normal Inspection, Non Tender, Supple, Carotid Bruit Respiratory: Chest Non Tender, Lungs Clear, Normal Breath Sounds, No Accessory Muscle Use, No Respiratory Distress Cardiovascular: Regular Rate, Rhythm, No Edema, No Gallop, No JVD, No Murmur, Normal Peripheral Pulses Gastrointestinal: Normal Bowel Sounds, No Organomegaly, No Pulsatile Mass, Non Tender, Soft Back: Normal Inspection, No CVA Tenderness, No Vertebral Tenderness Extremity: Normal Capillary Refill, Normal Inspection, Normal Range of Motion, Non Tender, No Calf Tenderness, No Pedal Edema Neurologic/Psychiatric: Alert, Oriented x3, No Motor/Sensory Deficits, Normal Mood/Affect, 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 FIM Transfers Therapy Code Descriptions/Definitions Functional [place] Measure: 0=Not Assessed/NA 4=Minimal Assistance 1=Total Assistance 5=Supervision or Setup 2=Maximal Assistance 6=Modified [place] 3=Moderate Assistance 7=Complete IndependenceSCALE: Activities may be completed with or without assistive devices. 8-Ihfrbstcka-vxmzfha completes the activity by him/herself with no assistance from a helper. 5-Set-up or Clean-up Assistance-helper sets up or cleans up; patient completes activity. [place] assists only prior to or following the activity. 4-Supervision or Touching Assistance-helper provides verbal cues and/or touching/steadying and/or contact guard assistance as patient completes activity. Assistance may be provided throughout the activity or intermittently. 3-Partial/Moderate Assistance-helper does LESS THAN HALF the effort. [place] lifts, holds or supports trunk or limbs, but provides less than half the effort. 2-Substantial/Maximal Assistance-helper does MORE THAN HALF the effort. [place] lifts or holds trunk or limbs and provides more than half the effort. 1-Adbvcqumh-ljboln does ALL the effort. Patient does none of the effort to complete the activity. Or, the assistance of 2 or more helpers is required for the patient to complete the activity. If activity was not attempted, code reason: 7-Patient Refused. 9-Not Applicable-not attempted and the patient did not perform the activity before the current illness, exacerbation or injury. 10-Not Attempted due to Environmental Limitations-(lack of equipment, weather restraints, etc.). 88-Not Attempted due to Medical Conditions or Safety Concerns. Roll Left to Right (QC): 3 Sit to Lying (QC): 3 Sit to Stand (QC): 3 Chair/Zpx-rs-Yyidz Xfer(QC): 3 Car Transfer (QC): 3 Gait Training Does the Patient Walk?: Yes Distance: 50 Walk 10 feet (QC): 4 Walk 50 ft with 2 Turns(QC): 4 Walk 150 ft (QC): 88 Walking 10ft/uneven surface-QC: 88 Gait Persons Needed: 1 Gait Assistive Device: FWW Wheelchair Training Does the Pt Use a Wheelchair?: Yes Distance: 100' Wheel 50 ft with 2 turns (QC): 6 Wheel 150 ft (QC): 88 Type of Wheelchair: Manual Stair Training 1 Step (curb) (QC): 88 4 Steps (QC): 88 12 Steps (QC): 88 Balance Picking up an Object (QC): 4 (CGA using rn bariatric) ADL-Treatment Eating (QC): 6 Oral Hygiene (QC): 4 (SBA-CGA standing at sink) Bathing Location: L Arm, R Arm, L Upper Leg, R Upper Leg, L Lower Leg (including foot), R Lower Leg (including foot), Chest, Abdomen, Buttocks, Perineal Area Shower/Bathe Self (QC): 4 (SBA in stand as pt dries his buttocks. Pt able to wash all other parts seated on SC.) Upper Body Dressing (QC): 5 Lower Body Dressing (QC): 3 (Min A with donning/doffing RLE using AE. Pt able to thread LLE and perform pant hike (CGA in stand)) On/Off Footwear (QC): 3 (Pt required min A to doff/don R gripper sock, able to doff/don L with set up) Toileting Hygiene (QC): 4 (CGA) Toilet Transfer (QC): 4 Assessment/Plan Assessment and Plan Assess & Plan/Chief Complaint A/P: Right intertrochanteric femur fracture S/p repair - IM ash Management per Ortho Pain regimen Bowel regimen PT/OT Admitted to IRU Anemia Nausea and vomiting Upper GI bleeding Possibly due to Cecille-Chung tear Hgb stable, monitor Continue Protonix Bowel regimen Add suppository Antiemetics as needed Presumed schizophrenia Maintained on fluphenazine DVT ppx: Lovenox 05/19/2022: Continue current treatment PPI IV to be changed to PO if surgery approves 05/20/2022: Continue monitoring hemoglobin Supportive care 05/21/2022: Supportive retirement meds (1) Intertrochanteric fracture of right hip Status: Acute (2) GI bleed Status: Acute (3) Nausea & vomiting Status: Acute (4) Anemia Status: Acute (5) Fall on same level Status: Acute LULA RUBI DO May 21, 2022 08:02
[2022-05-21] MEDS: PANTOPRAZOLE 40 MG (PROTONIX) TAB PO SCH ×2 (08:31→16:18)
[2022-05-21] MEDS: DOCUSATE SODIUM 100 MG (COLACE) CAP PO SCH ×2 (08:31→19:55)
[2022-05-21] MEDS: polyethylene glycoL POWDER 17 GM (MIRALAX) PACK PO SCH ×2 (08:31→21:00)
[2022-05-21] MEDS: SENNA W/DOCUSATE (SENOKOT S) TABLET PO SCH ×2 (08:31→19:54)
[2022-05-21] MEDS: BENZTROPINE MESYLATE 1 MG (COGENTIN) TAB PO SCH ×2 (08:31→19:55)
[2022-05-21] MEDS: ENOXAPARIN 40 MG/0.4 ML (LOVENOX) SYR SC SCH (08:31)
--- NOTE | 2022-05-21 11:54 | Physical Therapy Daily Note ---
PT Daily Note-Current Subjective Pt. seated in chair and agrees to PT. Pain Section J - Health Conditions 1. Rarely or not at all 2. Occasionally 3. Frequently 4. Almost constantly 8. Unable to answer Pain Effect on Sleep: 4 Pain Interference with Therapy: 4 Pain Interference w/Day-to-Day: 4 Mental Status Patient Orientation: Person, Place, Time, Situation Transfers SCALE: Activities may be completed with or without assistive devices. 8-Jbdrtjukzq-ylrybbn completes the activity by him/herself with no assistance from a helper. 5-Set-up or Clean-up Assistance-helper sets up or cleans up; patient completes activity. [place] assists only prior to or following the activity. 4-Supervision or Touching Assistance-helper provides verbal cues and/or touching/steadying and/or contact guard assistance as patient completes activity . Assistance may be provided throughout the activity or intermittently. 3-Partial/Moderate Assistance-helper does LESS THAN HALF the effort. [place] lifts, holds or supports trunk or limbs, but provides less than half the effort. 2-Substantial/Maximal Assistance-helper does MORE THAN HALF the effort. [place] lifts or holds trunk or limbs and provides more than half the effort. 7-Gajravyrn-jbkxsj does ALL the effort. Patient does none of the effort to complete the activity. Or, the assistance of 2 or more helpers is required for the patient to complete the activity. If activity was not attempted, code reason: 7-Patient Refused. 9-Not Applicable-not attempted and the patient did not perform the activity before the current illness, exacerbation or injury. 10-Not Attempted due to Environmental Limitations-(lack of equipment, weather restraints, etc.). 88-Not Attempted due to Medical Conditions or Safety Concerns. Sit to Stand (QC): 4 Weight Bearing Right Lower Extremity: Right Touch Toe Bearing Left Lower Extremity: Left Full Weight Bearing Gait Training Does the Patient Walk?: Yes Distance: 40 ft Walk 10 feet (QC): 4 Gait Persons Needed: 1 Gait Assistive Device: FWW CGA initially/SBA, cues to maintain TTWB on R Treatments gait training Assessment Current Status: Good Progress Pt. fatigues quickly but does maintain near TTWB on R during ambulation. Pt. returned to bedside chair post ambulation, all needs met. PT Short Term Goals Short Term Goals Time Frame: May 25, 2022 Roll Left & Right: 4 (SBA) Sit to lyin (SBA) Lying to sitting on side of be: 4 (SBA) Sit to stand: 4 (CGA) Chair/dct-uc-lcveh transfer: 4 (SBA) Walk 10 feet: 4 (SBA) Walk 50 feet with two turns: 4 (SBA) Walk 150 feet: 4 (SBA) PT Torpedo Specialist Goals Custodial Goals PT Custodial Goals Time Frame: Jun 01, 2022 Roll Left & Right (QC): 6 Sit to Lying (QC): 6 Lying-Sitting on Side/Bed(QC): 6 Sit to Stand (QC): 6 Chair/Duy-wi-Azetf Xfer(QC): 6 Toilet Transfer (QC): 6 Car Transfer (QC): 6 Does the Patient Walk: Yes Walk 10 feet (QC): 6 Walk 50ft with 2 Turns (QC): 6 Walk 150 ft (QC): 6 Walking 10ft on Uneven Surface: 6 1 Step (curb) (QC): 4 4 Steps (QC): 4 12 Steps (QC): 88 Picking up an Object (QC): 6 Wheel 50 feet with 2 turns (QC: 9 Wheel 150 feet: 9 PT Plan Treatment/Plan Treatment Plan: Continue Plan of Care Treatment Plan: Bed Mobility, Education, Functional Activity Jus, Functional Strength, Group Therapy, Gait, Safety, Therapeutic Exercise, Transfers Treatment Duration: Jun 01, 2022 Frequency: At least 5 of 7 days/Wk (IRF) Estimated Hrs Per Day: 1.5 hours per day Patient and/or Family Agrees t: Yes Time Time In: 1138 Time Out: 1153 DATE: May 21, 2022 Total Billed Treatment Time: 15 Total Billed Treatment 1, GT 15' JANA SILVER PT May 21, 2022 11:54
[2022-05-21] MEDS ORDERED: FLUPHENAZINE DECANOATE IJ SCH (16:45)
[2022-05-21 19:50] VITALS: BP 127/60
[2022-05-21] MEDS: HYDROcodone/APAP 7.5 MG/325 MG (LORTAB, LORCET PLUS) TABLET PO PRN (19:55)
[2022-05-21] MEDS: ONDANSETRON 4 MG (ZOFRAN) ORAL DISSOLVE TAB PO PRN (20:20)
--- NOTE | 2022-05-22 06:10 | PM&R Progress Note ---
Subjective HPI/CC On Admission Date Seen by Provider: May 22, 2022 Time Seen by Provider: 12:00 Subjective/Events-last exam 05/22/2022: Patient in a good mood Pain is controlled Bowels are moving 05/21/2022: Patient doing well Pain is well controlled Bowels are moving No concerns 05/20/2022: No major issues Pain is controlled Participating in therapy Supportive care will continue 05/19/2022: Doing very well Pain controlled BM needs to occur so giving meds No falls Slept well last night Review of Systems General: Fatigue, Malaise Objective Exam Vital Signs Vital Signs Date Time Temp Pulse Resp B/P (MAP) Pulse Ox O2 Delivery O2 Flow Rate FiO2 05/22/22 09:00 Room Air 05/22/22 08:31 36.1 84 18 119/69 (86) 95 Capillary Refill : General Appearance: No Apparent Distress, WD/WN HEENT: PERRL/EOMI, Normal ENT Inspection, Pharynx Normal Neck: Full Range of Motion, Normal Inspection, Non Tender, Supple, Carotid Bruit Respiratory: Chest Non Tender, Lungs Clear, Normal Breath Sounds, No Accessory Muscle Use, No Respiratory Distress Cardiovascular: Regular Rate, Rhythm, No Edema, No Gallop, No JVD, No Murmur, Normal Peripheral Pulses Gastrointestinal: Normal Bowel Sounds, No Organomegaly, No Pulsatile Mass, Non Tender, Soft Back: Normal Inspection, No CVA Tenderness, No Vertebral Tenderness Extremity: Normal Capillary Refill, Normal Inspection, Normal Range of Motion, Non Tender, No Calf Tenderness, No Pedal Edema Neurologic/Psychiatric: Alert, Oriented x3, No Motor/Sensory Deficits, Normal Mood/Affect, manager game II-XII Norm as Tested, Abnormal Gait, Motor Weakness Skin: Normal Color, Warm/Dry Lymphatic: No Adenopathy Results/Procedures Lab Patient resulted labs reviewed. FIM Transfers Therapy Code Descriptions/Definitions Functional [place] Measure: 0=Not Assessed/NA 4=Minimal Assistance 1=Total Assistance 5=Supervision or Setup 2=Maximal Assistance 6=Modified [place] 3=Moderate Assistance 7=Complete IndependenceSCALE: Activities may be completed with or without assistive devices. 8-Qqghqgnaqc-eecqytz completes the activity by him/herself with no assistance from a helper. 5-Set-up or Clean-up Assistance-helper sets up or cleans up; patient completes activity. [place] assists only prior to or following the activity. 4-Supervision or Touching Assistance-helper provides verbal cues and/or touching/steadying and/or contact guard assistance as patient completes activity. Assistance may be provided throughout the activity or intermittently. 3-Partial/Moderate Assistance-helper does LESS THAN HALF the effort. [place] lifts, holds or supports trunk or limbs, but provides less than half the effort. 2-Substantial/Maximal Assistance-helper does MORE THAN HALF the effort. [place] lifts or holds trunk or limbs and provides more than half the effort. 7-Nnthhvwbm-pcfbcu does ALL the effort. Patient does none of the effort to complete the activity. Or, the assistance of 2 or more helpers is required for the patient to complete the activity. If activity was not attempted, code reason: 7-Patient Refused. 9-Not Applicable-not attempted and the patient did not perform the activity before the current illness, exacerbation or injury. 10-Not Attempted due to Environmental Limitations-(lack of equipment, weather restraints, etc.). 88-Not Attempted due to Medical Conditions or Safety Concerns. Roll Left to Right (QC): 3 Sit to Lying (QC): 3 Sit to Stand (QC): 3 Chair/Kkg-ck-Xttno Xfer(QC): 3 Car Transfer (QC): 3 Gait Training Does the Patient Walk?: No and Walking Goal IS indicated Distance: 40 ft Walk 10 feet (QC): 4 Walk 50 ft with 2 Turns(QC): 4 Walk 150 ft (QC): 88 Walking 10ft/uneven surface-QC: 88 Gait Persons Needed: 1 Gait Assistive Device: FWW Wheelchair Training Does the Pt Use a Wheelchair?: Yes Distance: 100' Wheel 50 ft with 2 turns (QC): 6 Wheel 150 ft (QC): 88 Type of Wheelchair: Manual Stair Training 1 Step (curb) (QC): 88 4 Steps (QC): 88 12 Steps (QC): 88 Balance Picking up an Object (QC): 4 (CGA using hardware sales assistant) ADL-Treatment Eating (QC): 6 Oral Hygiene (QC): 4 (SBA-CGA standing at sink) Bathing Location: L Arm, R Arm, L Upper Leg, R Upper Leg, L Lower Leg (including foot), R Lower Leg (including foot), Chest, Abdomen, Buttocks, Perineal Area Shower/Bathe Self (QC): 4 (SBA in stand as pt dries his buttocks. Pt able to wash all other parts seated on SC.) Upper Body Dressing (QC): 5 Lower Body Dressing (QC): 3 (Min A with donning/doffing RLE using AE. Pt able to thread LLE and perform pant hike (CGA in stand)) On/Off Footwear (QC): 3 (Pt required min A to doff/don R gripper sock, able to doff/don L with set up) Toileting Hygiene (QC): 4 (CGA) Toilet Transfer (QC): 4 Assessment/Plan Assessment and Plan Assess & Plan/Chief Complaint A/P: Right intertrochanteric femur fracture S/p repair - IM ash Management per Ortho Pain regimen Bowel regimen PT/OT Admitted to IRU Anemia Nausea and vomiting Upper GI bleeding Possibly due to Cecille-Chung tear Hgb stable, monitor Continue Protonix Bowel regimen Add suppository Antiemetics as needed Presumed schizophrenia Maintained on fluphenazine DVT ppx: Lovenox 05/19/2022: Continue current treatment PPI IV to be changed to PO if surgery approves 05/20/2022: Continue monitoring hemoglobin Supportive care 05/21/2022: Supportive longterm meds 05/22/2022: Supportive care Pain control (1) Intertrochanteric fracture of right hip Status: Acute (2) GI bleed Status: Acute (3) Nausea & vomiting Status: Acute (4) Anemia Status: Acute (5) Fall on same level Status: Acute LULA RUBI DO May 22, 2022 06:10
[2022-05-22] MEDS: PANTOPRAZOLE 40 MG (PROTONIX) TAB PO SCH ×2 (06:16→17:00)
[2022-05-22] MEDS: SENNA W/DOCUSATE (SENOKOT S) TABLET PO SCH ×2 (08:27→22:03)
[2022-05-22] MEDS: BENZTROPINE MESYLATE 1 MG (COGENTIN) TAB PO SCH ×2 (08:27→22:03)
[2022-05-22] MEDS: DOCUSATE SODIUM 100 MG (COLACE) CAP PO SCH ×2 (08:27→22:03)
[2022-05-22] MEDS: HYDROcodone/APAP 7.5 MG/325 MG (LORTAB, LORCET PLUS) TABLET PO PRN (08:28)
[2022-05-22] MEDS: polyethylene glycoL POWDER 17 GM (MIRALAX) PACK PO SCH ×2 (08:29→22:03)
[2022-05-22] MEDS: ENOXAPARIN 40 MG/0.4 ML (LOVENOX) SYR SC SCH (08:29)
[2022-05-22 08:31] VITALS: BP 119/69
[2022-05-22 20:00] VITALS: BP 114/61
[2022-05-23 06:15] LABS: BASOPHILS % (AUTO) 1 % (0-10); EOSINOPHILS # (AUTO) 0.2 10^3/uL (0.0-0.3); EOSINOPHILS % (AUTO) 3 % (0-10); HEMATOCRIT 27 % (40-54); HEMOGLOBIN 8.9 g/dL (13.3-17.7); LYMPHOCYTES # (AUTO) 1.5 10^3/uL (1.0-4.0); LYMPHOCYTES % (AUTO) 17 % (12-44); MEAN CORPUSCULAR HEMOGLOBIN 30 pg (25-34); MEAN CORPUSCULAR HGB CONC 33 g/dL (32-36); MEAN CORPUSCULAR VOLUME 92 fL (80-99); MEAN PLATELET VOLUME 8.7 fL (9.0-12.2); MONOCYTES # (AUTO) 0.5 10^3/uL (0.0-1.0); MONOCYTES % (AUTO) 6 % (0-12); NEUTROPHILS # (AUTO) 6.2 10^3/uL (1.8-7.8); NEUTROPHILS % (AUTO) 71 % (42-75); PLATELET COUNT 435 10^3/uL (130-400); WHITE BLOOD COUNT 8.7 10^3/uL (4.3-11.0)
[2022-05-23 06:32] LABS: ALBUMIN 3.1 GM/DL (3.2-4.5); BILIRUBIN,TOTAL 0.5 MG/DL (0.1-1.0); CALCIUM 8.5 MG/DL (8.5-10.1); CREATININE SERUM 0.86 MG/DL (0.60-1.30); TOTAL PROTEIN 6.2 GM/DL (6.4-8.2)
--- NOTE | 2022-05-23 06:52 | PM&R Progress Note ---
Subjective HPI/CC On Admission Date Seen by Provider: May 23, 2022 Time Seen by Provider: 12:00 Subjective/Events-last exam 05/23/2022: Patient in a good mood No other concerns Pain is controlled Labs stable IV iron infusion indicated 05/22/2022: Patient in a good mood Pain is controlled Bowels are moving 05/21/2022: Patient doing well Pain is well controlled Bowels are moving No concerns 05/20/2022: No major issues Pain is controlled Participating in therapy Supportive care will continue 05/19/2022: Doing very well Pain controlled BM needs to occur so giving meds No falls Slept well last night Review of Systems General: Fatigue, Malaise Objective Exam Vital Signs Vital Signs Date Time Temp Pulse Resp B/P (MAP) Pulse Ox O2 Delivery O2 Flow Rate FiO2 05/23/22 20:09 36.8 97 20 115/74 (88) 97 Room Air Capillary Refill : General Appearance: No Apparent Distress, WD/WN HEENT: PERRL/EOMI, Normal ENT Inspection, Pharynx Normal Neck: Full Range of Motion, Normal Inspection, Non Tender, Supple, Carotid Bruit Respiratory: Chest Non Tender, Lungs Clear, Normal Breath Sounds, No Accessory Muscle Use, No Respiratory Distress Cardiovascular: Regular Rate, Rhythm, No Edema, No Gallop, No JVD, No Murmur, Normal Peripheral Pulses Gastrointestinal: Normal Bowel Sounds, No Organomegaly, No Pulsatile Mass, Non Tender, Soft Back: Normal Inspection, No CVA Tenderness, No Vertebral Tenderness Extremity: Normal Capillary Refill, Normal Inspection, Normal Range of Motion, Non Tender, No Calf Tenderness, No Pedal Edema Neurologic/Psychiatric: Alert, Oriented x3, No Motor/Sensory Deficits, Normal Mood/Affect, hadoop architect II-XII Norm as Tested, Abnormal Gait, Motor Weakness Skin: Normal Color, Warm/Dry Lymphatic: No Adenopathy Results/Procedures Lab Laboratory Tests 05/23/22 06:00 Patient resulted labs reviewed. FIM Transfers Therapy Code Descriptions/Definitions Functional [place] Measure: 0=Not Assessed/NA 4=Minimal Assistance 1=Total Assistance 5=Supervision or Setup 2=Maximal Assistance 6=Modified [place] 3=Moderate Assistance 7=Complete IndependenceSCALE: Activities may be completed with or without assistive devices. 9-Bynamzvrfn-amxxitv completes the activity by him/herself with no assistance from a helper. 5-Set-up or Clean-up Assistance-helper sets up or cleans up; patient completes activity. [place] assists only prior to or following the activity. 4-Supervision or Touching Assistance-helper provides verbal cues and/or touching/steadying and/or contact guard assistance as patient completes activity. Assistance may be provided throughout the activity or intermittently. 3-Partial/Moderate Assistance-helper does LESS THAN HALF the effort. [place] lift s, holds or supports trunk or limbs, but provides less than half the effort. 2-Substantial/Maximal Assistance-helper does MORE THAN HALF the effort. [place] lifts or holds trunk or limbs and provides more than half the effort. 6-Ugheoqczc-pbbfvx does ALL the effort. Patient does none of the effort to complete the activity. Or, the assistance of 2 or more helpers is required for the patient to complete the activity. If activity was not attempted, code reason: 7-Patient Refused. 9-Not Applicable-not attempted and the patient did not perform the activity before the current illness, exacerbation or injury. 10-Not Attempted due to Environmental Limitations-(lack of equipment, weather restraints, etc.). 88-Not Attempted due to Medical Conditions or Safety Concerns. Roll Left to Right (QC): 3 Sit to Lying (QC): 3 Sit to Stand (QC): 3 Chair/Opw-vt-Stuvs Xfer(QC): 3 Car Transfer (QC): 3 Gait Training Does the Patient Walk?: No and Walking Goal IS indicated Distance: 40 ft Walk 10 feet (QC): 4 Walk 50 ft with 2 Turns(QC): 4 Walk 150 ft (QC): 88 Walking 10ft/uneven surface-QC: 88 Gait Persons Needed: 1 Gait Assistive Device: FWW Wheelchair Training Does the Pt Use a Wheelchair?: Yes Distance: 100' Wheel 50 ft with 2 turns (QC): 6 Wheel 150 ft (QC): 88 Type of Wheelchair: Manual Stair Training 1 Step (curb) (QC): 88 4 Steps (QC): 88 12 Steps (QC): 88 Balance Picking up an Object (QC): 4 (CGA using inside sales administrator) ADL-Treatment Eating (QC): 6 Oral Hygiene (QC): 4 (SBA-CGA standing at sink) Bathing Location: L Arm, R Arm, L Upper Leg, R Upper Leg, L Lower Leg (including foot), R Lower Leg (including foot), Chest, Abdomen, Buttocks, Perineal Area Shower/Bathe Self (QC): 4 (SBA in stand as pt dries his buttocks. Pt able to wash all other parts seated on SC.) Upper Body Dressing (QC): 5 Lower Body Dressing (QC): 3 (Min A with donning/doffing RLE using AE. Pt able to thread LLE and perform pant hike (CGA in stand)) On/Off Footwear (QC): 3 (Pt required min A to doff/don R gripper sock, able to doff/don L with set up) Toileting Hygiene (QC): 4 (CGA) Toilet Transfer (QC): 4 Assessment/Plan Assessment and Plan Assess & Plan/Chief Complaint A/P: Right intertrochanteric femur fracture S/p repair - IM ash Management per Ortho Pain regimen Bowel regimen PT/OT Admitted to IRU Anemia Nausea and vomiting Upper GI bleeding Possibly due to Cecille-Chung tear Hgb stable, monitor Continue Protonix Bowel regimen Add suppository Antiemetics as needed Presumed schizophrenia Maintained on fluphenazine DVT ppx: Lovenox 05/19/2022: Continue current treatment PPI IV to be changed to PO if surgery approves 05/20/2022: Continue monitoring hemoglobin Supportive care 05/21/2022: Supportive skilled nursing meds 05/22/2022: Supportive care Pain control 05/23/2022: IV iron infusions (1) Intertrochanteric fracture of right hip Status: Acute (2) GI bleed Status: Acute (3) Nausea & vomiting Status: Acute (4) Anemia Status: Acute (5) Fall on same level Status: Acute LULA RUBI DO May 23, 2022 06:52
[2022-05-23] MEDS: PANTOPRAZOLE 40 MG (PROTONIX) TAB PO SCH ×2 (06:57→17:04)
[2022-05-23 07:32] VITALS: BP 119/74
[2022-05-23] MEDS: ONDANSETRON 4 MG (ZOFRAN) ORAL DISSOLVE TAB PO PRN (07:34)
[2022-05-23] MEDS: SENNA W/DOCUSATE (SENOKOT S) TABLET PO SCH ×2 (08:08→21:22)
[2022-05-23] MEDS: DOCUSATE SODIUM 100 MG (COLACE) CAP PO SCH ×2 (08:08→21:21)
[2022-05-23] MEDS: BENZTROPINE MESYLATE 1 MG (COGENTIN) TAB PO SCH ×2 (08:08→21:22)
[2022-05-23] MEDS: polyethylene glycoL POWDER 17 GM (MIRALAX) PACK PO SCH ×2 (08:10→21:21)
[2022-05-23] MEDS: ENOXAPARIN 40 MG/0.4 ML (LOVENOX) SYR SC SCH (08:10)
[2022-05-23] MEDS: IRON SUCROSE 200 MG/10 ML (VENOFER) VIAL IV SCH (08:34)
[2022-05-23] MEDS: HYDROcodone/APAP 7.5 MG/325 MG (LORTAB, LORCET PLUS) TABLET PO PRN (08:50)
--- NOTE | 2022-05-23 10:33 | Occupational Ther Daily Note ---
OT Current Status-Daily Note Subjective Pt alert, sitting in recliner. Pt agrees to therapy. No c/o pain at this time. Mental Status/Objective Patient Orientation: Person, Place, Time, Situation Attachments: IV ADL-Treatment Pt declines shower. Agrees to changing clothing and completing oral care/grooming. Pt ambulates to closet then sits in w/c to gather clothing. Propels w/c to bathroom. Pt sits at sink, to complete oral care and grooming by self. Independent upper body dressing. VC and SBA for lower body dressing. Independent socks using AE. After session, pt sitting in recliner with call light/phone in reach. All needs met in room. Therapy Code Descriptions/Definitions Functional [place] Measure: 0=Not Assessed/NA 4=Minimal Assistance 1=Total Assistance 5=Supervision or Setup 2=Maximal Assistance 6=Modified [place] 3=Moderate Assistance 7=Complete IndependenceSCALE: Activities may be completed with or without assistive devices. 1-Dtbsnzrnlf-gkywfza completes the activity by him/herself with no assistance from a helper. 5-Set-up or Clean-up Assistance-helper sets up or cleans up; patient completes activity. [place] assists only prior to or following the activity. 4-Supervision or Touching Assistance-helper provides verbal cues and/or touching/steadying and/or contact guard assistance as patient completes activity. Assistance may be provided throughout the activity or intermittently. 3-Partial/Moderate Assistance-helper does LESS THAN HALF the effort. [place] lifts, holds or supports trunk or limbs, but provides less than half the effort. 2-Substantial/Maximal Assistance-helper does MORE THAN HALF the effort. [place] lifts or holds trunk or limbs and provides more than half the effort. 7-Sglgzlies-kovhlj does ALL the effort. Patient does none of the effort to complete the activity. Or, the assistance of 2 or more helpers is required for the patient to complete the activity. If activity was not attempted, code reason: 7-Patient Refused. 9-Not Applicable-not attempted and the patient did not perform the activity before the current illness, exacerbation or injury. 10-Not Attempted due to Environmental Limitations-(lack of equipment, weather restraints, etc.). 88-Not Attempted due to Medical Conditions or Safety Concerns. Eating (QC): 6 Oral Hygiene (QC): 6 Upper Body Dressing (QC): 6 Lower Body Dressing (QC): 4 On/Off Footwear: 6 OT Short Term Goals Short Term Goals Time Frame: May 25, 2022 Eatin Oral hygiene: 6 Toileting hygiene: 3 Shower/bathe self: 3 Upper body dressin Lower body dressin Putting on/taking off footwear: 3 OT Prison Goals Prison Goals Time Frame: Jun 01, 2022 Acute change in mental status: 0 Inattention: 0 Disorganized thinkin Altered level of consciousness: 0 Eating (QC): 6 Oral Hygiene (QC): 6 Toileting Hygiene (QC): 6 Shower/Bathe Self (QC): 5 Upper Body Dressing (QC): 6 Lower Body Dressing (QC): 5 On/Off Footwear (QC): 5 Additional Goals: 1-Demonstrate ADL Tasks, 2-Verbalize Understanding, 3- ImproveStrength/Jus 1=Demonstrate adherence to instructed precautions during ADL tasks. 2=Patient will verbalize/demonstrate understanding of assistive devices/modifications for ADL. 3=Patient will improve strength/tolerance for activity to enable patient to perform ADL's. OT Education/Plan Problem List/Assessment Assessment: Decreased Activ Tolerance, Impaired Cognition, Impaired Self-Care Skills Discharge Recommendations Plan/Recommendations: Continue POC Treatment Plan/Plan of Care Patient would benefit from OT for education, treatment and training to promote independence in ADL's, mobility, safety and/or upper extremity function for ADL' s. Plan of Care: ADL Retraining, Functional Mobility, Group Exercise/Act as Ind, UE Funct Exercise/Act Treatment Duration: Jun 01, 2022 Frequency: At least 5 of 7 days/Wk (IRF) Estimated Hrs Per Day: 1.5 hours per day Rehab Potential: Fair Time Start Time: 09:45 Stop Time: 11:00 DATE: May 23, 2022 Total Time Billed (hr/min): 75 Billed Treatment Time 1 visit-ADL 5 (75 min) ROBIN HECK May 23, 2022 10:33
--- NOTE | 2022-05-23 12:58 | Physical Therapy Daily Note ---
PT Daily Note-Current Subjective Pt found seated in recliner upon entry. Agreed to PT. States that his R hip is still sore but is feeling a little better. Does not rate pain. Pain Section J - Health Conditions 1. Rarely or not at all 2. Occasionally 3. Frequently 4. Almost constantly 8. Unable to answer Pain Effect on Sleep: 4 Pain Interference with Therapy: 4 Pain Interference w/Day-to-Day: 4 Mental Status Patient Orientation: Normal For Age Transfers SCALE: Activities may be completed with or without assistive devices. 3-Qtniphgrfo-yiwtmbl completes the activity by him/herself with no assistance from a helper. 5-Set-up or Clean-up Assistance-helper sets up or cleans up; patient completes activity. [place] assists only prior to or following the activity. 4-Supervision or Touching Assistance-helper provides verbal cues and/or touching/steadying and/or contact guard assistance as patient completes activity. Assistance may be provided throughout the activity or intermittently. 3-Partial/Moderate Assistance-helper does LESS THAN HALF the effort. [place] lifts, holds or supports trunk or limbs, but provides less than half the effort. 2-Substantial/Maximal Assistance-helper does MORE THAN HALF the effort. [place] lifts or holds trunk or limbs and provides more than half the effort. 3-Hcmornidy-ykrtye does ALL the effort. Patient does none of the effort to complete the activity. Or, the assistance of 2 or more helpers is required for the patient to complete the activity. If activity was not attempted, code reason: 7-Patient Refused. 9-Not Applicable-not attempted and the patient did not perform the activity before the current illness, exacerbation or injury. 10-Not Attempted due to Environmental Limitations-(lack of equipment, weather restraints, etc.). 88-Not Attempted due to Medical Conditions or Safety Concerns. Sit to Stand (QC): 4 Pt CGA /c sit<->stand trfs. Weight Bearing Right Lower Extremity: Right Touch Toe Bearing Left Lower Extremity: Left Full Weight Bearing Gait Training Does the Patient Walk?: Yes Distance: 40 Walk 10 feet (QC): 4 Gait Persons Needed: 1 Gait Assistive Device: FWW Pt CGA /c gait training. Amb. 40ft total /c FWW. Wheelchair Training Does the Pt Use a Wheelchair?: No Exercises Supine Ex: Ankle pumps, Quad Set, Glut sets, Heel Slides, Straight leg raise, Hip abd/add Supine Reps: 15 Pt tolerated exercise well /c no report of increased pain. Assessment Current Status: Poor Progress Pt unable to progress to seated exercise. AAROM /c SLR and hip abd. R hip soreness preventing patient to move through full ROM. Continue to progress pt as tolerated per POC to increase strength, endurance, functional ability, and decrease pain. PT Short Term Goals Short Term Goals Time Frame: May 25, 2022 Roll Left & Right: 4 (SBA) Sit to lyin (SBA) Lying to sitting on side of be: 4 (SBA) Sit to stand: 4 (CGA) Chair/cdv-sq-oakaq transfer: 4 (SBA) Walk 10 feet: 4 (SBA) Walk 50 feet with two turns: 4 (SBA) Walk 150 feet: 4 (SBA) PT Retirement Goals [employer] Supervisor Goals PT Retirement Goals Time Frame: Jun 01, 2022 Roll Left & Right (QC): 6 Sit to Lying (QC): 6 Lying-Sitting on Side/Bed(QC): 6 Sit to Stand (QC): 6 Chair/Qmx-uw-Fbapu Xfer(QC): 6 Toilet Transfer (QC): 6 Car Transfer (QC): 6 Does the Patient Walk: Yes Walk 10 feet (QC): 6 Walk 50ft with 2 Turns (QC): 6 Walk 150 ft (QC): 6 Walking 10ft on Uneven Surface: 6 1 Step (curb) (QC): 4 4 Steps (QC): 4 12 Steps (QC): 88 Picking up an Object (QC): 6 Wheel 50 feet with 2 turns (QC: 9 Wheel 150 feet: 9 PT Plan Treatment/Plan Treatment Plan: Continue Plan of Care Treatment Plan: Bed Mobility, Education, Functional Activity Jus, Functional Strength, Group Therapy, Gait, Safety, Therapeutic Exercise, Transfers Treatment Duration: Jun 01, 2022 Frequency: At least 5 of 7 days/Wk (IRF) Estimated Hrs Per Day: 1.5 hours per day Patient and/or Family Agrees t: Yes Time Time In: 1100 Time Out: 1200 DATE: May 23, 2022 Total Billed Treatment Time: 60 Total Billed Treatment 1 visit GT 1x EX 3x MAJOR,YOHANNES RAG BOILER May 23, 2022 12:58
--- NOTE | 2022-05-23 13:17 | Occupational Ther Daily Note ---
OT Current Status-Daily Note Subjective Pt alert, sitting in recliner. Pt agrees to therapy. No c/o pain. Mental Status/Objective Patient Orientation: Person, Place, Time, Situation Attachments: IV ADL-Treatment Therapy Code Descriptions/Definitions Functional [place] Measure: 0=Not Assessed/NA 4=Minimal Assistance 1=Total Assistance 5=Supervision or Setup 2=Maximal Assistance 6=Modified [place] 3=Moderate Assistance 7=Complete IndependenceSCALE: Activities may be completed with or without assistive devices. 4-Dreixxiqlm-rhyhphk completes the activity by him/herself with no assistance from a helper. 5-Set-up or Clean-up Assistance-helper sets up or cleans up; patient completes activity. [place] assists only prior to or following the activity. 4-Supervision or Touching Assistance-helper provides verbal cues and/or touching/steadying and/or contact guard assistance as patient completes activity. Assistance may be provided throughout the activity or intermittently. 3-Partial/Moderate Assistance-helper does LESS THAN HALF the effort. [place] li fts, holds or supports trunk or limbs, but provides less than half the effort. 2-Substantial/Maximal Assistance-helper does MORE THAN HALF the effort. [place] lifts or holds trunk or limbs and provides more than half the effort. 7-Lnclhahrw-jhheif does ALL the effort. Patient does none of the effort to complete the activity. Or, the assistance of 2 or more helpers is required for the patient to complete the activity. If activity was not attempted, code reason: 7-Patient Refused. 9-Not Applicable-not attempted and the patient did not perform the activity before the current illness, exacerbation or injury. 10-Not Attempted due to Environmental Limitations-(lack of equipment, weather restraints, etc.). 88-Not Attempted due to Medical Conditions or Safety Concerns. Other Treatment Pt given heavy resistance theraband and exercises to use in room. Skilled instruction for correct technique and modifications when needed. Pt completed 1 set 10 reps of 3 exercises then was able to remember 2 of 3 exercises without cues then gestural cues to remember 3rd. After therapy, pt sitting in recliner with call light/phone in reach. All needs met in room. OT Short Term Goals Short Term Goals Time Frame: May 25, 2022 Eatin Oral hygiene: 6 Toileting hygiene: 3 Shower/bathe self: 3 Upper body dressin Lower body dressin Putting on/taking off footwear: 3 OT Instrument Repairer [employer] Goals Instrument Repairer [employer] Goals Time Frame: Jun 01, 2022 Acute change in mental status: 0 Inattention: 0 Disorganized thinkin Altered level of consciousness: 0 Eating (QC): 6 Oral Hygiene (QC): 6 Toileting Hygiene (QC): 6 Shower/Bathe Self (QC): 5 Upper Body Dressing (QC): 6 Lower Body Dressing (QC): 5 On/Off Footwear (QC): 5 Additional Goals: 1-Demonstrate ADL Tasks, 2-Verbalize Understanding, 3- ImproveStrength/Jus 1=Demonstrate adherence to instructed precautions during ADL tasks. 2=Patient will verbalize/demonstrate understanding of assistive devices/modifications for ADL. 3=Patient will improve strength/tolerance for activity to enable patient to perform ADL's. OT Education/Plan Discharge Recommendations Plan/Recommendations: Continue POC Treatment Plan/Plan of Care Patient would benefit from OT for education, treatment and training to promote independence in ADL's, mobility, safety and/or upper extremity function for ADL's. Plan of Care: ADL Retraining, Functional Mobility, Group Exercise/Act as Ind, UE Funct Exercise/Act Treatment Duration: Jun 01, 2022 Frequency: At least 5 of 7 days/Wk (IRF) Estimated Hrs Per Day: 1.5 hours per day Rehab Potential: Fair Time Start Time: 13:00 Stop Time: 13:15 DATE: May 23, 2022 Total Time Billed (hr/min): 15 Billed Treatment Time 1 visit-EX 1 (15 min) ROBIN HECK May 23, 2022 13:17
--- NOTE | 2022-05-23 15:17 | Physical Therapy Daily Note ---
PT Daily Note-Current Subjective Pt found laying in bed upon entry. Agreed to PT. States that R hip is still sore but is slowly getting better. Does not rate pain. Pain Section J - Health Conditions 1. Rarely or not at all 2. Occasionally 3. Frequently 4. Almost constantly 8. Unable to answer Pain Effect on Sleep: 4 Pain Interference with Therapy: 4 Pain Interference w/Day-to-Day: 4 Mental Status Patient Orientation: Normal For Age Transfers SCALE: Activities may be completed with or without assistive devices. 6-Corvveqdja-txcubvb completes the activity by him/herself with no assistance from a helper. 5-Set-up or Clean-up Assistance-helper sets up or cleans up; patient completes activity. [place] assists only prior to or following the activity. 4-Supervision or Touching Assistance-helper provides verbal cues and/or alexia yosef/steadying and/or contact guard assistance as patient completes activity. Assistance may be provided throughout the activity or intermittently. 3-Partial/Moderate Assistance-helper does LESS THAN HALF the effort. [place] lifts, holds or supports trunk or limbs, but provides less than half the effort. 2-Substantial/Maximal Assistance-helper does MORE THAN HALF the effort. [place] lifts or holds trunk or limbs and provides more than half the effort. 1-Nhkjyuscy-utzrir does ALL the effort. Patient does none of the effort to complete the activity. Or, the assistance of 2 or more helpers is required for the patient to complete the activity. If activity was not attempted, code reason: 7-Patient Refused. 9-Not Applicable-not attempted and the patient did not perform the activity before the current illness, exacerbation or injury. 10-Not Attempted due to Environmental Limitations-(lack of equipment, weather restraints, etc.). 88-Not Attempted due to Medical Conditions or Safety Concerns. Sit to Stand (QC): 4 Pt CGA /c sit<->stand trfs. Weight Bearing Right Lower Extremity: Right Touch Toe Bearing Left Lower Extremity: Left Full Weight Bearing Gait Training Does the Patient Walk?: Yes Distance: 50 Walk 10 feet (QC): 4 Walk 50 ft with 2 Turns(QC): 4 Gait Persons Needed: 1 Gait Assistive Device: FWW Pt CGA /c gait training. Amb. 50ft total. Wheelchair Training Does the Pt Use a Wheelchair?: No Exercises Supine Ex: Ankle pumps, Heel Slides, Straight leg raise, Hip abd/add Supine Reps: 10 Pt tolerated exercise well /c no report of increased pain. Assessment Current Status: Fair Progress Pt gait distance has improved this visit. Pt able to maintain TTWB status. Displays signs of R hip pain throughout Tx. Continue to progress pt as tolerated per POC to increase strength, endurance, functional ability, and decrease pain. PT Short Term Goals Short Term Goals Time Frame: May 25, 2022 Roll Left & Right: 4 (SBA) Sit to lyin (SBA) Lying to sitting on side of be: 4 (SBA) Sit to stand: 4 (CGA) Chair/zwq-nz-fkzfs transfer: 4 (SBA) Walk 10 feet: 4 (SBA) Walk 50 feet with two turns: 4 (SBA) Walk 150 feet: 4 (SBA) PT Mcfp Goals Mcfp Goals PT Chiropractic Teacher Goals Time Frame: Jun 01, 2022 Roll Left & Right (QC): 6 Sit to Lying (QC): 6 Lying-Sitting on Side/Bed(QC): 6 Sit to Stand (QC): 6 Chair/Fld-sg-Jikuv Xfer(QC): 6 Toilet Transfer (QC): 6 Car Transfer (QC): 6 Does the Patient Walk: Yes Walk 10 feet (QC): 6 Walk 50ft with 2 Turns (QC): 6 Walk 150 ft (QC): 6 Walking 10ft on Uneven Surface: 6 1 Step (curb) (QC): 4 4 Steps (QC): 4 12 Steps (QC): 88 Picking up an Object (QC): 6 Wheel 50 feet with 2 turns (QC: 9 Wheel 150 feet: 9 PT Plan Treatment/Plan Treatment Plan: Continue Plan of Care Treatment Plan: Bed Mobility, Education, Functional Activity Jus, Functional Strength, Group Therapy, Gait, Safety, Therapeutic Exercise, Transfers Treatment Duration: Jun 01, 2022 Frequency: At least 5 of 7 days/Wk (IRF) Estimated Hrs Per Day: 1.5 hours per day Patient and/or Family Agrees t: Yes Time Time In: 1430 Time Out: 1500 DATE: May 23, 2022 Total Billed Treatment Time: 30 Total Billed Treatment 1 visit GT 1x EX 1x MAJOR,YOHANNES CIVIL DESIGNER May 23, 2022 15:17
[2022-05-23] MEDS: LACTULOSE SYRUP 10GM/15ML (ENULOSE) 30ML UDC PO PRN (17:06)
[2022-05-23 20:09] VITALS: BP 115/74
--- NOTE | 2022-05-24 05:07 | PM&R Progress Note ---
Subjective HPI/CC On Admission Date Seen by Provider: May 24, 2022 Time Seen by Provider: 09:00 Subjective/Events-last exam 05/24/2022: No major issues Pain controlled Iron infusions tolerated 05/23/2022: Patient in a good mood No other concerns Pain is controlled Labs stable IV iron infusion indicated 05/22/2022: Patient in a good mood Pain is controlled Bowels are moving 05/21/2022: Patient doing well Pain is well controlled Bowels are moving No concerns 05/20/2022: No major issues Pain is controlled Participating in therapy Supportive care will continue 05/19/2022: Doing very well Pain controlled BM needs to occur so giving meds No falls Slept well last night Review of Systems General: Fatigue, Malaise Musculoskeletal: leg pain Objective Exam Vital Signs Vital Signs Date Time Temp Pulse Resp B/P (MAP) Pulse Ox O2 Delivery O2 Flow Rate FiO2 05/24/22 21:20 Room Air 05/24/22 20:04 36.6 90 20 111/73 (86) 98 Capillary Refill : General Appearance: No Apparent Distress, WD/WN HEENT: PERRL/EOMI, Normal ENT Inspection, Pharynx Normal Neck: Full Range of Motion, Normal Inspection, Non Tender, Supple, Carotid Bruit Respiratory: Chest Non Tender, Lungs Clear, Normal Breath Sounds, No Accessory Muscle Use, No Respiratory Distress Cardiovascular: Regular Rate, Rhythm, No Edema, No Gallop, No JVD, No Murmur, Normal Peripheral Pulses Gastrointestinal: Normal Bowel Sounds, No Organomegaly, No Pulsatile Mass, Non Tender, Soft Back: Normal Inspection, No CVA Tenderness, No Vertebral Tenderness Extremity: Normal Capillary Refill, Normal Inspection, Normal Range of Motion, Non Tender, No Calf Tenderness, No Pedal Edema Neurologic/Psychiatric: Alert, Oriented x3, No Motor/Sensory Deficits, Normal Mood/Affect, services host II-XII Norm as Tested, Abnormal Gait, Motor Weakness Skin: Normal Color, Warm/Dry Lymphatic: No Adenopathy Results/Procedures Lab Patient resulted labs reviewed. FIM Transfers Therapy Code Descriptions/Definitions Functional [place] Measure: 0=Not Assessed/NA 4=Minimal Assistance 1=Total Assistance 5=Supervision or Setup 2=Maximal Assistance 6=Modified [place] 3=Moderate Assistance 7=Complete IndependenceSCALE: Activities may be completed with or without assistive devices. 7-Aigwekflns-xczcuqr completes the activity by him/herself with no assistance from a helper. 5-Set-up or Clean-up Assistance-helper sets up or cleans up; patient completes activity. [place] assists only prior to or following the activity. 4-Supervision or Touching Assistance-helper provides verbal cues and/or touching/steadying and/or contact guard assistance as patient completes activity. Assistance may be provided throughout the activity or intermittently. 3-Partial/Moderate Assistance-helper does LESS THAN HALF the effort. [place] lifts, holds or supports trunk or limbs, but provides less than half the effort. 2-Substantial/Maximal Assistance-helper does MORE THAN HALF the effort. [place] lifts or holds trunk or limbs and provides more than half the effort. 8-Rzucwjupj-tkhpbf does ALL the effort. Patient does none of the effort to complete the activity. Or, the assistance of 2 or more helpers is required for the patient to complete the activity. If activity was not attempted, code reason: 7-Patient Refused. 9-Not Applicable-not attempted and the patient did not perform the activity before the current illness, exacerbation or injury. 10-Not Attempted due to Environmental Limitations-(lack of equipment, weather restraints, etc.). 88-Not Attempted due to Medical Conditions or Safety Concerns. Roll Left to Right (QC): 3 Sit to Lying (QC): 3 Sit to Stand (QC): 4 Chair/Xto-fk-Ysnwr Xfer(QC): 3 Car Transfer (QC): 3 Gait Training Does the Patient Walk?: Yes Distance: 50 Walk 10 feet (QC): 4 Walk 50 ft with 2 Turns(QC): 4 Walk 150 ft (QC): 88 Walking 10ft/uneven surface-QC: 88 Gait Persons Needed: 1 Gait Assistive Device: FWW Wheelchair Training Does the Pt Use a Wheelchair?: No Distance: 100' Wheel 50 ft with 2 turns (QC): 6 Wheel 150 ft (QC): 88 Type of Wheelchair: Manual Stair Training 1 Step (curb) (QC): 88 4 Steps (QC): 88 12 Steps (QC): 88 Balance Picking up an Object (QC): 4 (CGA using environmental science professor) ADL-Treatment Eating (QC): 6 Oral Hygiene (QC): 6 Bathing Location: L Arm, R Arm, L Upper Leg, R Upper Leg, L Lower Leg (including foot), R Lower Leg (including foot), Chest, Abdomen, Buttocks, Perineal Area Shower/Bathe Self (QC): 4 (SBA in stand as pt dries his buttocks. Pt able to wash all other parts seated on SC.) Upper Body Dressing (QC): 6 Lower Body Dressing (QC): 4 On/Off Footwear (QC): 6 Toileting Hygiene (QC): 4 (CGA) Toilet Transfer (QC): 4 Assessment/Plan Assessment and Plan Assess & Plan/Chief Complaint A/P: Right intertrochanteric femur fracture S/p repair - IM ash Management per Ortho Pain regimen Bowel regimen PT/OT Admitted to IRU Anemia severe iron deficiency started on iron infusions Nausea and vomiting Upper GI bleeding Possibly due to Cecille-Chung tear Hgb stable, monitor Continue Protonix Bowel regimen Add suppository Antiemetics as needed Presumed schizophrenia Maintained on fluphenazine DVT ppx: Lovenox 05/19/2022: Continue current treatment PPI IV to be changed to PO if surgery approves 05/20/2022: Continue monitoring hemoglobin Supportive care 05/21/2022: Supportive intermediate meds 05/22/2022: Supportive care Pain control 05/23/2022: IV iron infusions 05/24/2022: Iron infusions Pain control (1) Intertrochanteric fracture of right hip Status: Acute (2) GI bleed Status: Acute (3) Nausea & vomiting Status: Acute (4) Anemia Status: Acute (5) Fall on same level Status: Acute LULA RBUI DO May 24, 2022 05:07
[2022-05-24 07:28] VITALS: BP 123/73
[2022-05-24] MEDS: HYDROcodone/APAP 7.5 MG/325 MG (LORTAB, LORCET PLUS) TABLET PO PRN (07:39)
[2022-05-24] MEDS: PANTOPRAZOLE 40 MG (PROTONIX) TAB PO SCH ×2 (07:40→15:08)
--- NOTE | 2022-05-24 07:56 | Occupational Ther Daily Note ---
OT Current Status-Daily Note Subjective Pt alert, sitting in recliner. Pt agrees to therapy. C/o 8/10 hip pain, nrsg brought pain meds. Mental Status/Objective Patient Orientation: Person, Place, Time, Situation Attachments: IV ADL-Treatment Pt independent with eating. Pt agrees to shower. Assist to gather clothing. Pt ambulates using FWW, maintaining TTWB. Sitting 100% of the time, pt complete bathing/rinsing/drying by self using grabbars, hand held shower, LH sponge and shower bench. Set up for upper body dressing. VC/GC for lower body dressing using AE and SBA for safety while standing to hike pants over hips. Using sock aide, pt able to don socks by self and vc to use dressing stick to doff socks by self. Pt used dressing stick to thread clothing over feet. Sitting at sink, to complete oral care and grooming. After session, pt sitting in recliner with call light/phone in reach. All needs met in room. Therapy Code Descriptions/Definitions Functional [place] Measure: 0=Not Assessed/NA 4=Minimal Assistance 1=Total Assistance 5=Supervision or Setup 2=Maximal Assistance 6=Modified [place] 3=Moderate Assistance 7=Complete IndependenceSCALE: Activities may be completed with or without assistive devices. 4-Cyyrzvpscv-faeqrsb completes the activity by him/herself with no assistance from a helper. 5-Set-up or Clean-up Assistance-helper sets up or cleans up; patient completes activity. [place] assists only prior to or following the activity. 4-Supervision or Touching Assistance-helper provides verbal cues and/or touching/steadying and/or contact guard assistance as patient completes activity. Assistance may be provided throughout the activity or intermittently. 3-Partial/Moderate Assistance-helper does LESS THAN HALF the effort. [place] lifts, holds or supports trunk or limbs, but provides less than half the effort. 2-Substantial/Maximal Assistance-helper does MORE THAN HALF the effort. [place] lifts or holds trunk or limbs and provides more than half the effort. 1-Brziqfomy-juivhk does ALL the effort. Patient does none of the effort to complete the activity. Or, the assistance of 2 or more helpers is required for the patient to complete the activity. If activity was not attempted, code reason: 7-Patient Refused. 9-Not Applicable-not attempted and the patient did not perform the activity before the current illness, exacerbation or injury. 10-Not Attempted due to Environmental Limitations-(lack of equipment, weather restraints, etc.). 88-Not Attempted due to Medical Conditions or Safety Concerns. Eating (QC): 6 Oral Hygiene (QC): 6 Shower/Bathe Self (QC): 6 Upper Body Dressing (QC): 5 Lower Body Dressing (QC): 4 On/Off Footwear: 5 OT Short Term Goals Short Term Goals Time Frame: May 25, 2022 Eatin Oral hygiene: 6 Toileting hygiene: 3 Shower/bathe self: 3 Upper body dressin Lower body dressin Putting on/taking off footwear: 3 OT Cloth Printer Goals Detention Goals Time Frame: Jun 01, 2022 Acute change in mental status: 0 Inattention: 0 Disorganized thinkin Altered level of consciousness: 0 Eating (QC): 6 Oral Hygiene (QC): 6 Toileting Hygiene (QC): 6 Shower/Bathe Self (QC): 5 Upper Body Dressing (QC): 6 Lower Body Dressing (QC): 5 On/Off Footwear (QC): 5 Additional Goals: 1-Demonstrate ADL Tasks, 2-Verbalize Understanding, 3- ImproveStrength/Jus 1=Demonstrate adherence to instructed precautions during ADL tasks. 2=Patient will verbalize/demonstrate understanding of assistive devices/modifications for ADL. 3=Patient will improve strength/tolerance for activity to enable patient to perform ADL's. OT Education/Plan Problem List/Assessment Assessment: Impaired Funct Balance, Impaired Self-Care Skills Discharge Recommendations Plan/Recommendations: Continue POC Treatment Plan/Plan of Care Patient would benefit from OT for education, treatment and training to promote independence in ADL's, mobility, safety and/or upper extremity function for ADL's. Plan of Care: ADL Retraining, Functional Mobility, Group Exercise/Act as Ind, UE Funct Exercise/Act Treatment Duration: Jun 01, 2022 Frequency: At least 5 of 7 days/Wk (IRF) Estimated Hrs Per Day: 1.5 hours per day Rehab Potential: Fair Time Start Time: 07:00 Stop Time: 08:30 DATE: May 24, 2022 Total Time Billed (hr/min): 90 Billed Treatment Time 1 visit-ADL 6 (90 min) ROBIN HECK May 24, 2022 07:56
[2022-05-24] MEDS: DOCUSATE SODIUM 100 MG (COLACE) CAP PO SCH ×2 (08:11→20:20)
[2022-05-24] MEDS: ENOXAPARIN 40 MG/0.4 ML (LOVENOX) SYR SC SCH (08:11)
[2022-05-24] MEDS: BENZTROPINE MESYLATE 1 MG (COGENTIN) TAB PO SCH ×2 (08:11→20:20)
[2022-05-24] MEDS: polyethylene glycoL POWDER 17 GM (MIRALAX) PACK PO SCH ×2 (08:11→20:19)
[2022-05-24] MEDS: SENNA W/DOCUSATE (SENOKOT S) TABLET PO SCH ×2 (08:11→20:20)
--- NOTE | 2022-05-24 12:13 | Physical Therapy Daily Note ---
PT Daily Note-Current Subjective Pt found seated in recliner. Agreed to PT. States that sitting in the recliner has made his hips sore. Reports that hip soreness has been slowly improving. Does not rate pain. Pain Section J - Health Conditions 1. Rarely or not at all 2. Occasionally 3. Frequently 4. Almost constantly 8. Unable to answer Pain Effect on Sleep: 4 Pain Interference with Therapy: 4 Pain Interference w/Day-to-Day: 4 Mental Status Patient Orientation: Normal For Age Transfers SCALE: Activities may be completed with or without assistive devices. 1-Ohnopjujah-wbyknba completes the activity by him/herself with no assistance from a helper. 5-Set-up or Clean-up Assistance-helper sets up or cleans up; patient completes activity. [place] assists only prior to or following the activity. 4-Supervision or Touching Assistance-helper provides verbal cues and/or touching/steadying and/or contact guard assistance as patient completes activity. Assistance may be provided throughout the activity or intermittently. 3-Partial/Moderate Assistance-helper does LESS THAN HALF the effort. [place] lifts, holds or supports trunk or limbs, but provides less than half the effort. 2-Substantial/Maximal Assistance-helper does MORE THAN HALF the effort. [place] lifts or holds trunk or limbs and provides more than half the effort. 9-Vqqahatem-ogikwo does ALL the effort. Patient does none of the effort to complete the activity. Or, the assistance of 2 or more helpers is required for the patient to complete the activity. If activity was not attempted, code reason: 7-Patient Refused. 9-Not Applicable-not attempted and the patient did not perform the activity before the current illness, exacerbation or injury. 10-Not Attempted due to Environmental Limitations-(lack of equipment, weather restraints, etc.). 88-Not Attempted due to Medical Conditions or Safety Concerns. Sit to Lying (QC): 3 Lying to Sitting/Side of Bed(Q: 3 Sit to Stand (QC): 6 Chair/Syo-sz-Rscuo Xfer(QC): 6 Pt requires MIN assist /c RLE while trf in and out of bed. Independent /c sit<- >stand and chair/bed<->chair trfs. Weight Bearing Right Lower Extremity: Right Touch Toe Bearing Left Lower Extremity: Left Full Weight Bearing Gait Training Does the Patient Walk?: Yes Distance: 60 Walk 10 feet (QC): 6 Walk 50 ft with 2 Turns(QC): 6 Gait Persons Needed: 1 Gait Assistive Device: FWW Pt independent /c gait training. Amb. 60ft total /c FWW. Exercises Supine Ex: Ankle pumps, Quad Set, Glut sets, Heel Slides, Short Arc Quads, Straight leg raise, Hip abd/add Supine Reps: 15 Pt tolerated exercise well /c no report of increased pain. AAROM /c SLR and hip abd. Assessment Current Status: Fair Progress Pt slowly progressing /c gait training and exercise. Hip soreness has been slowly improving. Required RBs between sets. Continue to progress pt as tolerated to improve strength, endurance, functional ability, and decrease pain. PT Short Term Goals Short Term Goals Time Frame: May 25, 2022 Roll Left & Right: 4 (SBA) Sit to lyin (SBA) Lying to sitting on side of be: 4 (SBA) Sit to stand: 4 (CGA) Chair/hnw-tj-xzpro transfer: 4 (SBA) Walk 10 feet: 4 (SBA) Walk 50 feet with two turns: 4 (SBA) Walk 150 feet: 4 (SBA) PT Fpc Goals Fpc Goals PT Fpc Goals Time Frame: Jun 01, 2022 Roll Left & Right (QC): 6 Sit to Lying (QC): 6 Lying-Sitting on Side/Bed(QC): 6 Sit to Stand (QC): 6 Chair/Fmi-xy-Rybwr Xfer(QC): 6 Toilet Transfer (QC): 6 Car Transfer (QC): 6 Does the Patient Walk: Yes Walk 10 feet (QC): 6 Walk 50ft with 2 Turns (QC): 6 Walk 150 ft (QC): 6 Walking 10ft on Uneven Surface: 6 1 Step (curb) (QC): 4 4 Steps (QC): 4 12 Steps (QC): 88 Picking up an Object (QC): 6 Wheel 50 feet with 2 turns (QC: 9 Wheel 150 feet: 9 PT Plan Treatment/Plan Treatment Plan: Continue Plan of Care Treatment Plan: Bed Mobility, Education, Functional Activity Jus, Functional Strength, Group Therapy, Gait, Safety, Therapeutic Exercise, Transfers Treatment Duration: Jun 01, 2022 Frequency: At least 5 of 7 days/Wk (IRF) Estimated Hrs Per Day: 1.5 hours per day Patient and/or Family Agrees t: Yes Time Time In: 1100 Time Out: 1200 DATE: May 24, 2022 Total Billed Treatment Time: 60 Total Billed Treatment 1 visit GT 2x EX 2x YOHANNES JUAREZ PTA May 24, 2022 12:13
--- NOTE | 2022-05-24 14:42 | Physical Therapy Daily Note ---
PT Daily Note-Current Subjective Pt laying Supine in bed upon arrival. Pt agrees to PT for review of Supine Ex. Pt's sister is present during tx. Pain Location: Right, Incisional Location Body Site: Hip Pain Description: Ache Comment: Reports but doesn't rate Section J - Health Conditions 1. Rarely or not at all 2. Occasionally 3. Frequently 4. Almost constantly 8. Unable to answer Pain Effect on Sleep: 4 Pain Interference with Therapy: 4 Pain Interference w/Day-to-Day: 4 Mental Status Patient Orientation: Person, Place Transfers SCALE: Activities may be completed with or without assistive devices. 2-Pgalfqwfla-dgpyqke completes the activity by him/herself with no assistance from a helper. 5-Set-up or Clean-up Assistance-helper sets up or cleans up; patient completes activity. [place] assists only prior to or following the activity. 4-Supervision or Touching Assistance-helper provides verbal cues and/or touching/steadying and/or contact guard assistance as patient completes activity. Assistance may be provided throughout the activity or intermittently. 3-Partial/Moderate Assistance-helper does LESS THAN HALF the effort. [place] lifts, holds or supports trunk or limbs, but provides less than half the effort. 2-Substantial/Maximal Assistance-helper does MORE THAN HALF the effort. [place] lifts or holds trunk or limbs and provides more than half the effort. 6-Diezhgjdt-lotkwn does ALL the effort. Patient does none of the effort to complete the activity. Or, the assistance of 2 or more helpers is required for the patient to complete the activity. If activity was not attempted, code reason: 7-Patient Refused. 9-Not Applicable-not attempted and the patient did not perform the activity before the current illness, exacerbation or injury. 10-Not Attempted due to Environmental Limitations-(lack of equipment, weather restraints, etc.). 88-Not Attempted due to Medical Conditions or Safety Concerns. Weight Bearing Right Lower Extremity: Right Touch Toe Bearing Left Lower Extremity: Left Full Weight Bearing Exercises Supine Ex: Ankle pumps, Quad Set, Glut sets, Heel Slides, Straight leg raise, Hip abd/add Supine Reps: 15 Treatments Pt completes Supine Ex in bed with RB as needed. Pt and sister concerned w/lack of BM & this is communicated to Nurse. All needs met, call light in hand. Assessment Current Status: Fair Progress Pt needs VC & TC to complete EX given. PT Short Term Goals Short Term Goals Time Frame: May 25, 2022 Roll Left & Right: 4 (SBA) Sit to lyin (SBA) Lying to sitting on side of be: 4 (SBA) Sit to stand: 4 (CGA) Chair/vfb-lk-lvjxh transfer: 4 (SBA) Walk 10 feet: 4 (SBA) Walk 50 feet with two turns: 4 (SBA) Walk 150 feet: 4 (SBA) PT Film Coater Goals Film Coater Goals PT Retirement Goals Time Frame: Jun 01, 2022 Roll Left & Right (QC): 6 Sit to Lying (QC): 6 Lying-Sitting on Side/Bed(QC): 6 Sit to Stand (QC): 6 Chair/Lay-eb-Yztvq Xfer(QC): 6 Toilet Transfer (QC): 6 Car Transfer (QC): 6 Does the Patient Walk: Yes Walk 10 feet (QC): 6 Walk 50ft with 2 Turns (QC): 6 Walk 150 ft (QC): 6 Walking 10ft on Uneven Surface: 6 1 Step (curb) (QC): 4 4 Steps (QC): 4 12 Steps (QC): 88 Picking up an Object (QC): 6 Wheel 50 feet with 2 turns (QC: 9 Wheel 150 feet: 9 PT Plan Problem List Problem List: Activity Tolerance, Functional Strength Treatment/Plan Treatment Plan: Continue Plan of Care Treatment Plan: Bed Mobility, Education, Functional Activity Jus, Functional Strength, Group Therapy, Gait, Safety, Therapeutic Exercise, Transfers Treatment Duration: Jun 01, 2022 Frequency: At least 5 of 7 days/Wk (IRF) Estimated Hrs Per Day: 1.5 hours per day Patient and/or Family Agrees t: Yes Safety Risks/Education Patient Education: Issued Written HEP, Reviewed Precautions, Correct Positioning, Safety Issues Teaching Recipient: Patient, Family Teaching Methods: Discussion Response to Teaching: Verbalize Understanding Time Time In: 1330 Time Out: 1400 DATE: May 24, 2022 Total Billed Treatment Time: 30 Total Billed Treatment 1, EX x2 (30m) ZAINAB WALTER MOTION PICTURE SET WORKER May 24, 2022 14:42
[2022-05-24] MEDS: LACTULOSE SYRUP 10GM/15ML (ENULOSE) 30ML UDC PO PRN (15:08)
[2022-05-24 20:04] VITALS: BP 111/73
--- NOTE | 2022-05-25 05:25 | PM&R Progress Note ---
Subjective HPI/CC On Admission Date Seen by Provider: May 25, 2022 Time Seen by Provider: 11:00 Subjective/Events-last exam 05/25/2022: Patient doing well No pain reported at this point unless he moves Bowels are moving No other concerns 05/24/2022: No major issues Pain controlled Iron infusions tolerated 05/23/2022: Patient in a good mood No other concerns Pain is controlled Labs stable IV iron infusion indicated 05/22/2022: Patient in a good mood Pain is controlled Bowels are moving 05/21/2022: Patient doing well Pain is well controlled Bowels are moving No concerns 05/20/2022: No major issues Pain is controlled Participating in therapy Supportive care will continue 05/19/2022: Doing very well Pain controlled BM needs to occur so giving meds No falls Slept well last night Review of Systems General: Fatigue, Malaise Objective Exam Vital Signs Vital Signs Date Time Temp Pulse Resp B/P (MAP) Pulse Ox O2 Delivery O2 Flow Rate FiO2 05/25/22 20:34 36.5 95 18 115/71 (86) 96 Room Air Capillary Refill : General Appearance: No Apparent Distress, WD/WN HEENT: PERRL/EOMI, Normal ENT Inspection, Pharynx Normal Neck: Full Range of Motion, Normal Inspection, Non Tender, Supple, Carotid Bruit Respiratory: Chest Non Tender, Lungs Clear, Normal Breath Sounds, No Accessory Muscle Use, No Respiratory Distress Cardiovascular: Regular Rate, Rhythm, No Edema, No Gallop, No JVD, No Murmur, Normal Peripheral Pulses Gastrointestinal: Normal Bowel Sounds, No Organomegaly, No Pulsatile Mass, Non Tender, Soft Back: Normal Inspection, No CVA Tenderness, No Vertebral Tenderness Extremity: Normal Capillary Refill, Normal Inspection, Normal Range of Motion, Non Tender, No Calf Tenderness, No Pedal Edema Neurologic/Psychiatric: Alert, Oriented x3, No Motor/Sensory Deficits, Normal Mood/Affect, workflow developer II-XII Norm as Tested, Abnormal Gait, Motor Weakness Skin: Normal Color, Warm/Dry Lymphatic: No Adenopathy Results/Procedures Lab Patient resulted labs reviewed. FIM Transfers Therapy Code Descriptions/Definitions Functional [place] Measure: 0=Not Assessed/NA 4=Minimal Assistance 1=Total Assistance 5=Supervision or Setup 2=Maximal Assistance 6=Modified [place] 3=Moderate Assistance 7=Complete IndependenceSCALE: Activities may be completed with or without assistive devices. 9-Qbzuaiovip-lgjrefn completes the activity by him/herself with no assistance from a helper. 5-Set-up or Clean-up Assistance-helper sets up or cleans up; patient completes activity. [place] assists only prior to or following the activity. 4-Supervision or Touching Assistance-helper provides verbal cues and/or touching/steadying and/or contact guard assistance as patient completes activity. Assistance may be provided throughout the activity or intermittently. 3-Partial/Moderate Assistance-helper does LESS THAN HALF the effort. [place] lifts, holds or supports trunk or limbs, but provides less than half the effort. 2-Substantial/Maximal Assistance-helper does MORE THAN HALF the effort. [place] lifts or holds trunk or limbs and provides more than half the effort. 7-Rgvbvdygi-kskdbp does ALL the effort. Patient does none of the effort to complete the activity. Or, the assistance of 2 or more helpers is required for the patient to complete the activity. If activity was not attempted, code reason: 7-Patient Refused. 9-Not Applicable-not attempted and the patient did not perform the activity before the current illness, exacerbation or injury. 10-Not Attempted due to Environmental Limitations-(lack of equipment, weather restraints, etc.). 88-Not Attempted due to Medical Conditions or Safety Concerns. Roll Left to Right (QC): 3 Sit to Lying (QC): 3 Sit to Stand (QC): 6 Chair/Cub-yt-Pkudk Xfer(QC): 6 Car Transfer (QC): 3 Gait Training Does the Patient Walk?: Yes Distance: 60 Walk 10 feet (QC): 6 Walk 50 ft with 2 Turns(QC): 6 Walk 150 ft (QC): 88 Walking 10ft/uneven surface-QC: 88 Gait Persons Needed: 1 Gait Assistive Device: FWW Wheelchair Training Does the Pt Use a Wheelchair?: No Distance: 100' Wheel 50 ft with 2 turns (QC): 6 Wheel 150 ft (QC): 88 Type of Wheelchair: Manual Stair Training 1 Step (curb) (QC): 88 4 Steps (QC): 88 12 Steps (QC): 88 Balance Picking up an Object (QC): 4 (CGA using coal passer) ADL-Treatment Eating (QC): 6 Oral Hygiene (QC): 6 Bathing Location: L Arm, R Arm, L Upper Leg, R Upper Leg, L Lower Leg (including foot), R Lower Leg (including foot), Chest, Abdomen, Buttocks, Perineal Area Shower/Bathe Self (QC): 6 Upper Body Dressing (QC): 5 Lower Body Dressing (QC): 4 On/Off Footwear (QC): 5 Toileting Hygiene (QC): 4 (CGA) Toilet Transfer (QC): 4 Assessment/Plan Assessment and Plan Assess & Plan/Chief Complaint A/P: Right intertrochanteric femur fracture S/p repair - IM ash Management per Ortho Pain regimen Bowel regimen PT/OT Admitted to IRU Anemia severe iron deficiency started on iron infusions Nausea and vomiting Upper GI bleeding Possibly due to Cecille-Chung tear Hgb stable, monitor Continue Protonix Bowel regimen Add suppository Antiemetics as needed Presumed schizophrenia Maintained on fluphenazine DVT ppx: Lovenox 05/19/2022: Continue current treatment PPI IV to be changed to PO if surgery approves 05/20/2022: Continue monitoring hemoglobin Supportive care 05/21/2022: Supportive correction meds 05/22/2022: Supportive care Pain control 05/23/2022: IV iron infusions 05/24/2022: Iron infusions Pain control 05/25/2022: Continue iron infusions Discharge plan (1) Intertrochanteric fracture of right hip Status: Acute (2) GI bleed Status: Acute (3) Nausea & vomiting Status: Acute (4) Anemia Status: Acute (5) Fall on same level Status: Acute LULA RUBI DO May 25, 2022 05:25
[2022-05-25] MEDS: PANTOPRAZOLE 40 MG (PROTONIX) TAB PO SCH ×2 (06:11→16:25)
[2022-05-25 07:28] VITALS: BP 123/74
[2022-05-25] MEDS: ENOXAPARIN 40 MG/0.4 ML (LOVENOX) SYR SC SCH (08:18)
[2022-05-25] MEDS: BENZTROPINE MESYLATE 1 MG (COGENTIN) TAB PO SCH ×2 (08:18→20:23)
[2022-05-25] MEDS: SENNA W/DOCUSATE (SENOKOT S) TABLET PO SCH ×2 (08:18→20:23)
[2022-05-25] MEDS: DOCUSATE SODIUM 100 MG (COLACE) CAP PO SCH ×2 (08:18→20:23)
[2022-05-25] MEDS: polyethylene glycoL POWDER 17 GM (MIRALAX) PACK PO SCH ×2 (08:18→20:24)
[2022-05-25] MEDS: IRON SUCROSE 200 MG/10 ML (VENOFER) VIAL IV SCH (08:18)
--- NOTE | 2022-05-25 08:58 | Physical Therapy Daily Note ---
PT Daily Note-Current Subjective Pt found laying in bed upon entry. Agreed to PT. States that both his stomach and R hip have felt a little better. Reports R hip soreness but does not rate. Pain Section J - Health Conditions 1. Rarely or not at all 2. Occasionally 3. Frequently 4. Almost constantly 8. Unable to answer Pain Effect on Sleep: 4 Pain Interference with Therapy: 4 Pain Interference w/Day-to-Day: 4 Mental Status Patient Orientation: Normal For Age Transfers SCALE: Activities may be completed with or without assistive devices. 0-Sywhswvufk-exklnbn completes the activity by him/herself with no assistance from a helper. 5-Set-up or Clean-up Assistance-helper sets up or cleans up; patient completes activity. [place] assists only prior to or following the activity. 4-Supervision or Touching Assistance-helper provides verbal cues and/or touching/steadying and/or contact guard assistance as patient completes activity. Assistance may be provided throughout the activity or intermittently. 3-Partial/Moderate Assistance-helper does LESS THAN HALF the effort. [place] lifts, holds or supports trunk or limbs, but provides less than half the effort. 2-Substantial/Maximal Assistance-helper does MORE THAN HALF the effort. [place] lifts or holds trunk or limbs and provides more than half the effort. 8-[place]-dwtwjx does ALL the effort. Patient does none of the effort to complete the activity. Or, the assistance of 2 or more helpers is required for the patient to complete the activity. If activity was not attempted, code reason: 7-Patient Refused. 9-Not Applicable-not attempted and the patient did not perform the activity before the current illness, exacerbation or injury. 10-Not Attempted due to Environmental Limitations-(lack of equipment, weather restraints, etc.). 88-Not Attempted due to Medical Conditions or Safety Concerns. Sit to Stand (QC): 6 Pt independent /c sit<->stand trfs. Weight Bearing Right Lower Extremity: Right Touch Toe Bearing Left Lower Extremity: Left Full Weight Bearing Gait Training Does the Patient Walk?: Yes Distance: 60 Walk 10 feet (QC): 6 Walk 50 ft with 2 Turns(QC): 6 Gait Persons Needed: 1 Gait Assistive Device: FWW Pt independent /c gait training. Amb. 60ft total /c FWW. Wheelchair Training Does the Pt Use a Wheelchair?: Yes Wheel 50 ft with 2 turns (QC): 6 Wheel 150 ft (QC): 6 Type of Wheelchair: Manual Pt independent /c WC training. Wheeled 200ft total. Exercises Seated Therapy Exercises: Ankle pumps, Long arc quads, Hip flexion, Hip abd/add Seated Reps: 15 Standing: Hamstring curls, 3 way Ex=Flex, Abd, Ext, Side steps Standing Reps: 15 Pt slow to complete exercise d/t R hip soreness. All standing exercise done /c WB on LLE only. Assessment Current Status: Fair Progress Pt demonstrated signs of pain throughout Tx d/t hip soreness. Progressed to standing exercise /c WB on LLE only to maintain TTWB status on RLE. Pt slow to complete gait training and exercise d/t pain. Continue to progress pt as tolerated per POC to increase strength, endurance, functional ability, and d ecrease pain. PT Short Term Goals Short Term Goals Time Frame: May 25, 2022 Roll Left & Right: 4 (SBA) Sit to lyin (SBA) Lying to sitting on side of be: 4 (SBA) Sit to stand: 4 (CGA) Chair/cdb-cz-gadwf transfer: 4 (SBA) Walk 10 feet: 4 (SBA) Walk 50 feet with two turns: 4 (SBA) Walk 150 feet: 4 (SBA) PT Shelter Goals Shelter Goals PT First Assistant Goals Time Frame: Jun 01, 2022 Roll Left & Right (QC): 6 Sit to Lying (QC): 6 Lying-Sitting on Side/Bed(QC): 6 Sit to Stand (QC): 6 Chair/Rsn-ja-Eissr Xfer(QC): 6 Toilet Transfer (QC): 6 Car Transfer (QC): 6 Does the Patient Walk: Yes Walk 10 feet (QC): 6 Walk 50ft with 2 Turns (QC): 6 Walk 150 ft (QC): 6 Walking 10ft on Uneven Surface: 6 1 Step (curb) (QC): 4 4 Steps (QC): 4 12 Steps (QC): 88 Picking up an Object (QC): 6 Wheel 50 feet with 2 turns (QC: 9 Wheel 150 feet: 9 PT Plan Treatment/Plan Treatment Plan: Continue Plan of Care Treatment Plan: Bed Mobility, Education, Functional Activity Jus, Functional Strength, Group Therapy, Gait, Safety, Therapeutic Exercise, Transfers Treatment Duration: Jun 01, 2022 Frequency: At least 5 of 7 days/Wk (IRF) Estimated Hrs Per Day: 1.5 hours per day Patient and/or Family Agrees t: Yes Time Time In: 0800 Time Out: 0900 DATE: May 25, 2022 Total Billed Treatment Time: 60 Total Billed Treatment 1 visit GT 1x FA 1x EX 2x YOHANNES JUAREZ PTA May 25, 2022 08:58
--- NOTE | 2022-05-25 10:56 | Occupational Ther Daily Note ---
OT Current Status-Daily Note Subjective Pt alert, sitting in recliner. Pt agrees to therapy. Pt stated that he has pain and nrsg had just administered pain meds. Mental Status/Objective Patient Orientation: Person, Place, Time, Situation Attachments: IV ADL-Treatment Pt declines shower, changing clothing, toileting. Pt agrees to ambulate to sink and standing to complete oral care with supervision for safety. Pt then taken to central bathing to work on tub transfer bench transfers. Pt demonstrated ability to complete transfer with SBA. Gait belt fashioned into loop to use as a leg bridge ironworker to allow pt to lift R LE in/out of tub by self. Pt also used gait belt leg bridge ironworker with bed mobility. Therapy Code Descriptions/Definitions Functional [place] Measure: 0=Not Assessed/NA 4=Minimal Assistance 1=Total Assistance 5=Supervision or Setup 2=Maximal Assistance 6=Modified [place] 3=Moderate Assistance 7=Complete IndependenceSCALE: Activities may be completed with or without assistive devices. 5-[place]frz[place] completes the activity by him/herself with no assistance from a helper. 5-Set-up or Clean-up Assistance-helper sets up or cleans up; patient completes activity. [place] assists only prior to or following the activity. 4-Supervision or Touching Assistance-helper provides verbal cues and/or touching/steadying and/or contact guard assistance as patient completes activity. Assistance may be provided throughout the activity or intermittently. 3-Partial/Moderate Assistance-helper does LESS THAN HALF the effort. [place] lifts, holds or supports trunk or limbs, but provides less than half the effort. 2-Substantial/Maximal Assistance-helper does MORE THAN HALF the effort. [place] lifts or holds trunk or limbs and provides more than half the effort. 7-Bqyohrczs-dukwrt does ALL the effort. Patient does none of the effort to complete the activity. Or, the assistance of 2 or more helpers is required for the patient to complete the activity. If activity was not attempted, code reason: 7-Patient Refused. 9-Not Applicable-not attempted and the patient did not perform the activity before the current illness, exacerbation or injury. 10-Not Attempted due to Environmental Limitations-(lack of equipment, weather restraints, etc.). 88-Not Attempted due to Medical Conditions or Safety Concerns. Oral Hygiene (QC): 4 Other Treatment Pt propelled w/c to/from gym/room by self. Pt used 3# wts to complete 5 B UE exercises, 1 set 15 reps with skilled instruction for correct technique. Pt fatigued quickly. Arm bike completed for 10 min at 20-15 cannon resistance, due to fatigue resistance lessened throughout exercise. After therapy, pt lying in bed with call light/phone in reach. All needs met in room. OT Short Term Goals Short Term Goals Time Frame: May 25, 2022 Eatin Oral hygiene: 6 Toileting hygiene: 3 Shower/bathe self: 3 Upper body dressin Lower body dressin Putting on/taking off footwear: 3 OT Triage Specialist Goals Triage Specialist Goals Time Frame: Jun 01, 2022 Acute change in mental status: 0 Inattention: 0 Disorganized thinkin Altered level of consciousness: 0 Eating (QC): 6 Oral Hygiene (QC): 6 Toileting Hygiene (QC): 6 Shower/Bathe Self (QC): 5 Upper Body Dressing (QC): 6 Lower Body Dressing (QC): 5 On/Off Footwear (QC): 5 Additional Goals: 1-Demonstrate ADL Tasks, 2-Verbalize Understanding, 3- ImproveStrength/Jus 1=Demonstrate adherence to instructed precautions during ADL tasks. 2=Patient will verbalize/demonstrate understanding of assistive devices/modifications for ADL. 3=Patient will improve strength/tolerance for activity to enable patient to perform ADL's. OT Education/Plan Problem List/Assessment Assessment: Decreased Activ Tolerance, Decreased UE Strength, Impaired Self- Care Skills Discharge Recommendations Plan/Recommendations: Continue POC Treatment Plan/Plan of Care Patient would benefit from OT for education, treatment and training to promote independence in ADL's, mobility, safety and/or upper extremity function for ADL's. Plan of Care: ADL Retraining, Functional Mobility, Group Exercise/Act as Ind, UE Funct Exercise/Act Treatment Duration: Jun 01, 2022 Frequency: At least 5 of 7 days/Wk (IRF) Estimated Hrs Per Day: 1.5 hours per day Rehab Potential: Fair Time Start Time: 09:00 Stop Time: 10:00 DATE: May 25, 2022 Total Time Billed (hr/min): 60 Billed Treatment Time 1 visit-ADL 2 (30 min) EX 2 (30 min) ROBIN HECK May 25, 2022 10:56
--- NOTE | 2022-05-25 11:49 | Physical Therapy Daily Note ---
PT Daily Note-Current Subjective Pt found laying in bed upon entry. Agreed to PT. States that his R hip is still feeling sore. Does not rate pain. Pain Section J - Health Conditions 1. Rarely or not at all 2. Occasionally 3. Frequently 4. Almost constantly 8. Unable to answer Pain Effect on Sleep: 4 Pain Interference with Therapy: 4 Pain Interference w/Day-to-Day: 4 Mental Status Patient Orientation: Normal For Age Transfers SCALE: Activities may be completed with or without assistive devices. 4-Fhoqjnwpxl-ixchiyr completes the activity by him/herself with no assistance fr om a helper. 5-Set-up or Clean-up Assistance-helper sets up or cleans up; patient completes activity. [place] assists only prior to or following the activity. 4-Supervision or Touching Assistance-helper provides verbal cues and/or touching/steadying and/or contact guard assistance as patient completes activity. Assistance may be provided throughout the activity or intermittently. 3-Partial/Moderate Assistance-helper does LESS THAN HALF the effort. [place] lifts, holds or supports trunk or limbs, but provides less than half the effort. 2-Substantial/Maximal Assistance-helper does MORE THAN HALF the effort. [place] lifts or holds trunk or limbs and provides more than half the effort. 1-Dxmjswhdt-oztsvp does ALL the effort. Patient does none of the effort to complete the activity. Or, the assistance of 2 or more helpers is required for the patient to complete the activity. If activity was not attempted, code reason: 7-Patient Refused. 9-Not Applicable-not attempted and the patient did not perform the activity before the current illness, exacerbation or injury. 10-Not Attempted due to Environmental Limitations-(lack of equipment, weather restraints, etc.). 88-Not Attempted due to Medical Conditions or Safety Concerns. Sit to Lying (QC): 5 Lying to Sitting/Side of Bed(Q: 5 Sit to Stand (QC): 6 Pt set up assist /c sit<->lying trfs. Independent /c sit<->stand trfs. Weight Bearing Right Lower Extremity: Right Touch Toe Bearing Left Lower Extremity: Left Full Weight Bearing Gait Training Does the Patient Walk?: Yes Distance: 6 Walk 10 feet (QC): 6 Walk 50 ft with 2 Turns(QC): 6 Walk 150 ft (QC): 6 Gait Persons Needed: 1 Gait Assistive Device: FWW Pt independent /c gait training. Amb. 60ft total /c FWW. Exercises Supine Ex: Ankle pumps, Quad Set, Glut sets, Heel Slides, Straight leg raise, Hip abd/add Supine Reps: 15 Pt tolerated exercise well /c no report of increased pain. Assessment Current Status: Fair Progress Pt tolerated Tx well but demonstrated signs of pain during gait training. R hip soreness slowly improving. Pt advanced to set up assist /c sit<->lying trfs. Continue to progress pt as tolerated per POC to increase endurance, strength, functional ability, and decrease pain. PT Short Term Goals Short Term Goals Time Frame: May 25, 2022 Roll Left & Right: 4 (SBA) Sit to lyin (SBA) Lying to sitting on side of be: 4 (SBA) Sit to stand: 4 (CGA) Chair/fuf-ne-fjxkt transfer: 4 (SBA) Walk 10 feet: 4 (SBA) Walk 50 feet with two turns: 4 (SBA) Walk 150 feet: 4 (SBA) PT Retirement Goals Retirement Goals PT Utilities Manager Goals Time Frame: Jun 01, 2022 Roll Left & Right (QC): 6 Sit to Lying (QC): 6 Lying-Sitting on Side/Bed(QC): 6 Sit to Stand (QC): 6 Chair/Tma-gm-Bsslw Xfer(QC): 6 Toilet Transfer (QC): 6 Car Transfer (QC): 6 Does the Patient Walk: Yes Walk 10 feet (QC): 6 Walk 50ft with 2 Turns (QC): 6 Walk 150 ft (QC): 6 Walking 10ft on Uneven Surface: 6 1 Step (curb) (QC): 4 4 Steps (QC): 4 12 Steps (QC): 88 Picking up an Object (QC): 6 Wheel 50 feet with 2 turns (QC: 9 Wheel 150 feet: 9 PT Plan Treatment/Plan Treatment Plan: Continue Plan of Care Treatment Plan: Bed Mobility, Education, Functional Activity Jus, Functional Strength, Group Therapy, Gait, Safety, Therapeutic Exercise, Transfers Treatment Duration: Jun 01, 2022 Frequency: At least 5 of 7 days/Wk (IRF) Estimated Hrs Per Day: 1.5 hours per day Patient and/or Family Agrees t: Yes Time Time In: 1115 Time Out: 1145 DATE: May 25, 2022 Total Billed Treatment Time: 30 Total Billed Treatment 1 visit FA 1x EX 1x YOHANNES JUAREZ PTA May 25, 2022 11:49
--- NOTE | 2022-05-25 12:15 | Progress Note ---
Standard Progress Note Progress Notes/Assess & Plan Date Seen by a Provider: May 25, 2022 Time Seen by a Provider: 12:15 Progress/Assessment & Plan no complaints ate some breakfast Vital Signs Date Time Temp Pulse Resp B/P (MAP) Pulse Ox O2 Delivery O2 Flow Rate FiO2 05/19/22 07:18 37.1 99 22 117/66 (83) 96 Room Air 05/18/22 20:21 Room Air 05/18/22 20:12 37.0 103 18 126/66 (86) 97 Room Air 05/18/22 11:22 Room Air I & O 05/19/22 07:00 Intake Total 1460 ml Balance 1460 ml Laboratory Tests Test 05/19/22 05:32 Range/Units White Blood Count 10.6 4.3-11.0 10^3/uL Red Blood Count 2.77 L 4.30-5.52 10^6/uL Hemoglobin 8.4 L 13.3-17.7 g/dL Hematocrit 25 L 40-54 % Mean Corpuscular Volume 91 80-99 fL Mean Corpuscular Hemoglobin 30 25-34 pg Mean Corpuscular Hemoglobin Concent 34 32-36 g/dL Red Cell Distribution Width 12.2 10.0-14.5 % Platelet Count 359 130-400 10^3/uL Mean Platelet Volume 9.1 9.0-12.2 fL Immature Granulocyte % (Auto) 2 % Neutrophils (%) (Auto) 77 H 42-75 % Lymphocytes (%) (Auto) 9 L 12-44 % Monocytes (%) (Auto) 9 0-12 % Eosinophils (%) (Auto) 3 0-10 % Basophils (%) (Auto) 0 0-10 % Neutrophils # (Auto) 8.2 H 1.8-7.8 10^3/uL Lymphocytes # (Auto) 1.0 1.0-4.0 10^3/uL Monocytes # (Auto) 1.0 0.0-1.0 10^3/uL Eosinophils # (Auto) 0.3 0.0-0.3 10^3/uL Basophils # (Auto) 0.0 0.0-0.1 10^3/uL Immature Granulocyte # (Auto) 0.2 H 0.0-0.1 10^3/uL Sodium Level 134 L 135-145 MMOL/L Potassium Level 3.6 3.6-5.0 MMOL/L Chloride Level 101 98-107 MMOL/L Carbon Dioxide Level 21 21-32 MMOL/L Anion Gap 12 5-14 MMOL/L Blood Urea Nitrogen 17 7-18 MG/DL Creatinine 0.83 0.60-1.30 MG/DL Estimat Glomerular Filtration Rate 97 BUN/Creatinine Ratio 20 Glucose Level 128 H 70-105 MG/DL Calcium Level 8.2 L 8.5-10.1 MG/DL Corrected Calcium 9.1 8.5-10.1 MG/DL Total Bilirubin 0.6 0.1-1.0 MG/DL Aspartate Amino Transf (AST/SGOT) 23 5-34 U/L Alanine Aminotransferase (ALT/SGPT) 26 0-55 U/L Alkaline Phosphatase 39 L 40-136 U/L Total Protein 5.7 L 6.4-8.2 GM/DL Albumin 2.9 L 3.2-4.5 GM/DL R hip incision clean and dry s/p R hip IM nail PT/OT Final Diagnosis no complaints R hip incisions clean and dry no calf tenderness s/p R hip IM ash continue PT/OT IRMA HOLDEN MD May 25, 2022 12:15
--- NOTE | 2022-05-25 13:10 | Occupational Ther Daily Note ---
OT Current Status-Daily Note Subjective Pt dozing in bed, woke easily to name. Pt agrees to therapy. No c/o pain. Mental Status/Objective Patient Orientation: Person, Place, Time, Situation ADL-Treatment Therapy Code Descriptions/Definitions Functional [place] Measure: 0=Not Assessed/NA 4=Minimal Assistance 1=Total Assistance 5=Supervision or Setup 2=Maximal Assistance 6=Modified [place] 3=Moderate Assistance 7=Complete IndependenceSCALE: Activities may be completed with or without assistive devices. 0-Rcbjyqbqcx-adayegz completes the activity by him/herself with no assistance from a helper. 5-Set-up or Clean-up Assistance-helper sets up or cleans up; patient completes activity. [place] assists only prior to or following the activity. 4-Supervision or Touching Assistance-helper provides verbal cues and/or touching/steadying and/or contact guard assistance as patient completes activity. Assistance may be provided throughout the activity or intermittently. 3-Partial/Moderate Assistance-helper does LESS THAN HALF the effort. [place] lifts, holds or supports trunk or limbs, but provides less than half the effort. 2-Substantial/Maximal Assistance-helper does MORE THAN HALF the effort. [place] lifts or holds trunk or limbs and provides more than half the effort. 4-Luoyzdxfs-rllcxe does ALL the effort. Patient does none of the effort to complete the activity. Or, the assistance of 2 or more helpers is required for the patient to complete the activity. If activity was not attempted, code reason: 7-Patient Refused. 9-Not Applicable-not attempted and the patient did not perform the activity before the current illness, exacerbation or injury. 10-Not Attempted due to Environmental Limitations-(lack of equipment, weather restraints, etc.). 88-Not Attempted due to Medical Conditions or Safety Concerns. Other Treatment Pt completed heavy resistance theraband exercises with skilled instruction for correct technique and modifications. 2 sets 10 reps of 4 exercises to strengthen B UE for daily functional tasks. Discussed pt's discharge date, home environment and AD/AE. Sister is gathering all AD/AE and getting home ready for pt. After session, pt lying in bed with call light/phone in reach. All needs met in room. OT Short Term Goals Short Term Goals Time Frame: May 25, 2022 Eatin Oral hygiene: 6 Toileting hygiene: 3 Shower/bathe self: 3 Upper body dressin Lower body dressin Putting on/taking off footwear: 3 OT Intermediate Goals Construction Operations Manager Goals Time Frame: Jun 01, 2022 Acute change in mental status: 0 Inattention: 0 Disorganized thinkin Altered level of consciousness: 0 Eating (QC): 6 Oral Hygiene (QC): 6 Toileting Hygiene (QC): 6 Shower/Bathe Self (QC): 5 Upper Body Dressing (QC): 6 Lower Body Dressing (QC): 5 On/Off Footwear (QC): 5 Additional Goals: 1-Demonstrate ADL Tasks, 2-Verbalize Understanding, 3- ImproveStrength/Jus 1=Demonstrate adherence to instructed precautions during ADL tasks. 2=Patient will verbalize/demonstrate understanding of assistive devices/modifications for ADL. 3=Patient will improve strength/tolerance for activity to enable patient to perform ADL's. OT Education/Plan Problem List/Assessment Assessment: Decreased UE Strength Discharge Recommendations Plan/Recommendations: Continue POC Treatment Plan/Plan of Care Patient would benefit from OT for education, treatment and training to promote independence in ADL's, mobility, safety and/or upper extremity function for ADL's. Plan of Care: ADL Retraining, Functional Mobility, Group Exercise/Act as Ind, UE Funct Exercise/Act Treatment Duration: Jun 01, 2022 Frequency: At least 5 of 7 days/Wk (IRF) Estimated Hrs Per Day: 1.5 hours per day Rehab Potential: Fair Time Start Time: 12:40 Stop Time: 13:10 DATE: May 25, 2022 Total Time Billed (hr/min): 30 Billed Treatment Time 1 visit-EX 1 (20 min) FA 1 (10 min) ROBIN HECK May 25, 2022 13:10
[2022-05-25 20:34] VITALS: BP 115/71
[2022-05-26] MEDS: PANTOPRAZOLE 40 MG (PROTONIX) TAB PO SCH ×2 (06:26→16:12)
[2022-05-26 07:48] VITALS: BP 119/56
[2022-05-26] MEDS: BENZTROPINE MESYLATE 1 MG (COGENTIN) TAB PO SCH ×2 (08:02→20:26)
[2022-05-26] MEDS: ENOXAPARIN 40 MG/0.4 ML (LOVENOX) SYR SC SCH (08:03)
[2022-05-26] MEDS: SENNA W/DOCUSATE (SENOKOT S) TABLET PO SCH ×2 (08:08→20:26)
[2022-05-26] MEDS: DOCUSATE SODIUM 100 MG (COLACE) CAP PO SCH ×2 (08:08→20:26)
[2022-05-26] MEDS: polyethylene glycoL POWDER 17 GM (MIRALAX) PACK PO SCH ×2 (08:12→19:34)
--- NOTE | 2022-05-26 09:00 | Physical Therapy Daily Note ---
PT Daily Note-Current Subjective Pt found laying in bed /c nurse present upon entry. Agreed to PT. States that his hip is still sore but feels a little better. Reports that he is going to his sisters house and it has stairs. The stairs have two handrails but they are too far apart to reach both of them. Does not rate pain. Pain Section J - Health Conditions 1. Rarely or not at all 2. Occasionally 3. Frequently 4. Almost constantly 8. Unable to answer Pain Effect on Sleep: 4 Pain Interference with Therapy: 4 Pain Interference w/Day-to-Day: 4 Mental Status Patient Orientation: Normal For Age Transfers SCALE: Activities may be completed with or without assistive devices. 9-Fmdqqzesdv-brjcztn completes the activity by him/herself with no assistance from a helper. 5-Set-up or Clean-up Assistance-helper sets up or cleans up; patient completes activity. [place] assists only prior to or following the activity. 4-Supervision or Touching Assistance-helper provides verbal cues and/or touching/steadying and/or contact guard assistance as patient completes activity. Assistance may be provided throughout the activity or intermittently. 3-Partial/Moderate Assistance-helper does LESS THAN HALF the effort. [place] lifts, holds or supports trunk or limbs, but provides less than half the effort. 2-Substantial/Maximal Assistance-helper does MORE THAN HALF the effort. [place] lifts or holds trunk or limbs and provides more than half the effort. 7-Wzwwlvrqx-hyldsz does ALL the effort. Patient does none of the effort to complete the activity. Or, the assistance of 2 or more helpers is required for the patient to complete the activity. If activity was not attempted, code reason: 7-Patient Refused. 9-Not Applicable-not attempted and the patient did not perform the activity before the current illness, exacerbation or injury. 10-Not Attempted due to Environmental Limitations-(lack of equipment, weather restraints, etc.). 88-Not Attempted due to Medical Conditions or Safety Concerns. Sit to Lying (QC): 5 Lying to Sitting/Side of Bed(Q: 5 Sit to Stand (QC): 6 Pt independent /c sit<->stand trfs. Set up assist /c sit<->lying trfs. Weight Bearing Right Lower Extremity: Right Touch Toe Bearing Left Lower Extremity: Left Full Weight Bearing Gait Training Does the Patient Walk?: Yes Distance: 80, 10, 20 Walk 10 feet (QC): 6 Walk 50 ft with 2 Turns(QC): 6 Gait Persons Needed: 1 Gait Assistive Device: FWW Pt independent /c gait training. Amb. 110ft total /c FWW. Wheelchair Training Does the Pt Use a Wheelchair?: Yes Wheel 50 ft with 2 turns (QC): 6 Wheel 150 ft (QC): 6 Type of Wheelchair: Manual Pt independent /c WC training. Wheeled 200ft total. Stair Training Stair Training: Handrails/: 2 handrails #of Steps: 4 1 Step (curb) (QC): 4 4 Steps (QC): 4 Stairs: Pattern: Step to Pt CGA /c stair training. Exercises Supine Ex: Ankle pumps, Quad Set, Glut sets, Heel Slides, Straight leg raise, Hip abd/add Supine Reps: [address] Ex=Flex, Abd, Ext Standing Reps: 15 Pt tolerated exercise well /c no report of increased pain. AAROM /c supine SLRs and hip abd. Assessment Current Status: Fair Progress Pt tolerated Tx well but demonstrated signs of fatigue throughout Tx. Pt gait training endurance has improved this visit. Continue to progress pt as tolerated per POC to increase strength, endurance, functional ability, and decrease pain. PT Short Term Goals Short Term Goals Time Frame: May 25, 2022 Roll Left & Right: 4 (SBA) Sit to lyin (SBA) Lying to sitting on side of be: 4 (SBA) Sit to stand: 4 (CGA) Chair/cnt-vc-tsuwy transfer: 4 (SBA) Walk 10 feet: 4 (SBA) Walk 50 feet with two turns: 4 (SBA) Walk 150 feet: 4 (SBA) PT Assisted Goals Assisted Goals PT Health Insurance Agent Goals Time Frame: Jun 01, 2022 Roll Left & Right (QC): 6 Sit to Lying (QC): 6 Lying-Sitting on Side/Bed(QC): 6 Sit to Stand (QC): 6 Chair/Vrt-rv-Woyfu Xfer(QC): 6 Toilet Transfer (QC): 6 Car Transfer (QC): 6 Does the Patient Walk: Yes Walk 10 feet (QC): 6 Walk 50ft with 2 Turns (QC): 6 Walk 150 ft (QC): 6 Walking 10ft on Uneven Surface: 6 1 Step (curb) (QC): 4 4 Steps (QC): 4 12 Steps (QC): 88 Picking up an Object (QC): 6 Wheel 50 feet with 2 turns (QC: 9 Wheel 150 feet: 9 PT Plan Treatment/Plan Treatment Plan: Continue Plan of Care Treatment Plan: Bed Mobility, Education, Functional Activity Jus, Functional Strength, Group Therapy, Gait, Safety, Therapeutic Exercise, Transfers Treatment Duration: Jun 01, 2022 Frequency: At least 5 of 7 days/Wk (IRF) Estimated Hrs Per Day: 1.5 hours per day Patient and/or Family Agrees t: Yes Time Time In: 0800 Time Out: 0900 DATE: May 26, 2022 Total Billed Treatment Time: 60 Total Billed Treatment 1 visit FA 2x GT 1x EX 1x YOHANNES JUAREZ PTA May 26, 2022 09:00
--- NOTE | 2022-05-26 09:30 | Occupational Ther Daily Note ---
OT Current Status-Daily Note Subjective Pt alert, sitting in recliner. Pt states he is tired from PT session. Pt agrees to therapy. Pt states that he has had pain meds this am. Mental Status/Objective Patient Orientation: Person, Place, Time, Situation Attachments: IV ADL-Treatment Pt agrees to shower. Pt is tired and is having difficulty with problem solving and utilizing AE during dressing lower body. Pt understands and is able to use AE though when an obstacle occurs (ie-toe gets caught in fabric, unable to get foot into correct leg hole) pt needs cueing for placement of AE and sequencing task to completion. Pt has demonstrated ability to complete lower body dressing using AE when not tired and completes by self after set up. Using BSC and FWW, pt able to complete clothing manipulation by self and cues to cleanse self, pt will allow staff to complete if not cued. Sitting 100% of the time, pt able to complete shower by self using grabbars, LH sponge and hand held shower. Setup for upper body dressing and footwear (sockaide). Pt has demonstrated independence in oral care while sitting or standing. SBA and vc to complete lower body dressing after set up. Pt used gait belt leg cafe aide to lift R LE into bed independently. Therapy Code Descriptions/Definitions Functional [place] Measure: 0=Not Assessed/NA 4=Minimal Assistance 1=Total Assistance 5=Supervision or Setup 2=Maximal Assistance 6=Modified [place] 3=Moderate Assistance 7=Complete IndependenceSCALE: Activities may be completed with or without assistive devices. 8-Fttqjjtita-tmkfklj completes the activity by him/herself with no assistance from a helper. 5-Set-up or Clean-up Assistance-helper sets up or cleans up; patient completes activity. [place] assists only prior to or following the activity. 4-Supervision or Touching Assistance-helper provides verbal cues and/or touching/steadying and/or contact guard assistance as patient completes activity. Assistance may be provided throughout the activity or intermittently. 3-Partial/Moderate Assistance-helper does LESS THAN HALF the effort. [place] lifts, holds or supports trunk or limbs, but provides less than half the effort. 2-Substantial/Maximal Assistance-helper does MORE THAN HALF the effort. [place] lifts or holds trunk or limbs and provides more than half the effort. 5-Zniwevtaf-chhdpi does ALL the effort. Patient does none of the effort to complete the activity. Or, the assistance of 2 or more helpers is required for the patient to complete the activity. If activity was not attempted, code reason: 7-Patient Refused. 9-Not Applicable-not attempted and the patient did not perform the activity before the current illness, exacerbation or injury. 10-Not Attempted due to Environmental Limitations-(lack of equipment, weather restraints, etc.). 88-Not Attempted due to Medical Conditions or Safety Concerns. Eating (QC): 6 (Pt has demonstrated independence with eating.) Oral Hygiene (QC): 6 Shower/Bathe Self (QC): 6 Upper Body Dressing (QC): 5 Lower Body Dressing (QC): 4 (SBA and vc) On/Off Footwear: 5 Toileting Hygiene (QC): 6 Toilet Transfer (QC): 6 Other Treatment Pt completed 1 set 15 reps of heavy resistance theraband B UE exercises with skilled instruction and modifications. Pt only needed 1 cue to complete exercises. After therapy, pt lying in bed with call light/phone in reach. All needs met in room. BIMS CAM BIMS Expression of Ideas and Wants: Difficulty Understanding Verbal Content: Usually Understands Brief Interview/Mental Status: Yes IRF PARTH BIMS: IRF PARTH BIMS Response (Comments) Value Repitition of Three Words Three 3 Recalls Socks Yes, No Cue Required 2 Recalls Blue Yes, No Cue Required 2 Recalls Bed Yes, After Cueing 1 Year Correct 3 Month Accurate Within 5 Days 2 Day Correct 1 Total 14 Patient Normally Able to Recal: Current Session, Location of own room, That he/she in a [facility] Should Staff Asses. Mental St.: No OT Short Term Goals Short Term Goals Time Frame: May 25, 2022 Eatin Oral hygiene: 6 Toileting hygiene: 3 Shower/bathe self: 3 Upper body dressin Lower body dressin Putting on/taking off footwear: 3 OT Care Transition Mgr Goals Chcf Goals Time Frame: Jun 01, 2022 Acute change in mental status: 0 Inattention: 0 Disorganized thinkin Altered level of consciousness: 0 Eating (QC): 6 (met) Oral Hygiene (QC): 6 (met) Toileting Hygiene (QC): 6 (met) Shower/Bathe Self (QC): 6 (met) Upper Body Dressing (QC): 6 (not met) Lower Body Dressing (QC): 5 (not met) On/Off Footwear (QC): 5 (et) Additional Goals: 1-Demonstrate ADL Tasks, 2-Verbalize Understanding, 3- ImproveStrength/Jus 1=Demonstrate adherence to instructed precautions during ADL tasks. 2=Patient will verbalize/demonstrate understanding of assistive devices/modifica tions for ADL. 3=Patient will improve strength/tolerance for activity to enable patient to perform ADL's. OT Education/Plan Problem List/Assessment Assessment: Decreased Activ Tolerance, Impaired Self-Care Skills Discharge Recommendations Plan/Recommendations: Continue POC Therapy Discharge Recommendati: Home & Family, Post Acute OT Equpiment Recommendations-D/C: Extended Bath Bench, Rails on Tub/Shower, Toilet Riser with Rails, Hip Kit Treatment Plan/Plan of Care Patient would benefit from OT for education, treatment and training to promote independence in ADL's, mobility, safety and/or upper extremity function for ADL's. Plan of Care: ADL Retraining, Functional Mobility, Group Exercise/Act as Ind, UE Funct Exercise/Act Treatment Duration: Jun 01, 2022 Frequency: At least 5 of 7 days/Wk (IRF) Estimated Hrs Per Day: 1.5 hours per day Rehab Potential: Fair Time Start Time: 09:00 Stop Time: 10:30 DATE: May 26, 2022 Total Time Billed (hr/min): 90 Billed Treatment Time 1 visit-ADL 5 (75 min) EX 1 (15 min) ROBIN HECK May 26, 2022 09:30
--- NOTE | 2022-05-26 10:39 | PM&R Progress Note ---
Subjective HPI/CC On Admission Date Seen by Provider: May 26, 2022 Time Seen by Provider: 12:00 Subjective/Events-last exam 05/26/2022: Patient doing really well Ready for discharge tomorrow 05/25/2022: Patient doing well No pain reported at this point unless he moves Bowels are moving No other concerns 05/24/2022: No major issues Pain controlled Iron infusions tolerated 05/23/2022: Patient in a good mood No other concerns Pain is controlled Labs stable IV iron infusion indicated 05/22/2022: Patient in a good mood Pain is controlled Bowels are moving 05/21/2022: Patient doing well Pain is well controlled Bowels are moving No concerns 05/20/2022: No major issues Pain is controlled Participating in therapy Supportive care will continue 05/19/2022: Doing very well Pain controlled BM needs to occur so giving meds No falls Slept well last night Review of Systems General: Fatigue, Malaise Musculoskeletal: leg pain Objective Exam Vital Signs Vital Signs Date Time Temp Pulse Resp B/P (MAP) Pulse Ox O2 Delivery O2 Flow Rate FiO2 05/26/22 20:29 Room Air 05/26/22 19:54 36.5 85 16 115/72 (86) 99 Capillary Refill : General Appearance: No Apparent Distress, WD/WN HEENT: PERRL/EOMI, Normal ENT Inspection, Pharynx Normal Neck: Full Range of Motion, Normal Inspection, Non Tender, Supple, Carotid Bruit Respiratory: Chest Non Tender, Lungs Clear, Normal Breath Sounds, No Accessory Muscle Use, No Respiratory Distress Cardiovascular: Regular Rate, Rhythm, No Edema, No Gallop, No JVD, No Murmur, Normal Peripheral Pulses Gastrointestinal: Normal Bowel Sounds, No Organomegaly, No Pulsatile Mass, Non Tender, Soft Back: Normal Inspection, No CVA Tenderness, No Vertebral Tenderness Extremity: Normal Capillary Refill, Normal Inspection, Normal Range of Motion, Non Tender, No Calf Tenderness, No Pedal Edema Neurologic/Psychiatric: Alert, Oriented x3, No Motor/Sensory Deficits, Normal Mood/Affect, obstetrics scrub nurse II-XII Norm as Tested, Abnormal Gait, Motor Weakness Skin: Normal Color, Warm/Dry Lymphatic: No Adenopathy Results/Procedures Lab Patient resulted labs reviewed. FIM Transfers Therapy Code Descriptions/Definitions Functional [place] Measure: 0=Not Assessed/NA 4=Minimal Assistance 1=Total Assistance 5=Supervision or Setup 2=Maximal Assistance 6=Modified [place] 3=Moderate Assistance 7=Complete IndependenceSCALE: Activities may be completed with or without assistive devices. 1-Epfanulqox-xyvbpek completes the activity by him/herself with no assistance from a helper. 5-Set-up or Clean-up Assistance-helper sets up or cleans up; patient completes activity. [place] assists only prior to or following the activity. 4-Supervision or Touching Assistance-helper provides verbal cues and/or touching/steadying and/or contact guard assistance as patient completes activity. Assistance may be provided throughout the activity or intermittently. 3-Partial/Moderate Assistance-helper does LESS THAN HALF the effort. [place] lif ts, holds or supports trunk or limbs, but provides less than half the effort. 2-Substantial/Maximal Assistance-helper does MORE THAN HALF the effort. [place] lifts or holds trunk or limbs and provides more than half the effort. 9-Fwmvbjbxu-cumxbo does ALL the effort. Patient does none of the effort to complete the activity. Or, the assistance of 2 or more helpers is required for the patient to complete the activity. If activity was not attempted, code reason: 7-Patient Refused. 9-Not Applicable-not attempted and the patient did not perform the activity before the current illness, exacerbation or injury. 10-Not Attempted due to Environmental Limitations-(lack of equipment, weather restraints, etc.). 88-Not Attempted due to Medical Conditions or Safety Concerns. Roll Left to Right (QC): 3 Sit to Lying (QC): 5 Sit to Stand (QC): 6 Chair/Qoy-ld-Nakat Xfer(QC): 6 Car Transfer (QC): 3 Gait Training Does the Patient Walk?: Yes Distance: 80, 10, 20 Walk 10 feet (QC): 6 Walk 50 ft with 2 Turns(QC): 6 Walk 150 ft (QC): 6 Walking 10ft/uneven surface-QC: 88 Gait Persons Needed: 1 Gait Assistive Device: FWW Wheelchair Training Does the Pt Use a Wheelchair?: Yes Distance: 100' Wheel 50 ft with 2 turns (QC): 6 Wheel 150 ft (QC): 6 Type of Wheelchair: Manual Stair Training Stair Training: Handrails/: 2 handrails #of Steps: 4 1 Step (curb) (QC): 4 4 Steps (QC): 4 12 Steps (QC): 88 Stairs: Pattern: Step to Balance Picking up an Object (QC): 4 (CGA using proposal lead writer) ADL-Treatment Eating (QC): 6 (Pt has demonstrated independence with eating.) Oral Hygiene (QC): 6 Bathing Location: L Arm, R Arm, L Upper Leg, R Upper Leg, L Lower Leg (including foot), R Lower Leg (including foot), Chest, Abdomen, Buttocks, Perineal Area Shower/Bathe Self (QC): 6 Upper Body Dressing (QC): 5 Lower Body Dressing (QC): 4 (SBA and vc) On/Off Footwear (QC): 5 Toileting Hygiene (QC): 6 Toilet Transfer (QC): 6 Assessment/Plan Assessment and Plan Assess & Plan/Chief Complaint A/P: Right intertrochanteric femur fracture S/p repair - IM ash Management per Ortho Pain regimen Bowel regimen PT/OT Admitted to IRU Anemia severe iron deficiency started on iron infusions Nausea and vomiting Upper GI bleeding Possibly due to Cecille-Chung tear Hgb stable, monitor Continue Protonix Bowel regimen Add suppository Antiemetics as needed Presumed schizophrenia Maintained on fluphenazine DVT ppx: Lovenox 05/19/2022: Continue current treatment PPI IV to be changed to PO if surgery approves 05/20/2022: Continue monitoring hemoglobin Supportive care 05/21/2022: Supportive detention meds 05/22/2022: Supportive care Pain control 05/23/2022: IV iron infusions 05/24/2022: Iron infusions Pain control 05/25/2022: Continue iron infusions Discharge plan 05/26/2022: Discharge plan tomorrow (1) Intertrochanteric fracture of right hip Status: Acute (2) GI bleed Status: Acute (3) Nausea & vomiting Status: Acute (4) Anemia Status: Acute (5) Fall on same level Status: Acute LULA RUBI DO May 26, 2022 10:39
--- NOTE | 2022-05-26 14:06 | Physical Therapy Daily Note ---
PT Daily Note-Current Subjective Pt found seated in bed upon entry. Agreed to PT. Does not rate or report any change in pain. Pain Section J - Health Conditions 1. Rarely or not at all 2. Occasionally 3. Frequently 4. Almost constantly 8. Unable to answer Pain Effect on Sleep: 4 Pain Interference with Therapy: 4 Pain Interference w/Day-to-Day: 4 Mental Status Patient Orientation: Normal For Age Transfers SCALE: Activities may be completed with or without assistive devices. 8-Psuohuxxgc-hbgcfwy completes the activity by him/herself with no assistance from a helper. 5-Set-up or Clean-up Assistance-helper sets up or cleans up; patient completes activity. Alvarado assists only prior to or following the activity. 4-Supervision or Touching Assistance-helper provides verbal cues and/or touching/steadying and/or contact guard assistance as patient completes activity. Assistance may be provided throughout the activity or intermittently. 3-Partial/Moderate Assistance-helper does LESS THAN HALF the effort. Alvarado lifts, holds or supports trunk or limbs, but provides less than half the effort. 2-Substantial/Maximal Assistance-helper does MORE THAN HALF the effort. Alvarado lifts or holds trunk or limbs and provides more than half the effort. 4-Drkibslyd-mszktd does ALL the effort. Patient does none of the effort to complete the activity. Or, the assistance of 2 or more helpers is required for the patient to complete the activity. If activity was not attempted, code reason: 7-Patient Refused. 9-Not Applicable-not attempted and the patient did not perform the activity before the current illness, exacerbation or injury. 10-Not Attempted due to Environmental Limitations-(lack of equipment, weather restraints, etc.). 88-Not Attempted due to Medical Conditions or Safety Concerns. Roll Left & Right (QC): 4 Sit to Lying (QC): 5 Lying to Sitting/Side of Bed(Q: 5 Sit to Stand (QC): 6 Chair/Xxa-jw-Nfxsb Xfer(QC): 6 Toilet Transfer (QC): 6 Car Transfer (QC): 6 Pt MIN assist /c rolling. Set up assist /c sit<->lying. Weight Bearing Right Lower Extremity: Right Touch Toe Bearing Left Lower Extremity: Left Full Weight Bearing Gait Training Does the Patient Walk?: Yes Distance: 60, 20 Walk 10 feet (QC): 6 Walk 50 ft with 2 Turns(QC): 6 Walk 150 ft (QC): 88 Walking 10ft/uneven surface-QC: 6 Gait Persons Needed: 1 Gait Assistive Device: FWW Pt independent /c gait training. Amb. 80ft total /c FWW. Wheelchair Training Does the Pt Use a Wheelchair?: Yes Wheel 50 ft with 2 turns (QC): 6 Wheel 150 ft (QC): 6 Type of Wheelchair: Manual Pt independent /c WC training. Wheeled 200ft total. Stair Training Stair Training: Handrails/: 2 handrails #of Steps: 4 1 Step (curb) (QC): 4 4 Steps (QC): 4 12 Steps (QC): 88 Stairs: Pattern: Step to Pt CGA /c stair training. Balance Picking up an Object (QC): 6 Assessment Current Status: Fair Progress Pt demonstrated signs of fatigue and R hip pain throughout Tx. Unable to lay on R side d/t pain. Pt displays limited Tx tolerance and required seated RBs. Continue to progress pt as tolerated per POC to increase strength, endurance, functional ability, and decrease pain. PT Short Term Goals Short Term Goals Time Frame: May 25, 2022 Roll Left & Right: 4 (SBA) Sit to lyin (SBA) Lying to sitting on side of be: 4 (SBA) Sit to stand: 4 (CGA) Chair/kul-si-cvcvl transfer: 4 (SBA) Walk 10 feet: 4 (SBA) Walk 50 feet with two turns: 4 (SBA) Walk 150 feet: 4 (SBA) PT Shopping Inspector Goals Detention Goals PT Detention Goals Time Frame: Jun 01, 2022 Roll Left & Right (QC): 6 Sit to Lying (QC): 6 Lying-Sitting on Side/Bed(QC): 6 Sit to Stand (QC): 6 Chair/Xlr-hd-Ydxww Xfer(QC): 6 Toilet Transfer (QC): 6 Car Transfer (QC): 6 Does the Patient Walk: Yes Walk 10 feet (QC): 6 Walk 50ft with 2 Turns (QC): 6 Walk 150 ft (QC): 6 Walking 10ft on Uneven Surface: 6 1 Step (curb) (QC): 4 4 Steps (QC): 4 12 Steps (QC): 88 Picking up an Object (QC): 6 Wheel 50 feet with 2 turns (QC: 9 Wheel 150 feet: 9 PT Plan Treatment/Plan Treatment Plan: Continue Plan of Care Treatment Plan: Bed Mobility, Education, Functional Activity Jus, Functional Strength, Group Therapy, Gait, Safety, Therapeutic Exercise, Transfers Treatment Duration: Jun 01, 2022 Frequency: At least 5 of 7 days/Wk (IRF) Estimated Hrs Per Day: 1.5 hours per day Patient and/or Family Agrees t: Yes Time Time In: 1315 Time Out: 1345 DATE: May 26, 2022 Total Billed Treatment Time: 30 Total Billed Treatment 1 visit GT 1x FA 1x YOHANNES JUAREZ PTA May 26, 2022 14:05
[2022-05-26 19:54] VITALS: BP 115/72
[2022-05-27] MEDS ORDERED: HYDR-34 PO (05:14)
[2022-05-27] MEDS ORDERED: ONDA4TAB11 PO (05:14)
[2022-05-27] MEDS ORDERED: PANT40TA52 PO (05:14)
[2022-05-27] MEDS ORDERED: SENN1TAB76 PO (05:14)
--- NOTE | 2022-05-27 05:16 | D/C HH Face to Face Order ---
D/C HH Face to Face Orders Reconcile Patient Problems Problems Reviewed?: Yes Instructions for Patient HH Patient Instructions/FollowUp: PCP Dr Lewis Physician to follow Patient: Debbie Discharge Diet for Home: No Restrictions Patient Problems: Hip fracture Patient Data-Allergies,Ht & Wt Patient Allergies: Coded Allergies: No Known Drug Allergies (Unverified , 05/12/22) Home Health Need/Face to Face Date of Face to Face: May 27, 2022 Clinical Findings: Muscle weakness, Non or partial weight bearing I have seen Pt ycpu-gi-vand: Yes Discharged To: Home Diagnosis/Conditions: Hip fx Patient is Homebound due to: CognItive deficits, Jayashree fall risk due to instabilty, Muscle weakness, Pain w/ambulation Homebound Status Due to the above stated illness, injury or surgical procedure (medical condition or diagnosis) and associated clinical findings, the patient is homebound because of his/her inability to leave home except with aid of a supportive device and/or person AND leaving the home requires a considerable and taxing effort or is medically contraindicated. Pt req the following assistanc: Walker Home Health Nursing Orders Home Health Services Order: Nursing Services, Typewriter Repairer-Evaluate & Treat, Physical Therapy-Evaluate & Treat Certify Stmt I certify that this patient is under my care and that I, a nurse practitioner or a physician; a equal opportunity assistant working with me, had a face to face encounter that - meets the physician face to face encounter requirements with this patient as dated. LULA LEWIS DO May 27, 2022 05:16
--- NOTE | 2022-05-27 05:16 | Discharge Summary ---
Diagnosis/Chief Complaint Date of Admission May 18, 2022 at 10:30 Date of Discharge Discharge Date: May 27, 2022 Discharge Diagnosis A/P: Right intertrochanteric femur fracture S/p repair - IM ash Management per Ortho Pain regimen Bowel regimen PT/OT Admitted to IRU Anemia severe iron deficiency started on iron infusions Nausea and vomiting Upper GI bleeding Possibly due to Cecille-Chung tear Hgb stable, monitor Continue Protonix Bowel regimen Add suppository Antiemetics as needed Presumed schizophrenia Maintained on fluphenazine DVT ppx: Lovenox 05/19/2022: Continue current treatment PPI IV to be changed to PO if surgery approves 05/20/2022: Continue monitoring hemoglobin Supportive care 05/21/2022: Supportive FDC meds 05/22/2022: Supportive care Pain control 05/23/2022: IV iron infusions 05/24/2022: Iron infusions Pain control 05/25/2022: Continue iron infusions Discharge plan 05/26/2022: Discharge plan tomorrow (1) Intertrochanteric fracture of right hip Status: Acute (2) GI bleed Status: Acute (3) Nausea & vomiting Status: Acute (4) Anemia Status: Acute (5) Fall on same level Status: Acute Discharge Summary Discharge Physical Examination Allergies: Coded Allergies: No Known Drug Allergies (Unverified , 05/12/22) Vitals & I&Os Vital Signs Date Time Temp Pulse Resp B/P (MAP) Pulse Ox O2 Delivery O2 Flow Rate FiO2 05/27/22 13:57 36.2 86 20 97/66 98 Room Air General Appearance: Alert, Oriented X3, Cooperative Respiratory: Clear to Auscultation Cardiovascular: Regular Rate Psych/Mental Status: Mental Status NL Hospital Course Was the Problem List Reviewed?: Yes Uneventful hospital course. He did require iron infusions for severe iron deficiency anemia after suffering gastric ulcer bleed requiring proton pump inhibitor twice daily. He participated in all therapy and regained function with independence he will go to live with his sister until he is recovered and I will see him in clinic for follow-up. Labs (last 24 hrs) Laboratory Tests 05/19/22 05:32: White Blood Count 10.6, Red Blood Count 2.77L, Hemoglobin 8.4L, Hematocrit 25L, Mean Corpuscular Volume 91, Mean Corpuscular Hemoglobin 30, Mean Corpuscular Hemoglobin Concent 34, Red Cell Distribution Width 12.2, Platelet Count 359, Mean Platelet Volume 9.1, Immature Granulocyte % (Auto) 2, Neutrophils (%) (Auto) 77H, Lymphocytes (%) (Auto) 9L, Monocytes (%) (Auto) 9, Eosinophils (%) (Auto) 3, Basophils (%) (Auto) 0, Neutrophils # (Auto) 8.2H, Lymphocytes # (Auto) 1.0, Monocytes # (Auto) 1.0, Eosinophils # (Auto) 0.3, Basophils # (Auto) 0.0, Immature Granulocyte # (Auto) 0.2H, Sodium Level 134L, Potassium Level 3.6, Chloride Level 101, Carbon Dioxide Level 21, Anion Gap 12, Blood Urea Nitrogen 17, Creatinine 0.83, Estimat Glomerular Filtration Rate 97, BUN/Creatinine Ratio 20, Glucose Level 128H, Calcium Level 8.2L, Corrected Calcium 9.1, Iron Level 22L, Total Bilirubin 0.6, Aspartate Amino Transf (AST/SGOT) 23, Alanine Aminotransferase (ALT/SGPT) 26, Alkaline Phosphatase 39L, Total Protein 5.7L, Albumin 2.9L, Vitamin B12 Level 479 05/23/22 06:00: White Blood Count 8.7, Red Blood Count 2.96L, Hemoglobin 8.9L, Hematocrit 27L, Mean Corpuscular Volume 92, Mean Corpuscular Hemoglobin 30, Mean Corpuscular Hemoglobin Concent 33, Red Cell Distribution Width 12.9, Platelet Count 435H, Mean Platelet Volume 8.7L, Immature Granulocyte % (Auto) 2, Neutrophils (%) (Auto) 71, Lymphocytes (%) (Auto) 17, Monocytes (%) (Auto) 6, Eosinophils (%) (Auto) 3, Basophils (%) (Auto) 1, Neutrophils # (Auto) 6.2, Lymphocytes # (Auto) 1.5, Monocytes # (Auto) 0.5, Eosinophils # (Auto) 0.2, Basophils # (Auto) 0.0, Immature Granulocyte # (Auto) 0.2H, Sodium Level 136, Potassium Level 4.0, Chloride Level 105, Carbon Dioxide Level 22, Anion Gap 9, Blood Urea Nitrogen 12, Creatinine 0.86, Estimat Glomerular Filtration Rate 96, BUN/Creatinine Ratio 14, Glucose Level 102, Calcium Level 8.5, Corrected Calcium 9.2, Total Bilirubin 0.5, Aspartate Amino Transf (AST/SGOT) 56H, Alanine Aminotransferase (ALT/SGPT) 85H, Alkaline Phosphatase 87, Total Protein 6.2L, Albumin 3.1L Pending Labs Laboratory Tests 05/19/22 05:32: White Blood Count 10.6, Red Blood Count 2.77, Hemoglobin 8.4, Hematocrit 25, Mean Corpuscular Volume 91, Mean Corpuscular Hemoglobin 30, Mean Corpuscular He moglobin Concent 34, Red Cell Distribution Width 12.2, Platelet Count 359, Mean Platelet Volume 9.1, Immature Granulocyte % (Auto) 2, Neutrophils (%) (Auto) 77, Lymphocytes (%) (Auto) 9, Monocytes (%) (Auto) 9, Eosinophils (%) (Auto) 3, Basophils (%) (Auto) 0, Neutrophils # (Auto) 8.2, Lymphocytes # (Auto) 1.0, Monocytes # (Auto) 1.0, Eosinophils # (Auto) 0.3, Basophils # (Auto) 0.0, Immature Granulocyte # (Auto) 0.2, Sodium Level 134, Potassium Level 3.6, Chloride Level 101, Carbon Dioxide Level 21, Anion Gap 12, Blood Urea Nitrogen 17, Creatinine 0.83, Estimat Glomerular Filtration Rate 97, BUN/Creatinine Ratio 20, Glucose Level 128, Calcium Level 8.2, Corrected Calcium 9.1, Iron Level 22, Total Bilirubin 0.6, Aspartate Amino Transf (AST/SGOT) 23, Alanine Aminotransferase (ALT/SGPT) 26, Alkaline Phosphatase 39, Total Protein 5.7, Albumin 2.9, Vitamin B12 Level 479 05/23/22 06:00: White Blood Count 8.7, Red Blood Count 2.96, Hemoglobin 8.9, Hematocrit 27, Mean Corpuscular Volume 92, Mean Corpuscular Hemoglobin 30, Mean Corpuscular Hemoglobin Concent 33, Red Cell Distribution Width 12.9, Platelet Count 435, Mean Platelet Volume 8.7, Immature Granulocyte % (Auto) 2, Neutrophils (%) (Auto) 71, Lymphocytes (%) (Auto) 17, Monocytes (%) (Auto) 6, Eosinophils (%) (Auto) 3, Basophils (%) (Auto) 1, Neutrophils # (Auto) 6.2, Lymphocytes # (Auto) 1.5, Monocytes # (Auto) 0.5, Eosinophils # (Auto) 0.2, Basophils # (Auto) 0.0, Immature Granulocyte # (Auto) 0.2, Sodium Level 136, Potassium Level 4.0, Ch loride Level 105, Carbon Dioxide Level 22, Anion Gap 9, Blood Urea Nitrogen 12, Creatinine 0.86, Estimat Glomerular Filtration Rate 96, BUN/Creatinine Ratio 14, Glucose Level 102, Calcium Level 8.5, Corrected Calcium 9.2, Total Bilirubin 0.5, Aspartate Amino Transf (AST/SGOT) 56, Alanine Aminotransferase (ALT/SGPT) 85, Alkaline Phosphatase 87, Total Protein 6.2, Albumin 3.1 Discharge Home Medications: Active Scripts Active Ondansetron Odt (Ondansetron) 4 Mg Tab.rapdis 4 Mg PO Q6H PRN Pantoprazole Sodium 40 Mg Tablet.dr 40 Mg PO BIDAC Stool Softener-Laxative Tablet (Sennosides/Docusate Sodium) 8.6 Mg-50 Mg Tablet 1 Ea PO BID HYDROcodone/APAP 7.5/325 TAB (Acetaminophen/Hydrocodone Bitart) 1 Ea Tablet 1 Ea PO Q6H PRN Reported Fluphenazine Decanoate 25 Mg/Ml Vial 0.75 Ml IJ Q3 WEEKS Benztropine Mesylate 2 Mg Tablet 2 Mg PO BID Instructions to patient/family Please see electronic discharge instructions given to patient. Diagnosis/Problems Diagnosis/Problems (1) Intertrochanteric fracture of right hip Status: Acute (2) GI bleed Status: Acute (3) Nausea & vomiting Status: Acute (4) Anemia Status: Acute (5) Fall on same level Status: Acute LULA RUBI DO May 27, 2022 05:16
[2022-05-27] MEDS: PANTOPRAZOLE 40 MG (PROTONIX) TAB PO SCH (06:05)
[2022-05-27] MEDS: HYDROcodone/APAP 7.5 MG/325 MG (LORTAB, LORCET PLUS) TABLET PO PRN ×2 (06:50→11:46)
[2022-05-27 07:10] VITALS: BP 97/66
[2022-05-27] MEDS: SENNA W/DOCUSATE (SENOKOT S) TABLET PO SCH (08:03)
[2022-05-27] MEDS: polyethylene glycoL POWDER 17 GM (MIRALAX) PACK PO SCH (08:03)
[2022-05-27] MEDS: DOCUSATE SODIUM 100 MG (COLACE) CAP PO SCH (08:03)
[2022-05-27] MEDS: IRON SUCROSE 200 MG/10 ML (VENOFER) VIAL IV SCH (08:08)
[2022-05-27] MEDS: BENZTROPINE MESYLATE 1 MG (COGENTIN) TAB PO SCH (08:08)
[2022-05-27] MEDS: ENOXAPARIN 40 MG/0.4 ML (LOVENOX) SYR SC SCH (08:08)
--- NOTE | 2022-05-27 11:45 | Therapy Team Discharge Summary ---
Therapy Discharge Summary Discharge Recommendations Date of Discharge Therapy D/C Recommendations: Home w/ Family Support, Occupational Therapy Home Care, Homemaker Support Physical Therapy Roll Left to Right (QC): 4 Sit to Lying (QC): 5 Lying to Sitting/Side of Bed(Q: 5 Sit to Stand (QC): 6 Chair/Gcn-gv-Uyhcp Xfer(QC): 6 Toilet Transfer (QC): 5 Car Transfer (QC): 6 Does the Patient Walk: Yes Mode of Locomotion: Walk Anticipated Mode of Locomotion: Walk Walk 10 feet (QC): 6 Walk 50 ft with 2 Turns(QC): 6 Walk 150 ft (QC): 88 Walking 10ft on uneven surface: 6 Distance: 50'x2 Gait Assistive Device: FWW Does the Pt Use a Wheelchair: Yes Wheelchair Distance: 100' Wheel 50 ft with 2 turns (QC): 6 Wheel 150 ft (QC): 6 Type of Wheelchair: Manual #of Steps: 4 1 Step (curb) (QC): 4 4 Steps (QC): 4 12 Steps (QC): 88 Balance Sitting Static: Normal Balance Sitting Dynamic: Normal Balance-Standing Static: Fair Picking up an Object (QC): 6 Occupational Therapy Pt admitted to ARU s/p [facility]. At time of evaluation he was dependent for footwear, max a for toileting and lower body dressing, mod a for bathing, min a for oral care, and set up for eating and upper body dressing. During his rehab stay, OT focused on hip precautions, adaptive equipment, compensatory strategies, balance, safety, endurance, strengthening, and cognition in order to improver performance and independence with adls and functional mobility. Pt made fair progress but did not meet all of his residential goals (upper and lower body dressing) due to needing cues for safety and assist with Set up. See below for current levels of assistance. Pt will be discharging from this facility later today and will be discharged from OT at this time. Decreased Activ Tolerance, Impaired Self-Care Skills Eating (QC): 6 (Pt has demonstrated independence with eating.) Oral Hygiene (QC): 6 Shower/Bathe Self (QC): 6 Upper Body Dressing (QC): 5 Lower Body Dressing (QC): 4 (SBA and vc) On/Off Footwear (QC): 5 Toileting Hygiene (QC): 6 PT Half-Way Goals Cyberathlete Goals PT Half-Way Goals Time Frame: Jun 01, 2022 Roll Left to Right (QC): 6 Sit to Lying (QC): 6 Lying-Sitting on Side/Bed(QC): 6 Sit to Stand (QC): 6 Chair/Otn-yr-Qivro Xfer(QC): 6 Toilet/Commode Transfer (QC): 6 Car Transfer (QC): 6 Does the Patient Walk: Yes Walk 10 feet (QC): 6 Walk 10ft-Uneven Surface(QC): 6 Walk 50ft with 2 Turns (QC): 6 Walk 150 ft (QC): 6 Wheel 50 feet with 2 turns (QC: 9 Wheel 150 feet: 9 1 Step (curb) (QC): 4 4 Steps (QC): 4 12 Steps (QC): 88 Picking up an Object (QC): 6 OT Half-Way Goals Cyberathlete Goals Time Frame: Jun 01, 2022 Acute change in mental status: 0 Inattention: 0 Disorganized thinkin Altered level of consciousness: 0 Eating (QC): 6 (met) Oral Hygiene (QC): 6 (met) Toileting Hygiene (QC): 6 (met) Shower/Bathe Self (QC): 6 (met) Upper Body Dressing (QC): 6 (not met) Lower Body Dressing (QC): 5 (not met) On/Off Footwear (QC): 5 (et) Additional Goals: 1-Demonstrate ADL Tasks, 2-Verbalize Understanding, 3- ImproveStrength/Jus 1=Demonstrate adherence to instructed precautions during ADL tasks. 2=Patient will verbalize/demonstrate understanding of assistive devices/modifications for ADL. 3=Patient will improve strength/tolerance for activity to enable patient to perform ADL's. Marina Tuttle OT May 27, 2022 11:45
--- NOTE | 2022-05-27 12:35 | Therapy Team Discharge Summary ---
Therapy Discharge Summary Discharge Recommendations Date of Discharge Therapy D/C Recommendations: Home w/ Family Support, Occupational Therapy Home Care, Homemaker Support Physical Therapy Patient came to rehab with right hip ORIF. Upon evaluation patient performs rolling and supine <-> sit with min assist, sit <-> stand min assist, transfers CGA, car transfer min assist, ambulate 50' with a rolling walker with CGA (i ncluding 50' with at least 2 turns of 90 degrees), can propel a manual WC 100' with SBA, and can pickle cutter an object from the floor using a casework specialist with CGA. Patient has been performing bed mobility and transfer training, balance and endurance training, functional strengthening, stair training, gait training, and education. Patient has made fair progress but has only met his medical terminologist goals for picking up an object from the floor and stairs and transfers. Now, patient performs rolling with min assist, supine <-> sit with setup, sit <-> stand and transfers with independence, car transfer independent, ambulates 60' with a rolling walker with independence (including 50' with at least 2 turns of 90 degrees and 10' over an uneven surface), can propel a manual WC 150' with independence, can go up and down 4 steps using 2 handrails with CGA, and can pickle cutter an object from the floor with independence. Patient is being discharged from this facility today and will be discharged from PT at this time. Roll Left to Right (QC): 3 Sit to Lying (QC): 5 Lying to Sitting/Side of Bed(Q: 5 Sit to Stand (QC): 6 Chair/Rfu-ys-Bgbcz Xfer(QC): 6 Toilet Transfer (QC): 6 Car Transfer (QC): 6 Does the Patient Walk: Yes Mode of Locomotion: Walk Anticipated Mode of Locomotion: Walk Walk 10 feet (QC): 6 Walk 50 ft with 2 Turns(QC): 6 Walk 150 ft (QC): 88 Walking 10ft on uneven surface: 6 Distance: 50'x2 Gait Assistive Device: FWW Does the Pt Use a Wheelchair: Yes Wheelchair Distance: 150' Wheel 50 ft with 2 turns (QC): 6 Wheel 150 ft (QC): 6 Type of Wheelchair: Manual #of Steps: 4 1 Step (curb) (QC): 4 4 Steps (QC): 4 12 Steps (QC): 88 Balance Sitting Static: Normal Balance Sitting Dynamic: Normal Balance-Standing Static: Fair Picking up an Object (QC): 6 Occupational Therapy Decreased Activ Tolerance, Impaired Self-Care Skills Eating (QC): 6 (Pt has demonstrated independence with eating.) Oral Hygiene (QC): 6 Shower/Bathe Self (QC): 6 Upper Body Dressing (QC): 5 Lower Body Dressing (QC): 4 (SBA and vc) On/Off Footwear (QC): 5 Toileting Hygiene (QC): 6 PT Freight Shipping Agent Goals Senior Care Goals PT Freight Shipping Agent Goals Time Frame: Jun 01, 2022 Roll Left to Right (QC): 6 Sit to Lying (QC): 6 Lying-Sitting on Side/Bed(QC): 6 Sit to Stand (QC): 6 Chair/Eec-lj-Axhor Xfer(QC): 6 Toilet/Commode Transfer (QC): 6 Car Transfer (QC): 6 Does the Patient Walk: Yes Walk 10 feet (QC): 6 Walk 10ft-Uneven Surface(QC): 6 Walk 50ft with 2 Turns (QC): 6 Walk 150 ft (QC): 6 Wheel 50 feet with 2 turns (QC: 9 Wheel 150 feet: 9 1 Step (curb) (QC): 4 4 Steps (QC): 4 12 Steps (QC): 88 Picking up an Object (QC): 6 OT Senior Care Goals Senior Care Goals Time Frame: Jun 01, 2022 Acute change in mental status: 0 Inattention: 0 Disorganized thinkin Altered level of consciousness: 0 Eating (QC): 6 (met) Oral Hygiene (QC): 6 (met) Toileting Hygiene (QC): 6 (met) Shower/Bathe Self (QC): 6 (met) Upper Body Dressing (QC): 6 (not met) Lower Body Dressing (QC): 5 (not met) On/Off Footwear (QC): 5 (et) Additional Goals: 1-Demonstrate ADL Tasks, 2-Verbalize Understanding, 3- ImproveStrength/Jus 1=Demonstrate adherence to instructed precautions during ADL tasks. 2=Patient will verbalize/demonstrate understanding of assistive devices/modifications for ADL. 3=Patient will improve strength/tolerance for activity to enable patient to perform ADL's. BOSTON HIGHTOWER PT May 27, 2022 12:35
[2022-05-27 13:57] VITALS: BP 97/66
== END 2022-05-27 14:05 | disposition home health service (06) | DRG 560 ==
PROVIDERS: ADMIT Internal Medicine; ATTEND Internal Medicine
DX: S72.141D Displaced intertrochanteric fracture of right femur, subsequent encounter for closed fracture with routine healing (principal); D62 Acute posthemorrhagic anemia; K92.2 Gastrointestinal hemorrhage, unspecified; F20.9 Schizophrenia, unspecified; F70 Mild intellectual disabilities; F41.9 Anxiety disorder, unspecified; F32.A Depression, unspecified; R11.2 Nausea with vomiting, unspecified; R53.83 Other fatigue; R53.81 Other malaise; W01.0XXD Fall on same level from slipping, tripping and stumbling without subsequent striking against object, subsequent encounter
CPT/HCPCS: 36415; 80053; 82607; 83540; 85025